=== PATIENT | male | born 1945 | race Caucasian/White ===

== ENCOUNTER → 2017-02-27 | Outpatient (CLI) | payer OTHER ==
[~2017-02-27] MED LIST: AMLO10TA2 PO; ASPI-435 PO; BUPRTAB51 PO; GLIM1TAB2 PO; HYG/25 PO; LABE1TAB28 PO; LANS15CA6 PO; LOSA1TAB38 PO; OFLO0.3S4 OPL; PIOG15TA26 PO; PRED1SUS3 OPL; PSYLCAP5 PO; SIMV10TA5 PO; VENL150T33 PO
[2017-02-27 13:32] LABS: ESTIMATED AVERAGE GLUCOSE 180 mg/dl; HA1C FLAG Normal (Normal)
[2017-02-27 13:58] LABS: CALCIUM 9.1 mg/dl (8.5-10.1)
[2017-02-27 14:11] LABS: ALT/SGPT 56 U/L (12-78); BLOOD UREA NITROGEN 21 mg/dl (7-18); BUN/CREATININE RATIO 23.1 (10-20); CARBON DIOXIDE 28 mmol/L (21-32); CHLORIDE 103 mmol/L (98-107); CHOLESTEROL 164 mg/dl (0-200); CREATININE 0.89 mg/dl (0.60-1.40); GLUCOSE 184 mg/dl (70-99); POTASSIUM 3.6 mmol/L (3.5-5.1); SODIUM 139 mmol/L (136-145); TRIGLYCERIDES 119 mg/dl (0-150); VERY LOW DENSITY LIPOPROT CALC 24 mg/dl
[2017-02-27 14:14] LABS: ALB/GLOB RATIO 1.2 (0.9-2); ALKALINE PHOSPHATASE 103 U/L (45-117); AST/SGOT 52 U/L (15-37); CHOLESTEROL/HDL RATIO 3.7; HDL CHOLESTEROL 44 mg/dl; LDL CHOLESTEROL CALCULATED 96 mg/dl
== END | disposition home or self-care (01) ==
LOC: C.LABMFLN 09:06
PROVIDERS: ATTEND Urology
DX: E11.9 Type 2 diabetes mellitus without complications (principal); E78.00 Pure hypercholesterolemia, unspecified; R97.20 Elevated prostate specific antigen [PSA]

== ENCOUNTER → 2017-07-07 | Outpatient (CLI) | payer OTHER ==
[2017-07-07 14:20] LABS: ALT/SGPT 43 U/L (12-78); BLOOD UREA NITROGEN 23 mg/dl (7-18); BUN/CREATININE RATIO 25.8 (10-20); CALCIUM 9.6 mg/dl (8.5-10.1); CARBON DIOXIDE 25 mmol/L (21-32); CHLORIDE 105 mmol/L (98-107); CHOLESTEROL 153 mg/dl (0-200); CREATININE 0.89 mg/dl (0.60-1.40); GLUCOSE 88 mg/dl (70-99); SODIUM 138 mmol/L (136-145); TRIGLYCERIDES 138 mg/dl (0-150); VERY LOW DENSITY LIPOPROT CALC 28 mg/dl
[2017-07-07 14:23] LABS: ALB/GLOB RATIO 1.1 (0.9-2); ALKALINE PHOSPHATASE 74 U/L (45-117); AST/SGOT 44 U/L (15-37); CHOLESTEROL/HDL RATIO 4.1; HDL CHOLESTEROL 37 mg/dl; LDL CHOLESTEROL CALCULATED 88 mg/dl
[2017-07-08 07:53] LABS: ESTIMATED AVERAGE GLUCOSE 134 mg/dl; HA1C FLAG Normal (Normal)
== END | disposition home or self-care (01) ==
LOC: C.LABMFLN 07:47
PROVIDERS: ATTEND Family Medicine
DX: E11.9 Type 2 diabetes mellitus without complications (principal); E78.00 Pure hypercholesterolemia, unspecified

== ENCOUNTER → 2017-11-30 | Outpatient (CLI) | payer OTHER ==
[2017-11-30 13:14] LABS: ALT/SGPT 42 U/L (12-78); BLOOD UREA NITROGEN 23 mg/dl (7-18); CALCIUM 8.8 mg/dl (8.5-10.1); CARBON DIOXIDE 25 mmol/L (21-32); CHOLESTEROL 158 mg/dl (0-200); GLUCOSE 143 mg/dl (70-99); POTASSIUM 4.1 mmol/L (3.5-5.1); SODIUM 137 mmol/L (136-145)
[2017-11-30 13:17] LABS: ALKALINE PHOSPHATASE 67 U/L (45-117); AST/SGOT 31 U/L (15-37); LDL CHOLESTEROL CALCULATED 87 mg/dl; TOTAL PROTEIN 7.1 gm/dl (6.4-8.2)
[2017-11-30 13:31] LABS: HEMOGLOBIN A1C 5.6 % (4.5-5.6)
== END | disposition home or self-care (01) ==
LOC: C.LABMFLN 07:37
PROVIDERS: ATTEND Family Medicine
DX: E11.9 Type 2 diabetes mellitus without complications (principal); I10 Essential (primary) hypertension; E78.00 Pure hypercholesterolemia, unspecified; M79.1 Myalgia

== ENCOUNTER → 2017-12-19 | Outpatient (CLI) | payer OTHER | END | disposition home or self-care (01) | LOC: C.LABMFLN 07:51 | PROVIDERS: ATTEND Family Medicine | DX: R31.0 Gross hematuria (principal) ==

== ENCOUNTER → 2018-06-20 | Outpatient (CLI) | payer OTHER ==
[2018-06-20 12:52] LABS: HEMOGLOBIN A1C 6.3 % (4.5-5.6)
[2018-06-20 13:19] LABS: ALKALINE PHOSPHATASE 86 U/L (45-117); ALT/SGPT 39 U/L (12-78); AST/SGOT 31 U/L (15-37); BLOOD UREA NITROGEN 17 mg/dl (7-18); CALCIUM 8.7 mg/dl (8.5-10.1); CARBON DIOXIDE 28 mmol/L (21-32); CHOLESTEROL 169 mg/dl (0-200); CREATININE 0.82 mg/dl (0.60-1.40); GLUCOSE 85 mg/dl (70-99); LDL CHOLESTEROL CALCULATED 87 mg/dl; POTASSIUM 3.6 mmol/L (3.5-5.1); SODIUM 138 mmol/L (136-145); TOTAL PROTEIN 7.9 gm/dl (6.4-8.2)
== END | disposition home or self-care (01) ==
LOC: C.LABMFLN 09:39
PROVIDERS: ATTEND Family Medicine
DX: E11.9 Type 2 diabetes mellitus without complications (principal); I10 Essential (primary) hypertension; E78.00 Pure hypercholesterolemia, unspecified

== ENCOUNTER 2021-01-28 06:55 | Inpatient (IN) ==
--- NOTE | 2021-01-07 12:00 | PAT Medication Instructions ---
Medication Instructions Date of Service January 07, 2021 Home Medications Medication Instructions Recorded aspirin 81 mg tablet,delayed 81 mg PO DAILY #90 tab 06/12/19 release blood sugar diagnostic #200 ea 06/12/19 hydrocodone 5 mg-acetaminophen 325 1 tab PO QID PRN #120 tab 06/12/19 mg tablet travoprost 0.004 % eye drops 1 drops OP QPM #5 ml 06/12/19 CPAP Machine #1 ea 08/22/19 albuterol sulfate 90 mcg/actuation 2 puffs INHALATION Q4H PRN #1 ea 09/30/19 breath activated powder inhaler labetalol 200 mg tablet 200 mg PO BID #180 tab 05/12/20 glimepiride 1 mg tablet 1 mg PO BID #60 tab 07/30/20 mupirocin 2 % topical ointment 1 applic TOPICAL BID #15 g 08/13/20 valacyclovir 1 gram tablet 2,000 mg PO Q12H 1 Days #20 tab 08/13/20 MDD cold sores lansoprazole 30 mg capsule,delayed 30 mg PO DAILY #30 cap 10/02/20 release losartan 100 mg tablet 100 mg PO DAILY #30 tab 10/19/20 pioglitazone 15 mg-metformin 850 1 tab PO BID #180 tab 11/19/20 mg tablet venlafaxine 150 mg 300 mg PO DAILY #60 cap 11/19/20 capsule,extended release 24 hr bupropion HCl 150 mg 24 hr tablet, 450 mg PO QAM #90 tab 11/30/20 extended release amlodipine 10 mg tablet 10 mg PO DAILY #30 tab 12/01/20 chlorthalidone 25 mg tablet 12.5 mg PO DAILY #45 tab 12/01/20 aspirin 81 mg tablet,delayed release 81 mg PO DAILY hydrocodone 5 mg-acetaminophen 325 mg tablet 1 tab PO QID PRN travoprost 0.004 % eye drops 1 drops OP QPM albuterol sulfate 90 mcg/actuation breath activated powder inhaler 2 puffs INHALATION Q4H PRN labetalol 200 mg tablet 200 mg PO BID glimepiride 1 mg tablet 1 mg PO BID mupirocin 2 % topical ointment 1 applic TOPICAL BID valacyclovir 1 gram tablet 2,000 mg PO Q12H lansoprazole 30 mg capsule,delayed release 30 mg PO DAILY losartan 100 mg tablet 100 mg PO DAILY pioglitazone 15 mg-metformin 850 mg tablet 1 tab PO BID venlafaxine 150 mg capsule,extended release 24 hr 300 mg PO DAILY bupropion HCl 150 mg 24 hr tablet, extended release 450 mg PO QAM amlodipine 10 mg tablet 10 mg PO DAILY chlorthalidone 25 mg tablet 12.5 mg PO DAILY Continue as directed mupirocin 2 % topical ointment 1 applic TOPICAL BID (do not use near surgical site within 24 hrs of surgery) DO NOT take the morning of surgery glimepiride 1 mg tablet 1 mg PO BID losartan 100 mg tablet 100 mg PO DAILY pioglitazone 15 mg-metformin 850 mg tablet 1 tab PO BID chlorthalidone 25 mg tablet 12.5 mg PO DAILY Take morning of surgery With a small sip of water, OTHERWISE NOTHING TO EAT OR DRINK AFTER MIDNIGHT: aspirin 81 mg tablet,delayed release 81 mg PO DAILY hydrocodone 5 mg-acetaminophen 325 mg tablet 1 tab PO QID PRN (if needed, may be taken up to four hours before surgery) albuterol sulfate 90 mcg/actuation breath activated powder inhaler 2 puffs INHALATION Q4H PRN (if needed, and bring with you to the hospital) labetalol 200 mg tablet 200 mg PO BID valacyclovir 1 gram tablet 2,000 mg PO Q12H (if needed) lansoprazole 30 mg capsule,delayed release 30 mg PO DAILY venlafaxine 150 mg capsule,extended release 24 hr 300 mg PO DAILY bupropion HCl 150 mg 24 hr tablet, extended release 450 mg PO QAM amlodipine 10 mg tablet 10 mg PO DAILY (medications listed as 'DAILY' were presumed to be taken in the morning. If this is incorrect, take them at their normal time and do not take them the morning of your surgery) Take evening before surgery hydrocodone 5 mg-acetaminophen 325 mg tablet 1 tab PO QID PRN (if needed) travoprost 0.004 % eye drops 1 drops OP QPM albuterol sulfate 90 mcg/actuation breath activated powder inhaler 2 puffs INHALATION Q4H PRN (if needed) labetalol 200 mg tablet 200 mg PO BID glimepiride 1 mg tablet 1 mg PO BID valacyclovir 1 gram tablet 2,000 mg PO Q12H (if needed) pioglitazone 15 mg-metformin 850 mg tablet 1 tab PO BID Other Notes *Bring your eye drops with you to the hospital* If you have any questions please call us at [phone] or [phone] or [phone] or [phone]
--- NOTE | 2021-01-12 13:35 | Anesthesiology Consultation ---
Date of Service January 12, 2021 Assessment & Plan (1) Encounter for pre-operative examination: COVID Status: As of 01/12 assessment, patient denies travel to endemic area, known exposure/sick contacts, or symptoms of COVID19. Patient instructed that they and their household members must follow strict social distancing guidelines, wear a mask in public and avoid travel/events/gatherings for 14 days prior to surgery. Preoperative COVID19 testing to be completed prior to surgery per surgeon's arrangements. Patient made aware to self-isolate as much as possible between COVID testing and surgery. Pt unable to void at [facility] (self-caths). Will do UA at home and bring to 01/15 PCP clearance with [facility]. Chart Review Chart Review: Acceptable Risk for Surgery (pending PCP clearance -- 01/15 [facility]) and Patient NOT seen in Pre Admission Testing Teaching & Discussion Instructed NPO after midnight before surgery, except medications with 15 cc of water. Medication instructions provided according to the [facility] guidelines. History Surgery Operation Date: 01/27/21 10:45 Proposed Procedures p L3-S1 Decompression Fusion Spinal Cord Monitoring - Gilbert Bedoya, Height/Weight Height: 6 ft Weight: 97.2 kg Allergies Allergy/AdvReac Type Severity Reaction Status Date / Time simvastatin Allergy Intermediate ? abnormal Verified 12/21/20 09:33 labs, pt unsure exactly cephalexin Allergy Mild upset Verified 12/21/20 09:33 stomach hydrochlorothiazide Allergy Mild UPSET Verified 12/21/20 09:33 STOMACH sulfamethoxazole Allergy Mild UPSET Verified 12/21/20 09:33 STOMACH trimethoprim Allergy Mild UPSET Verified 12/21/20 09:33 STOMACH Bactrim Allergy Unknown UPSET Verified 08/26/15 09:51 STOMACH dicloxacillin AdvReac Mild NAUSEA/VOMI Verified 12/21/20 09:33 TING Penicillins AdvReac Mild NAUSEA/VOMI Verified 12/21/20 09:33 TING Medications Home Medications Medication Instructions Recorded Confirmed Last Taken aspirin 81 mg tablet,delayed 81 mg PO DAILY #90 tab 06/12/19 12/21/20 Unknown release blood sugar diagnostic #200 ea 06/12/19 08/13/20 Unknown hydrocodone 5 mg-acetaminophen 325 1 tab PO QID PRN #120 tab 06/12/19 12/21/20 Unknown mg tablet travoprost 0.004 % eye drops 1 drops OP QPM #5 ml 06/12/19 12/21/20 Unknown CPAP Machine #1 ea 08/22/19 08/13/20 Unknown albuterol sulfate 90 mcg/actuation 2 puffs INHALATION Q4H PRN #1 ea 09/30/19 12/21/20 Unknown breath activated powder inhaler labetalol 200 mg tablet 200 mg PO BID #180 tab 05/12/20 12/21/20 Unknown glimepiride 1 mg tablet 1 mg PO BID #60 tab 07/30/20 12/21/20 Unknown mupirocin 2 % topical ointment 1 applic TOPICAL BID #15 g 08/13/20 12/21/20 Unknown valacyclovir 1 gram tablet 2,000 mg PO Q12H 1 Days #20 tab 08/13/20 12/21/20 Unknown MDD cold sores lansoprazole 30 mg capsule,delayed 30 mg PO DAILY #30 cap 10/02/20 12/21/20 Unknown release losartan 100 mg tablet 100 mg PO DAILY #30 tab 10/19/20 12/21/20 Unknown pioglitazone 15 mg-metformin 850 1 tab PO BID #180 tab 11/19/20 12/21/20 Unknown mg tablet venlafaxine 150 mg 300 mg PO DAILY #60 cap 11/19/20 12/21/20 Unknown capsule,extended release 24 hr bupropion HCl 150 mg 24 hr tablet, 450 mg PO QAM #90 tab 11/30/20 12/21/20 Unknown extended release amlodipine 10 mg tablet 10 mg PO DAILY #30 tab 12/01/20 12/21/20 Unknown chlorthalidone 25 mg tablet 12.5 mg PO DAILY #45 tab 12/01/20 12/21/20 Unknown Past Medical History Medical History (Updated 01/12/21 @ 13:38 by Samson Amado) Back pain, chronic Diabetes mellitus, type 2 Elevated prostate specific antigen (PSA) Fatty liver GERD (gastroesophageal reflux disease) Hyperlipidemia Hypertension Lumbar spinal stenosis Obstructive sleep apnea USES CPAP DEVICE DILIGENTLY Osteoarthritis Retention of urine PT STATES SELF CATH BID Urinary retention Exercise / Class Metabolic Activity II 4-5 Yardwork/Stairs/Walk up hill (+SOB with 1 FOS due to leg/back pain, denies any chest pain) Past Family History Family History (Updated 12/21/20 @ 09:46 by Larisa Cintron RN) Brother Family history of diabetes mellitus Other Diabetes Heart disease Hypertension Lung cancer Nephrolithiasis No family history of adverse response to anesthesia Denies family history of Prostate cancer Past Surgical History Surgical History (Updated 12/21/20 @ 09:45 by Larisa Cintron RN) H/O knee surgery LEFT History of carpal tunnel release RT History of cataract surgery RT/LEFT History of colonoscopy History of herniorrhaphy RT INGUINAL History of tooth extraction Hx of tonsillectomy Past Anesthesia History No Hx of Anesthesia Complications and No Family Hx of Anesthesia Complications History of PONV No Hx of PONV and No Hx of Motion Sickness Social History Smoking Status: Never smoker Do You Dip or Chew Tobacco: No Hx Alcohol Use: No Hx Substance Use: No substance use type: does not use Review of Systems Pt denies any recent chest pain, shortness of breath, palpitations, cough, fever, URI, or uncontrolled acid reflux. Physical Exam Vital Signs BP: 142/74 P: 71bpm SPO2: 96% RA T: 98.2 F R: 16 ENMT Mouth: + dentures ("semi-permanent upper partial"); no chipped teeth and no loose teeth Thyromental Distance: > or= 3.5 Finger Breadths Mallampati Class: II Neck normal visual inspection and + limited neck extension (mildly) Respiratory normal respiratory effort, lungs clear to auscultation Cardiovascular RRR, no murmur, no edema Vessels: no carotid bruit Testing Laboratory Results 01/12/21 13:47 01/12/21 13:47 PT 10.8 Seconds (9.0-12.0) 01/12/21 13:47 INR 1.1 (0.9-1.1) 01/12/21 13:47 APTT 25.3 Seconds (21.0-31.0) 01/12/21 13:47 Hemoglobin A1c 6.4 % (4.5-5.6) H 01/12/21 13:47 Blood Type O Positive 01/12/21 13:47 Antibody Screen NEGATIVE 01/12/21 13:47 Electrocardiogram Date: 01/12/21 Findings: + NSR @ (69bpm) Chest X-Ray Date: 01/12/21 IMPRESSION: Low lung volumes with mild elevation of the right hemidiaphragm. Otherwise, no acute process within the chest.
--- NOTE | 2021-01-12 14:16 | XRay Report ---
XR chest Pre-admission PA/Lat HISTORY: Preop. COMPARISON: None. FINDINGS: There are low lung volumes with mild elevation of the right hemidiaphragm. No pneumothorax. No pleural effusions. No focal lung consolidations to suggest pneumonia. No evidence for pulmonary e jina. IMPRESSION: Low lung volumes with mild elevation of the right hemidiaphragm. Otherwise, no acute process within t he chest. ACT 112: Negative or not required by law. Electronically signed by: Yobany Isaac M.D. 01/12/2021 2:15 PM
[2021-01-12 15:13] LABS: Basophils # (auto) 0.03 K/uL (0-0.2); Basophils % (auto) 0.5 %; Eosinophils # (auto) 0.07 K/uL (0-0.5); Eosinophils % (auto) 1.1 %; Hematocrit (blood only) 40.4 % (42-52); Hemoglobin 13.1 g/dL (14.0-18.0); Immature Granulocytes # (auto) 0.01 K/uL (0.00-0.02); Immature Granulocytes % (auto) 0.2 %; Lymphocytes # (auto) 1.47 K/uL (1.2-3.4); Lymphocytes % (auto) 22.7 %; Mean Corpuscular Hemoglobin 28.7 pg (25-34); Mean Corpuscular Hgb Conc 32.4 g/dL (32-36); Mean Corpuscular Volume 88.6 fL (80-100); Mean Platelet Volume 11.4 fL (7.4-10.4); Monocytes # (auto) 0.49 K/uL (0.11-0.59); Monocytes % (auto) 7.6 %; Neutrophils # (auto) 4.42 K/uL (1.4-6.5); Neutrophils % (auto) 67.9 %; Platelet Count 170 K/uL (130-400); RDW Standard Deviation 52.3 fL (36.4-46.3); Red Blood Count 4.56 M/uL (4.7-6.1); White Blood Count 6.49 K/uL (4.8-10.8)
[2021-01-12 15:24] LABS: BUN Creatinine Ratio 26.5 (10-20); Calcium 8.6 mg/dl (8.5-10.1); Creatinine Clr Calc Pharmacy 63.7 ml/min; Est GFR (African American) 66.6; Est GFR (Non-African American) 57.5; Potassium 4.4 mmol/L (3.5-5.1)
[2021-01-12 15:26] LABS: INR 1.1 (0.9-1.1); Partial Thromboplastin Time 25.3 Seconds (21.0-31.0); Prothrombin Time 10.8 Seconds (9.0-12.0)
[2021-01-13 05:46] LABS: Estimated Average Glucose 137 mg/dl; Hemoglobin A1C 6.4 % (4.5-5.6)
--- NOTE | 2021-01-13 06:32 | Electrocardiogram Report ---
Test Reason : Blood Pressure : / mmHG Vent. Rate : 069 BPM Atrial Rate : 069 BPM P-R Int : 180 ms QRS Dur : 082 ms QT Int : 410 ms P-R-T Axes : 068 010 081 degrees QTc Int : 439 ms Normal sinus rhythm Normal ECG When compared with ECG of 15-AUG-2005 09:49, T wave inversion less evident in Lateral leads Confirmed by Drew Carson ([id number]) on 01/13/2021 6:32:01 AM Referred By: Gilbert Bedoya Confirmed By:Drew Carosn
[~2021-01-28 06:55] MED LIST changes: +ACETAMINOPHEN 500 MG TAB PO SCH; -AMLO10TA2 PO; -ASPI-435 PO; -BUPRTAB51 PO; +CeleBREX 200 MG CAP PO SCH; +GABAPENTIN 300 MG CAP PO SCH; -GLIM1TAB2 PO; -HYG/25 PO; -LABE1TAB28 PO; -LANS15CA6 PO; -LOSA1TAB38 PO; +LR 15ML/HR IV SCH; -OFLO0.3S4 OPL; -PIOG15TA26 PO; -PRED1SUS3 OPL; -PSYLCAP5 PO; -SIMV10TA5 PO; -VENL150T33 PO; +ceFAZolin 2000MG 2,000 MG/15 ML SYR IV SCH
[2021-01-28] MEDS ORDERED: CeleBREX 200 MG CAP ONE (07:13)
[2021-01-28] MEDS ORDERED: GABAPENTIN 300 MG CAP ONE (07:13)
[2021-01-28] MEDS ORDERED: ACETAMINOPHEN 500 MG TAB ONE (07:13)
[2021-01-28] MEDS ORDERED: ceFAZolin 2,000 MG/15 ML IV PUSH IV ONE (07:14)
--- NOTE | 2021-01-28 07:37 | History & Physical Bridge Note ---
Date of Service January 28, 2021 History & Physical Bridge Note I have examined the patient, reviewed the History & Physical and in the interval since the performance of the History & Physical I have noted the following changes of clinical significance: no changes noted
--- NOTE | 2021-01-28 07:38 | History & Physical Report ---
Date of Service January 28, 2021 Assessment & Plan (1) Lumbar spinal stenosis: Admission and Anticipated Discharge Date Admission Date: L3-S1 decompression fusion History of Present Illness Chief Complaint: Back and leg pain Primary Care Provider: Pradip Trinidad MD This is a 75-year-old male who presents with chronic persistent back and leg pain. After failing course of nonoperative care is here for surgical invention. Allergies Allergy/AdvReac Type Severity Reaction Status Date / Time simvastatin Allergy Intermediate ? abnormal Verified 01/28/21 07:15 labs, pt unsure exactly cephalexin Allergy Mild upset Verified 01/28/21 07:15 stomach hydrochlorothiazide Allergy Mild UPSET Verified 01/28/21 07:15 STOMACH sulfamethoxazole Allergy Mild UPSET Verified 01/28/21 07:15 STOMACH trimethoprim Allergy Mild UPSET Verified 01/28/21 07:15 STOMACH Bactrim Allergy Unknown UPSET Verified 08/26/15 09:51 STOMACH dicloxacillin AdvReac Mild NAUSEA/VOMI Verified 01/28/21 07:15 TING Penicillins AdvReac Mild NAUSEA/VOMI Verified 01/28/21 07:15 TING Home Medications Medication Instructions Recorded Confirmed Type aspirin 81 mg tablet,delayed 81 mg PO DAILY #90 tab 06/12/19 01/28/21 Rx release blood sugar diagnostic #200 ea 06/12/19 01/15/21 Rx hydrocodone 5 mg-acetaminophen 325 1 tab PO QID PRN #120 tab 06/12/19 01/28/21 Rx mg tablet travoprost 0.004 % eye drops 1 drops OP QPM #5 ml 06/12/19 01/28/21 Rx CPAP Machine #1 ea 08/22/19 01/15/21 Rx albuterol sulfate 90 mcg/actuation 2 puffs INHALATION Q4H PRN #1 ea 09/30/19 01/28/21 Rx breath activated powder inhaler labetalol 200 mg tablet 200 mg PO BID #180 tab 05/12/20 01/28/21 Rx glimepiride 1 mg tablet 1 mg PO BID #60 tab 07/30/20 01/28/21 Rx mupirocin 2 % topical ointment 1 applic TOPICAL BID #15 g 08/13/20 01/28/21 Rx valacyclovir 1 gram tablet 2,000 mg PO Q12H 1 Days #20 tab 08/13/20 01/28/21 Rx MDD cold sores lansoprazole 30 mg capsule,delayed 30 mg PO DAILY #30 cap 10/02/20 01/28/21 Rx release pioglitazone 15 mg-metformin 850 1 tab PO BID #180 tab 11/19/20 01/28/21 Rx mg tablet amlodipine 10 mg tablet 10 mg PO DAILY #30 tab 12/01/20 01/28/21 Rx chlorthalidone 25 mg tablet 12.5 mg PO DAILY #45 tab 12/01/20 01/28/21 Rx bupropion HCl 150 mg 24 hr tablet, 450 mg PO QAM #90 tab 01/25/21 01/28/21 Rx extended release losartan 100 mg tablet 100 mg PO DAILY #30 tab 01/25/21 01/28/21 Rx venlafaxine 150 mg 300 mg PO DAILY #60 cap 01/25/21 01/28/21 Rx capsule,extended release 24 hr Past Med/Surg History Medical History Back pain, chronic Diabetes mellitus, type 2 Elevated prostate specific antigen (PSA) Fatty liver GERD (gastroesophageal reflux disease) Hyperlipidemia Hypertension Lumbar spinal stenosis Lumbar spinal stenosis Obstructive sleep apnea USES CPAP DEVICE DILIGENTLY Osteoarthritis Retention of urine PT STATES SELF CATH BID Urinary retention Surgical History H/O knee surgery LEFT History of carpal tunnel release RT History of cataract surgery RT/LEFT History of colonoscopy History of herniorrhaphy RT INGUINAL History of tooth extraction Hx of tonsillectomy Family History Brother Family history of diabetes mellitus Other Diabetes Heart disease Hypertension Lung cancer Nephrolithiasis No family history of adverse response to anesthesia Denies family history of Prostate cancer Social History Smoking Status: Never smoker Second Hand Exposure: No; Do You Dip or Chew Tobacco: No; Hx Alcohol Use: No Hx Substance Use: No Preferred Language: Yi Visual Impairment: No Limitations Hearing Ability: Normal Rotor Balancer Required: No Beliefs That Will Affect Care: None marital status: Current Living Situation: Spouse current occupational status: retired Feels Safe at Home: Yes Safety Concerns: Feels Safe At This Time Childhood Exposure to Second-Hand Smoke: No caffeine: Yes Dental Care, Regularly: No Physical Activity Frequency: 1-2 Times per Week 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
[2021-01-28] MEDS ORDERED: NEOSTIGMINE METHYLSULFATE 1 MG/ML 10ML VIAL ONE (07:40)
[2021-01-28] MEDS ORDERED: GLYCOPYRROLATE 0.2 MG/ML VIAL ONE ×2 (07:40→08:51)
[2021-01-28] MEDS ORDERED: LIDOCAINE HCL 2% 2 ML VIAL/AMP(20MG/ML) INFIL ONE (07:40)
[2021-01-28] MEDS ORDERED: ONDANSETRON INJ 2 MG/ML 2 ML VIAL ONE (07:40)
[2021-01-28] MEDS ORDERED: PROPOFOL IV EMULSION 10 MG/ML 20 ML VIAL IV ONE (07:40)
[2021-01-28] MEDS ORDERED: DEXAMETHASONE SOD INJ 4 MG/ML VIAL ONE (07:40)
[2021-01-28] MEDS ORDERED: MIDAZOLAM HCL 1 MG/ML 2ML VIAL ONE (07:41)
[2021-01-28] MEDS ORDERED: fentaNYL citrate 100 MCG/2 ML VIAL ONE ×2 (07:41)
[2021-01-28] MEDS ORDERED: ROCURONIUM BROMIDE 10 MG/ML 5 ML VIAL IV ONE (07:45)
[2021-01-28] MEDS ORDERED: BACITRACIN INJ 50,000 UNIT VIAL ONE (08:09)
[2021-01-28] MEDS ORDERED: BUPIVACAINE/EPINEPHRINE 0.5% MPF 1:200,000 30 ML VIAL ONE (08:09)
[2021-01-28] MEDS ORDERED: ONDANSETRON INJ 2 MG/ML 2 ML VIAL IV PRN ×2 (08:13→12:12)
[2021-01-28] MEDS ORDERED: HYDROmorphone INJ 1 MG/ML SYRINGE IV PRN (08:13)
[2021-01-28] MEDS ORDERED: ATROPINE SULFATE 0.1 MG/ML 10ML SYR IV PRN (08:13)
[2021-01-28] MEDS ORDERED: ePHEDrine sulfate 50 MG/ML AMP ONE (09:08)
[2021-01-28] MEDS ORDERED: PHENYLEPHRINE 100MCG/ML 5ML SYR ONE ×2 (09:08→10:43)
[2021-01-28] MEDS ORDERED: ePHEDrine sulfate 50 MG/ML SYR ONE (09:18)
[2021-01-28] MEDS ORDERED: ATROPINE SO4 1 MG/ML 1ML VIAL ONE (09:57)
[2021-01-28] MEDS ORDERED: PHENYLEPHRINE HCL 10 MG/ML VIAL ONE (09:57)
[2021-01-28] MEDS ORDERED: VASOPRESSIN 20 UNIT/ML VIAL ONE (09:57)
[2021-01-28] MEDS ORDERED: FLOSEAL HEMOSTATIC MATRIX 10ML TOP ONE (10:31)
--- NOTE | 2021-01-28 10:42 | Operative Report ---
Post Operative Report Pre & Post Diagnosis Operation Date: 01/28/21 08:15 Pre-Op Diagnosis: Spinal Stenosis, Lumbar Region with Neurogenic Claudication Post-Op Diagnosis: Spinal Stenosis, Lumbar Region with Neurogenic Claudication I identified the patient and participated in the time-out.: Yes Procedure Operation Date: 01/28/21 08:15 Actual Procedures #1 lumbar decompression bilateral medial facetectomies and foraminotomies L3-4 L4-5 and L5-S1. #2 posterior spinal fusion L3-4 L4-5 L5-S1. #3 patient posterior segmental instrumentation L3-S1. #4 interbody fusion L4-5 and L5-S1. #5 placement peek cage 14 x 26 mm at L4-5 and 14 x 26 mm at L5-S1. #6 placement locally harvested morselized autograft in the posterior lateral gutters. #7 placement infuse collagen sponge, master graft in the posterior lateral gutters and I factor in the interbody space. Surgeon Gilbert Bedoya, Patient Svcs Mgr Maggy Torres Estimated Blood Loss 200 Findings Consistent with Post-Op Diagnosis Specimens None Indications This is a 75-year-old male presents with above-mentioned diagnosis of the pain since course of nonoperative care is here for the above-mentioned procedure. Description of Procedure Patient met with identified informed consent obtained. Patient was then taken to the operative suite underwent a patient placed in prone position injectable top Amrik frame. All bony prominences well-padded eyes inspected to ensure no external pressure placed upon up at this point lumbar spine was prepped and draped no sterile fashion. Sharp dissection with the assistance of Bovie cautery was performed down to and exposing the lamina and transverse processes of L3-L4-L5 and the sacral ala bilaterally. From caudal to cephalad fashion complete laminectomy of L5 L4 and L3 was performed including bilateral medial facetectomies and foraminotomies addressing severe spinal stenosis. Pedicle screws then placed in all 3 L4-L5 and S1 levels bilaterally with assistance of fluoroscopy and the proper sized isac placed. Believe a transforaminal approach on the right a complete discectomy of L5-S1 was performed endplates curetted to subcortical bleeding bone and a 14 x 26 mm peek cage filled with I factor tapped in position. Then proceeded L4-5. Again by way of a transforaminal portion right complete discectomy performed endplates curetted to subcortically bone and again a 14 x 26 mm peek cage filled with I factor tapped in position. The rods were then locked in final position bilaterally. The transverse processes of L3-L4-L5 and sacral ala burred to subcortical bleeding bone. Infuse collagen sponge master graft local autograft was placed in the posterior gutters. 15 ro und RUDY drain inserted. The incision was then closed with 1 Vicryl the fascia 2- 0 Vicryl subcutaneously and 4 Monocryl for final skin closure. Steri-Strip sterile dressings placed. Patient will continue PACU stable condition. Please note spinal cord monitoring was utilized at the procedure no changes noted. Lastly Maggy Torres was present at the entire surgery involved the patient positioning complex portions of the surgery and final skin closure. I attest to the content of the Intraoperative Record and any orders documented therein. Any exceptions are noted below.
--- NOTE | 2021-01-28 10:43 | Fluoroscopy Report ---
FL lumbar spine 2-3V CLINICAL HISTORY: L3-S1 DECOMPRESSION AND FUSION COMPARISON STUDY: None. FLUOROSCOPY TIME: 29 seconds. FINDINGS: 2 fluoroscopic spot images of the lumbar spine demonstrate L3-S1 posterior decompression an d fusion with pedicle screws and rods. The hardware appears intact. IMPRESSION: Fluoroscopy provided for L3-S1 posterior decompression and fusion ACT 112: Negative or not required by law. Electronically signed by: Yobany Isaac M.D. 01/28/2021 10:42 AM
[2021-01-28] MEDS ORDERED: DO NOT ADMINISTER FLU VACCINE PRN (12:12)
[2021-01-28] MEDS ORDERED: diphenhydrAMINE Capsule 25 MG CAP PO PRN (12:12)
[2021-01-28] MEDS ORDERED: bisacodyL 10 MG SUPP PR PRN (12:12)
[2021-01-28] MEDS ORDERED: NALOXONE HCL 0.4 MG/1 ML VIAL/CARP IV PRN (12:12)
[2021-01-28] MEDS ORDERED: hydrOXYzine HCl 25 MG TAB PO PRN (12:12)
[2021-01-28] MEDS ORDERED: ACETAMINOPHEN 1,000 MG/100 ML VIAL IV PRN (12:12)
[2021-01-28] MEDS ORDERED: PROMETHAZINE HCL 12.5 MG in SODIUM CHLORIDE 0.9% 50 ML IV PRN (12:12)
[2021-01-28] MEDS ORDERED: HYDROmorphone INJ 0.5 MG/0.5 ML SYR IV PRN (12:12)
[2021-01-28] MEDS ORDERED: DO NOT ADMINISTER PNEUMOCOCCAL VACCINE PRN (12:12)
[2021-01-28] MEDS ORDERED: ALUMINUM/MAGNESIUM SUSP 30 ML UDC PO PRN (12:12)
[2021-01-28] MEDS ORDERED: METOCLOPRAMIDE HCL INJ 5 MG/ML 2 ML VIAL IV PRN (12:12)
[2021-01-28] MEDS ORDERED: SOD PHOSPHATE/SOD BIPHOSPHATE ENEMA 132 ML BTL PR PRN (12:12)
[2021-01-28] MEDS ORDERED: FAMOTIDINE 20 MG TAB PO PRN (12:12)
[2021-01-28] MEDS ORDERED: ONDANSETRON 4 MG OD TAB PO PRN (12:12)
[2021-01-28] MEDS ORDERED: MAGNESIUM HYDROXIDE SUSP 30 ML UDC PO PRN (12:12)
[2021-01-28] MEDS ORDERED: LORazepam 0.5 MG TAB PO PRN (12:12)
[2021-01-28] MEDS ORDERED: LORazepam 0.5 MG/1 ML VIAL IV PRN (12:12)
[2021-01-28] MEDS ORDERED: traMADol HCL 50 MG TABLET PO PRN (12:12)
[2021-01-28] MEDS: SODIUM CHLORIDE 0.9% 1000ML 1,000 ML IV SCH ×2 (12:28→19:45)
--- NOTE | 2021-01-28 12:32 | Anesthesiology Progress Note ---
Date of Service January 28, 2021 Anesthesia Post Procedure Vital Signs Vital Signs: Temp Pulse Pulse Resp BP Pulse Ox 01/28/21 11:35 36.6 C 54 L 17 98/53 L 95 01/28/21 11:25 49 L 20 90/45 L 95 01/28/21 11:15 49 L 16 93/52 L 94 01/28/21 11:05 52 L 18 86/42 L 95 01/28/21 10:59 36.2 C L 45 L 16 96/47 L 94 01/28/21 07:09 36.7 C 58 L 18 122/67 96 Transfer of Care Handoff Completed per policy Notes Mental Status: alert / awake / arousable Patient Amnestic to Procedure: Yes Nausea / Vomiting: adequately controlled Pain: adequately controlled Airway Patency, RR, SpO2: stable & adequate BP & HR: stable & adequate Hydration State: stable & adequate Anesthetic Complications: no major complications apparent
[2021-01-28] MEDS ORDERED: PHARMACY GLYCEMIC MGMT CONSULT PRN (12:33)
[2021-01-28] MEDS ORDERED: LANTUS PER UNIT CHARGE SQ ONE (12:45)
[2021-01-28] MEDS ORDERED: GLUCOSE 10 TABS/TUBE PO PRN (12:45)
[2021-01-28] MEDS ORDERED: CARBOHYDRATES FOR HYPOGLYCEMIA PO PRN (12:45)
[2021-01-28] MEDS ORDERED: GLUCAGON FOR INJ 1 MG VIAL IM PRN (12:45)
[2021-01-28] MEDS ORDERED: DEXTROSE 50% 50 ML SYRINGE IV PRN (12:45)
[2021-01-28] MEDS ORDERED: GLUCOSE 40% GEL 15 GM TUBE PO PRN (12:45)
[2021-01-28] MEDS: INSULIN ASPART 100 UNITS/ML 3 ML PEN SC SCH ×3 (13:08→22:01)
--- NOTE | 2021-01-28 13:23 | Hospitalist Consultation ---
Date of Consultation January 28, 2021 Assessment & Plan (1) Lumbar spinal stenosis: Status post laminectomy/fasciotomy and stabilization from L3-S1 by Dr. Bedoya Pain is well controlled at this time Patient is still feeling some effects from anesthesia Continue supplemental oxygen until completely recovered Tolerating liquid diet -advance diet as tolerated Further management per spine Ortho (2) Obstructive sleep apnea: CPAP usage at home at 10 cm of water with C-Flex setting of 2 It is anticipated patient may be here as long as Monday Would recommend patient brings in his own CPAP machine and mask Will order CPAP with hospital equipment in the event the patient cannot bring his own machine (3) Nocturnal hypoxemia: Most recent nocturnal pulse oximetry study done 06/16/2020 The patient had 81 desaturation events Time less than or equal to 88% SaO2 was 16.4 minutes Would recommend supplemental oxygen at 2 L/min via nasal cannula HS and prn (4) Generalized osteoarthritis of multiple sites: Pain controlled outpatient with Vicodin [place] prescription monitoring program reviewed Average 30-day MME per day is 10 Current MME per day is 20 Patient has no complaints of pain at the time of my examination (5) GERD (gastroesophageal reflux disease): Continue famotidine No dysphagia or odynophagia Follow clinically (6) Hypertension: Blood pressure well controlled at this time at 115/61 Continue usual home medications including amlodipine, labetalol, losartan Patient does have a heart rate that typically is around 60 bpm EKG reviewed Monitor vital signs per protocol (7) 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 twice daily and pioglitazone 15 mg/Metformin 850 mg p.o. twice daily Would also use sliding scale insulin with NovoLog Advance diet as tolerated (8) Retention of urine: Chronic Patient self catheter at home Continue same inpatient (9) DVT prophylaxis: IGNACIO hose in place SCDs as tolerated Hold on chemical prophylaxis secondary to recent spinal surgery Thank you for including us in the care of this patient. Please refer to Dr. Henao's addendum for further recommendations and corrections. Patient's comorbidities are well controlled. We will sign off and follow peripherally. Please feel free to reconsult as needed. Supervising Physician Co-Signing Physician Notes During my face to face encounter, I examined patient and obtained a history.. I discussed plan with LAVERN Rodriguez and answered all of the patients questions. Patient in hospital for lumbar stenosis s/p laminectomy/fasciotomy and stabilization from L3-S1. I reviewed above note and agree with it. Will order CPAP for sleep apnea History of Present Illness Attending Physician: Gilbert Bedoya DO History of Present Illness Attending: Dr. Henao This is a 75-year-old male with a past lumbar spinal stenosis, urinary retention (self-catheterization), osteoarthritis, hypercholesterolemia, well- controlled diabetes mellitus on oral agents, bilateral carpal tunnel syndrome, allergic rhinitis, nocturnal hypoxemia, elevated PSA, GERD, hypertension. The patient has longstanding history of DJD with lumbar stenosis. He has failed outpatient therapy. He underwent laminectomy/fasciectomy with fixation and cage placement from L3-S1 today. EBL was 200 mL. He has good feeling in his upper and lower extremities. He has no significant back pain. No nausea or vomiting. No chest pain or tightness. No shortness of breath. The patient is a lifelong non-smoker. 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 No recent Covid exposure. Allergies Allergy/AdvReac Type Severity Reaction Status Date / Time simvastatin Allergy Intermediate ? abnormal Verified 01/28/21 07:15 labs, pt unsure exactly cephalexin Allergy Mild upset Verified 01/28/21 07:15 stomach hydrochlorothiazide Allergy Mild UPSET Verified 01/28/21 07:15 STOMACH sulfamethoxazole Allergy Mild UPSET Verified 01/28/21 07:15 STOMACH trimethoprim Allergy Mild UPSET Verified 01/28/21 07:15 STOMACH Bactrim Allergy Unknown UPSET Verified 08/26/15 09:51 STOMACH dicloxacillin AdvReac Mild NAUSEA/VOMI Verified 01/28/21 07:15 TING Penicillins AdvReac Mild NAUSEA/VOMI Verified 01/28/21 07:15 TING Home Medications Medication Instructions Recorded Confirmed Type aspirin 81 mg tablet,delayed 81 mg PO DAILY #90 tab 06/12/19 01/28/21 Rx release blood sugar diagnostic #200 ea 06/12/19 01/15/21 Rx hydrocodone 5 mg-acetaminophen 325 1 tab PO QID PRN #120 tab 06/12/19 01/28/21 Rx mg tablet travoprost 0.004 % eye drops 1 drops OP QPM #5 ml 06/12/19 01/28/21 Rx CPAP Machine #1 ea 08/22/19 01/15/21 Rx albuterol sulfate 90 mcg/actuation 2 puffs INHALATION Q4H PRN #1 ea 09/30/19 01/28/21 Rx breath activated powder inhaler labetalol 200 mg tablet 200 mg PO BID #180 tab 05/12/20 01/28/21 Rx glimepiride 1 mg tablet 1 mg PO BID #60 tab 07/30/20 01/28/21 Rx mupirocin 2 % topical ointment 1 applic TOPICAL BID #15 g 08/13/20 01/28/21 Rx valacyclovir 1 gram tablet 2,000 mg PO Q12H 1 Days #20 tab 08/13/20 01/28/21 Rx MDD cold sores lansoprazole 30 mg capsule,delayed 30 mg PO DAILY #30 cap 10/02/20 01/28/21 Rx release pioglitazone 15 mg-metformin 850 1 tab PO BID #180 tab 11/19/20 01/28/21 Rx mg tablet amlodipine 10 mg tablet 10 mg PO DAILY #30 tab 12/01/20 01/28/21 Rx chlorthalidone 25 mg tablet 12.5 mg PO DAILY #45 tab 12/01/20 01/28/21 Rx bupropion HCl 150 mg 24 hr tablet, 450 mg PO QAM #90 tab 01/25/21 01/28/21 Rx extended release losartan 100 mg tablet 100 mg PO DAILY #30 tab 01/25/21 01/28/21 Rx venlafaxine 150 mg 300 mg PO DAILY #60 cap 01/25/21 01/28/21 Rx capsule,extended release 24 hr oxycodone 5 mg PO Q6H PRN #30 tab 01/29/21 Rx tramadol 50 mg PO Q6H PRN #30 tab 01/29/21 Rx Patient History Medical History Back pain, chronic Diabetes mellitus, type 2 Elevated prostate specific antigen (PSA) Fatty liver GERD (gastroesophageal reflux disease) Hyperlipidemia Hypertension Lumbar spinal stenosis Lumbar spinal stenosis Obstructive sleep apnea USES CPAP DEVICE DILIGENTLY Osteoarthritis Retention of urine PT STATES SELF CATH BID Urinary retention Surgical History H/O knee surgery LEFT History of carpal tunnel release RT History of cataract surgery RT/LEFT History of colonoscopy History of herniorrhaphy RT INGUINAL History of tooth extraction Hx of tonsillectomy S/P spinal surgery 01/28/21 Dr. Gilbert Bedoya- #1 lumbar decompression bilateral medial facetectomies and foraminotomies L3-4 L4-5 and L5-S1. #2 posterior spinal fusion L3-4 L4-5 L5-S1. #3 patient posterior segmental instrumentation L3- S1. #4 interbody fusion L4-5 and L5-S1. #5 placement peek cage 14 x 26 mm at L4-5 and 14 x 26 mm at L5-S1. #6 placement locally harvested morselized autograft in the posterior lateral gutters. #7 placement infuse collagen sponge, master graft in the posterior lateral gutters and I factor in the interbody space. Family History Brother Family history of diabetes mellitus Other Diabetes Heart disease Hypertension Lung cancer Nephrolithiasis No family history of adverse response to anesthesia Denies family history of Prostate cancer Social History Smoking Status: Never smoker Second Hand Exposure: No; Hx Alcohol Use: No Hx Substance Use: No Preferred Language: Turkish Communication Ability: Effective Visual Impairment: No Limitations Hearing Ability: Normal Line Lead Required: No Beliefs That Will Affect Care: None marital status: Current Living Situation: Spouse current occupational status: retired Feels Safe at Home: Yes Childhood Exposure to Second-Hand Smoke: No caffeine: Yes Dental Care, Regularly: No Physical Activity Frequency: 1-2 Times per Week 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 Seatbelt Use: always Sunscreen Use: Yes Assistive Devices: Walker Review of Systems Review of Systems: All systems reviewed & are unremarkable except as noted in HPI & below Physical Exam Physical Exam: GENERAL : No acute distress EYES: No icterus, gaze conjugate NOSE: No evidence of epistaxis. Nasal cannula in place and secure MOUTH: No lesions or candidiasis. Mucosa is moist NECK: Supple. No appreciation of carotid bruits LUNGS: CTA B/L, no wheezes, rales or rhonchi. Good inspirational effort with no induced cough HEART: Regular, rate controlled in the 60s ABDOMEN: Soft, NT, ND, BS Present. No rebound tenderness or guarding EXTREMITIES: No LE edema, pedal pulses intact and equal bilaterally NEURO: A&OX3. Patient able to move lower extremities and wiggle toes. He has good sensation to touch. Pulses are intact and equal bilaterally. Capillary refill is intact bilaterally to all 10 lower extremity digits. Results & Data Results & Data ([facility]) Vital Signs (Past 12 Hours) Vital Signs Temp Pulse Pulse Resp BP Pulse Ox 01/28/21 13:06 65 18 115/61 95 01/28/21 12:32 36.7 C 51 L 18 108/60 96 01/28/21 12:12 36.6 C 56 L 18 119/60 92 01/28/21 11:35 36.6 C 54 L 17 98/53 L 95 01/28/21 11:25 49 L 20 90/45 L 95 01/28/21 11:15 49 L 16 93/52 L 94 01/28/21 11:05 52 L 18 86/42 L 95 01/28/21 10:59 36.2 C L 45 L 16 96/47 L 94 01/28/21 07:09 36.7 C 58 L 18 122/67 96 Laboratory Results 01/12/21 13:47 01/12/21 13:47 INR 1.1 (0.9-1.1) 01/12/21 13:47 Diagnostic Findings FL lumbar spine 2-3V CLINICAL HISTORY: L3-S1 DECOMPRESSION AND FUSION COMPARISON STUDY: None. FLUOROSCOPY TIME: 29 seconds. FINDINGS: 2 fluoroscopic spot images of the lumbar spine demonstrate L3-S1 posterior decompression and fusion with pedicle screws and rods. The hardware appears intact. IMPRESSION: Fluoroscopy provided for L3-S1 posterior decompression and fusion Electronically signed by: Yobany Isaac M.D. 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
--- NOTE | 2021-01-28 13:32 | Pharmacy Report ---
Pharmacy Glycemic Short Note 2 - Date of Service January 28, 2021 - Glycemic Short BSG Results (Last 24 hours): 01/28/21 01/28/21 01/28/21 07:13 10:58 12:20 POC Glucose 151 H 200 H 160 H OUTPATIENT ANTIDIABETIC REGIMEN: * Glimepiride 1 mg PO BIDM * Pioglitazone-metformin 15-850 mg PO BIDM * HbA1c: 6.4% (01/12/21) ASSESSMENT: * LW is a 75 year old male POD #0 s/p L3-S1 decompression/fusion * No steroids administered perioperatively * Fasting BSG of 151 mg/dL, 200 mg/dL postoperatively * Patient has excellent HbA1c, but is controlled with three oral antidiabetic medications * Will give 0.2 unit/kg dose of Lantus x 1 and use fairly aggressive Novolog to start PLAN FOR INPATIENT GLYCEMIC CONTROL: * Hold outpatient oral diabetes medications * Basal insulin * Lantus 20 units (0.2 unit/kg) SQ x 1 * Bolus insulin * NovoLog per scale ACHS or Q6hrs while NPO * Goal Range: Low 110 mg/dL - High 140 mg/dL * Correction Factor: 20 mg/dL/unit * Nutritional / Prandial insulin per carb ratio of 1 unit per 7 grams CHO consumed PLAN FOR DISCHARGE: * HbA1c of 6.4% suggests excellent outpatient glycemic control * Continue current regimen
[2021-01-28] MEDS ORDERED: ACETAMINOPHEN 500 MG TAB PO PRN (14:00)
[2021-01-28] MEDS: CLINDAMYCIN 600 MG in DEXTROSE 5% 50 ML IV SCH ×2 (16:17→23:58)
[2021-01-28] MEDS: oxyCODONE HCL IR 5 MG TAB (IMMEDIATE RELEASE) PO PRN ×2 (16:17→23:28)
[2021-01-28] MEDS ORDERED: GLIMEPIRIDE 2 MG TAB PO SCH (21:00)
[2021-01-28] MEDS ORDERED: PIOGLITAZONE METFORMIN PO SCH (21:00)
[2021-01-28] MEDS: TRAVOPROST Z 0.004% OPH SOLN 2.5 ML BTL OP SCH (22:04)
[2021-01-28] MEDS: DOCUSATE SODIUM/SENNA 50/8.6MG TAB PO SCH (22:04)
[2021-01-28] MEDS: LABETALOL HCL 200 MG TAB PO SCH (22:04)
[2021-01-29] MEDS: HYDROmorphone INJ 1 MG/ML SYRINGE IV PRN ×2 (02:46→16:56)
[2021-01-29] MEDS: SODIUM CHLORIDE 0.9% 1000ML 1,000 ML IV SCH (02:46)
[2021-01-29] MEDS: POLYETHYLENE (MIRALAX) 17 GM PACK PO SCH ×4 (06:08→23:41)
[2021-01-29] MEDS: oxyCODONE HCL IR 5 MG TAB (IMMEDIATE RELEASE) PO PRN ×4 (06:15→20:56)
[2021-01-29 06:36] LABS: Hemoglobin 10.3 g/dL (14.0-18.0); Mean Corpuscular Hgb Conc 33.2 g/dL (32-36); Mean Corpuscular Volume 87.3 fL (80-100); RDW Coefficient of Variation 15.3 % (11.5-14.5); RDW Standard Deviation 48.9 fL (36.4-46.3); Red Blood Count 3.55 M/uL (4.7-6.1); White Blood Count 7.07 K/uL (4.8-10.8)
[2021-01-29 07:01] LABS: BUN Creatinine Ratio 20.2 (10-20); Calcium 7.7 mg/dl (8.5-10.1); Creatinine Clr Calc Pharmacy 73.5 ml/min; Est GFR (African American) 79.7; Est GFR (Non-African American) 68.8; Potassium 3.7 mmol/L (3.5-5.1)
[2021-01-29 07:13] LABS: Basophils # (auto) 0.02 K/uL (0-0.2); Basophils % (auto) 0.3 %; Eosinophils # (auto) 0.05 K/uL (0-0.5); Eosinophils % (auto) 0.7 %; Immature Granulocytes # (auto) 0.02 K/uL (0.00-0.02); Immature Granulocytes % (auto) 0.3 %; Lymphocytes # (auto) 1.27 K/uL (1.2-3.4); Mean Platelet Volume 11.3 fL (7.4-10.4); Monocytes # (auto) 0.87 K/uL (0.11-0.59); Monocytes % (auto) 12.3 %; Neutrophils # (auto) 4.84 K/uL (1.4-6.5); Neutrophils % (auto) 68.4 %; Platelet Count 92 K/uL (130-400); Platelet Estimate Decreased (Normal)
[2021-01-29] MEDS ORDERED: INSULIN GLARGINE SOLOSTAR 100 UNITS/ML 3 ML PEN SC SCH ×2 (09:00→21:00)
[2021-01-29] MEDS: LABETALOL HCL 200 MG TAB PO SCH ×2 (10:08→20:59)
[2021-01-29] MEDS: CHLORTHALIDONE 25 MG TAB PO SCH (10:09)
[2021-01-29] MEDS: VENLAFAXINE HCL XR 150 MG CAPXR PO SCH (10:09)
[2021-01-29] MEDS: ASPIRIN 81 MG ECTAB PO SCH (10:10)
[2021-01-29] MEDS: buPROPion XL 150 MG TABCR PO SCH (10:11)
[2021-01-29] MEDS: amLODIPine BESYLATE 5 MG TAB PO SCH (10:11)
[2021-01-29] MEDS: PANTOprazole 40 MG TAB PO SCH (10:12)
[2021-01-29] MEDS: LOSARTAN POTASSIUM 50 MG TAB PO SCH (10:12)
[2021-01-29] MEDS: INSULIN ASPART 100 UNITS/ML 3 ML PEN SC SCH ×4 (10:15→21:19)
--- NOTE | 2021-01-29 10:15 | Anesthesiology Progress Note ---
Date of Service January 29, 2021 Anesthesia Post Procedure Vital Signs Vital Signs: Temp Pulse Pulse Pulse Resp BP Pulse Ox 01/29/21 08:14 37.3 C 74 17 146/70 H 95 01/29/21 03:39 37.2 C 60 20 129/67 93 01/28/21 22:00 37.5 C 20 93 01/28/21 21:59 67 161/73 H 01/28/21 19:51 37.1 C 71 20 134/65 92 01/28/21 15:35 63 18 145/71 H 93 01/28/21 14:14 58 L 18 125/63 100 01/28/21 13:06 65 18 115/61 95 01/28/21 12:32 36.7 C 51 L 18 108/60 96 01/28/21 12:12 36.6 C 56 L 18 119/60 92 01/28/21 11:35 36.6 C 54 L 17 98/53 L 95 01/28/21 11:25 49 L 20 90/45 L 95 01/28/21 11:15 49 L 16 93/52 L 94 01/28/21 11:05 52 L 18 86/42 L 95 01/28/21 10:59 36.2 C L 45 L 16 96/47 L 94 Pain Intensity Back: Pain Intensity: 8 Notes Mental Status: alert / awake / arousable and participated in evaluation Patient Amnestic to Procedure: Yes Nausea / Vomiting: adequately controlled Pain: adequately controlled Airway Patency, RR, SpO2: stable & adequate BP & HR: stable & adequate Hydration State: stable & adequate Anesthetic Complications: no major complications apparent and Pt Satisfied with anesthetic care
--- NOTE | 2021-01-29 10:34 | Orthopedic Progress Note ---
Date of Service January 29, 2021 Assessment & Plan (1) Lumbar spinal stenosis: Admission and Anticipated Discharge Date Admission Date: January 28, 2021 This time we will continue physical therapy monitor his RUDY operatively discharge home in the next few days. Subjective Back pain controlled leg symptoms markedly improved. Physical Exam Physical Exam: On exam he has good strength testing appears comfortable. Results & Data ([facility]) Vital Signs (Past 12 Hours) Vital Signs Temp Pulse Resp BP Pulse Ox 01/29/21 08:14 37.3 C 74 17 146/70 H 95 01/29/21 03:39 37.2 C 60 20 129/67 93
--- NOTE | 2021-01-29 12:21 | Pharmacy Report ---
Pharmacy Glycemic Short Note 2 - Date of Service January 29, 2021 - Glycemic Short BSG Results (Last 24 hours): 01/28/21 01/28/21 01/28/21 12:20 17:08 20:42 Glucose POC Glucose 160 H 163 H 131 H 01/29/21 01/29/21 06:01 08:13 Glucose 110 H POC Glucose 131 H OUTPATIENT ANTIDIABETIC REGIMEN: * Glimepiride 1 mg PO BIDM * Pioglitazone-metformin 15-850 mg PO BIDM * HbA1c: 6.4% (01/12/21) ASSESSMENT: 01/29/21 * BSGs reasonably well controlled yesterday following surgery, 160, 163, and 131 mg/dL * Patient received 43 units of insulin yesterday (20 units of basal and 23 units of prandial/correctional) * Fasting BSG of 131 mg/dL this morning * Lunch BSG of 75 mg/dL - will loosen Novolog parameters today * Dexamethasone 6 mg IV daily to start tomorrow - will need to reassess basal at that time + likely tighten Novolog parameters 01/28/21: * LW is a 75 year old male POD #0 s/p L3-S1 decompression/fusion * No steroids administered perioperatively * Fasting BSG of 151 mg/dL, 200 mg/dL postoperatively * Patient has excellent HbA1c, but is controlled with three oral antidiabetic medications * Will give 0.2 unit/kg dose of Lantus x 1 and use fairly aggressive Novolog to start PLAN FOR INPATIENT GLYCEMIC CONTROL: * Hold outpatient oral diabetes medications * Basal insulin - change to BID * Lantus 10 units SC this morning * Lantus 0-10 units SC HS based on BSG (see EHR for details) * Bolus insulin - loosen * NovoLog per scale ACHS or Q6hrs while NPO * Goal Range: Low 110 mg/dL - High 140 mg/dL * Correction Factor: 30 mg/dL/unit * Nutritional / Prandial insulin per carb ratio of 1 unit per 10 grams CHO consumed PLAN FOR DISCHARGE: * HbA1c of 6.4% suggests excellent outpatient glycemic control * Continue current regimen
--- NOTE | 2021-01-29 13:05 | Orthopedic Progress Note ---
Date of Service January 29, 2021 Assessment & Plan (1) Lumbar spinal stenosis: Admission and Anticipated Discharge Date Admission Date: January 28, 2021 We will initiate physical therapy today monitor his RUDY operatively discharge home in the next few days. Subjective Back pain is controlled leg pain markedly improved Physical Exam Physical Exam: Patient is good strength testing is comfortable. Results & Data ([facility]) Vital Signs (Past 12 Hours) Vital Signs Temp Pulse Resp BP Pulse Ox 01/29/21 12:20 37.2 C 56 L 18 134/63 90 01/29/21 08:14 37.3 C 74 17 146/70 H 95 01/29/21 03:39 37.2 C 60 20 129/67 93
--- NOTE | 2021-01-29 15:47 | Hospitalist Progress Note ---
Date of Service January 29, 2021 Assessment & Plan (1) Lumbar spinal stenosis: S/p laminectomy/fasciotomy and stabilization from L3-S1 with with Dr. Bedoya on 01/28. - Doing well post-op - Expected acute blood loss anemia -> Will give IV iron x 3 doses. Discussed with patient. - Post-operative care per surgery - DVT ppx per surgery (2) Obstructive sleep apnea: Uses CPAP at home. - Utilize home CPAP device which is in his room. 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 - Hold home meds - Glycemic pharmacy following -> Long-acting & sliding scale insulin per their team (4) Hypertension: BP today is 115/60. - Continue home amlodipine, chlorthalidone, labetalol, & losartan (5) Retention of urine: Patient self-caths twice a day at home. - Continue while inpatient. (6) DVT prophylaxis: Aspirin 81 mg PO daily SCDs - Per primary team Admission and Anticipated Discharge Date Admission Date: January 28, 2021 Subjective Doing well today. Pain is overall controlled with pain meds. Reports no fevers/chills, chest pain, shortness of breath, abdominal pain, nausea, or vomiting. Physical Exam Constitutional: WD/WN, vitals as above Eyes: EOM intact bilaterally; no conjunctival abnormality ENMT: external ear and nose normal, oropharynx normal Neck: trachea midline, no thyromegaly normal visual inspection Respiratory: normal respiratory effort, lungs clear to auscultation no respiratory distress Cardiovascular: RRR, no murmur, no edema Gastrointestinal (Abdomen): Inspection/Auscultation: abdomen normal to inspection; abdomen not distended Musculoskeletal: no cyanosis or clubbing, extremities motor strength 5/5 Spine: + lumbar spine abnormal to inspection (Surgical drain present.) Skin: no rashes, warm and dry Neurologic: moves all extremities and awake Psychiatric: Orientation: alert, oriented to person and cooperative Results & Data Results & Data ([facility]) Vital Signs (Past 12 Hours) Vital Signs Temp Pulse Resp BP Pulse Ox 01/29/21 15:00 36.9 C 56 L 16 117/60 94 01/29/21 12:20 37.2 C 56 L 18 134/63 90 01/29/21 08:14 37.3 C 74 17 146/70 H 95 01/29/21 03:39 37.2 C 60 20 129/67 93 PG Care Time/CCT Total # of Minutes Spent Total Time Spent with Patient: Total time spent is greater than 50% in coordination of care (as documented) at patient's floor/unit and/or counseling patient: Coding Level of Care Code 66681 Subseq Hosp Care Lvl 2 Diagnoses Lumbar spinal stenosis M48.061 Obstructive sleep apnea G47.33 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
[2021-01-29] MEDS: IRON SUCROSE 300 MG in SODIUM CHLORIDE 0.9% 250 ML IV SCH (17:08)
[2021-01-29] MEDS: DOCUSATE SODIUM/SENNA 50/8.6MG TAB PO SCH (20:57)
[2021-01-29] MEDS: TRAVOPROST Z 0.004% OPH SOLN 2.5 ML BTL OP SCH (20:57)
[2021-01-30] MEDS: POLYETHYLENE (MIRALAX) 17 GM PACK PO SCH ×3 (05:51→17:36)
[2021-01-30] MEDS: oxyCODONE HCL IR 5 MG TAB (IMMEDIATE RELEASE) PO PRN ×2 (05:52→14:04)
[2021-01-30] MEDS: dexAMETHasone 8 MG in SYRINGE 0 ML IV SCH (08:13)
[2021-01-30] MEDS: PANTOprazole 40 MG TAB PO SCH (08:13)
[2021-01-30] MEDS: ASPIRIN 81 MG ECTAB PO SCH (08:13)
[2021-01-30] MEDS: buPROPion XL 150 MG TABCR PO SCH (08:14)
[2021-01-30] MEDS: VENLAFAXINE HCL XR 150 MG CAPXR PO SCH (08:14)
[2021-01-30] MEDS: amLODIPine BESYLATE 5 MG TAB PO SCH (08:14)
[2021-01-30] MEDS: LABETALOL HCL 200 MG TAB PO SCH ×3 (08:15→21:33)
[2021-01-30] MEDS: LOSARTAN POTASSIUM 50 MG TAB PO SCH (08:15)
[2021-01-30] MEDS: CHLORTHALIDONE 25 MG TAB PO SCH (08:16)
--- NOTE | 2021-01-30 08:24 | Orthopedic Progress Note ---
Date of Service January 30, 2021 Assessment & Plan (1) Lumbar spinal stenosis: Patient is postoperative day 2 posterior lumbar decompression and fusion L3-S1. He is doing great. We will DC Weston catheter today. Maintain RUDY drain. Continue physical therapy. Continue with aggressive bowel regimen. DVT prophylaxis is is in the form of teds and SCDs. Anticipate discharge home tomorrow. Admission and Anticipated Discharge Date Admission Date: January 28, 2021 Supervising Physician Co-Signing Physician Notes Dr. Gilbert Bedoya Subjective Patient is postoperative day 2 lumbar decompression and fusion L3-S1. He is doing great. Pain is controlled. Passing flatus but no bowel movement. RUDY drain output last shift was 60 cc. Yesterday in physical therapy ambling roughly 400 feet. Still has Weston intact. Does self catheterize at home. Review of Systems Review of Systems: All systems reviewed & are unremarkable except as noted in HPI & below Physical Exam Physical Exam: Alert and oriented x3. No acute distress. Lumbar dressing is clean dry and intact Calves soft nontender bilaterally. Motor testing is 5 5 bilateral EHL, dorsiflexion, plantarflexion, quadriceps, hamstrings Constitutional: WD/WN, vitals as above Eyes: normal visual rivera by confrontation ENMT: external ear and nose normal, oropharynx normal Neck: normal visual inspection Respiratory: normal respiratory effort Cardiovascular: Extremities: normal capillary refill Chest (Breasts): Chest: normal inspection of chest Gastrointestinal (Abdomen): Inspection/Auscultation: abdomen normal to inspection Musculoskeletal: Extremities: extremities normal to inspection and strength 5/5 throughout Skin: no rashes, warm and dry Neurologic: normal touch/pain/proprioception and moves all extremities Psychiatric: A+Ox3, euthymic affect Results & Data ([facility]) Vital Signs (Past 12 Hours) Vital Signs Temp Pulse Resp BP Pulse Ox 01/30/21 06:51 37.3 C 62 16 93/52 L 92 01/29/21 23:06 37.5 C 79 18 120/66 93 01/29/21 21:00 67 108/64
[2021-01-30 08:30] LABS: BUN Creatinine Ratio 19.1 (10-20); Calcium 8.1 mg/dl (8.5-10.1); Creatinine Clr Calc Pharmacy 70.2 ml/min; Est GFR (African American) 75.4; Est GFR (Non-African American) 65.1; Magnesium 1.7 mg/dl (1.8-2.4); Potassium 3.6 mmol/L (3.5-5.1)
[2021-01-30 08:33] LABS: Hematocrit (blood only) 32.7 % (42-52); Hemoglobin 10.9 g/dL (14.0-18.0); Mean Corpuscular Hemoglobin 29.1 pg (25-34); Mean Corpuscular Hgb Conc 33.3 g/dL (32-36); Mean Corpuscular Volume 87.4 fL (80-100); Mean Platelet Volume 12.3 fL (7.4-10.4); Platelet Count 104 K/uL (130-400); RDW Coefficient of Variation 15.4 % (11.5-14.5); RDW Standard Deviation 49.5 fL (36.4-46.3); Red Blood Count 3.74 M/uL (4.7-6.1); White Blood Count 9.63 K/uL (4.8-10.8)
[2021-01-30] MEDS: IRON SUCROSE 300 MG in SODIUM CHLORIDE 0.9% 250 ML IV SCH (08:44)
[2021-01-30] MEDS: INSULIN ASPART 100 UNITS/ML 3 ML PEN SC SCH ×4 (08:46→21:31)
[2021-01-30] MEDS: INSULIN GLARGINE SOLOSTAR 100 UNITS/ML 3 ML PEN SC SCH (08:48)
--- NOTE | 2021-01-30 11:08 | Pharmacy Report ---
Pharmacy Glycemic Short Note 2 - Date of Service January 30, 2021 - Glycemic Short BSG Results (Last 24 hours): 01/29/21 01/29/21 01/29/21 12:20 17:10 20:45 Glucose POC Glucose 75 131 H 96 01/30/21 06:55 Glucose 163 H POC Glucose OUTPATIENT ANTIDIABETIC REGIMEN: * Glimepiride 1 mg PO BIDM * Pioglitazone-metformin 15-850 mg PO BIDM * HbA1c: 6.4% (01/12/21) ASSESSMENT: 01/30: * Patient received total of 24 units of insulin yesterday: 10 units of basal + 14 bolus. * Fasting BSG = 163 mg/dl today. Also, Dexamethasone 8 mg IV daily ordered to start today morning. * To prevent steroid induced hyperglycemia, increased Lantus dose this AM to 28 units (0.3 units/kg) x1. * Lantus dose at HS ordered based on BSG scale. * Also, tightened Novolog parameters to wt based stress of 3 for steroids. 01/29/21 * BSGs reasonably well controlled yesterday following surgery, 160, 163, and 131 mg/dL * Patient received 43 units of insulin yesterday (20 units of basal and 23 units of prandial/correctional) * Fasting BSG of 131 mg/dL this morning * Lunch BSG of 75 mg/dL - will loosen Novolog parameters today * Dexamethasone 6 mg IV daily to start tomorrow - will need to reassess basal at that time + likely tighten Novolog parameters 01/28/21: * LW is a 75 year old male POD #0 s/p L3-S1 decompression/fusion * No steroids administered perioperatively * Fasting BSG of 151 mg/dL, 200 mg/dL postoperatively * Patient has excellent HbA1c, but is controlled with three oral antidiabetic medications * Will give 0.2 unit/kg dose of Lantus x 1 and use fairly aggressive Novolog to start PLAN FOR INPATIENT GLYCEMIC CONTROL: * Hold outpatient oral diabetes medications * Basal insulin - increased * Lantus 28 units SC this morning * Lantus 0-10 units SC HS based on BSG scale. * Bolus insulin - tightened CF/CR * NovoLog per scale ACHS or Q6hrs while NPO * Goal Range: Low 110 mg/dL - High 140 mg/dL * Correction Factor: 15 mg/dL/unit * Nutritional / Prandial insulin per carb ratio of 1 unit per 6 grams CHO consumed PLAN FOR DISCHARGE: * HbA1c of 6.4% suggests excellent outpatient glycemic control * Continue current regimen
[2021-01-30] MEDS: MAGNESIUM SULFATE / D5W 1 GM/100 ML BAG IV SCH ×2 (14:02→15:55)
--- NOTE | 2021-01-30 15:00 | Hospitalist Progress Note ---
Date of Service January 30, 2021 Assessment & Plan (1) Lumbar spinal stenosis: S/p laminectomy/fasciotomy and stabilization from L3-S1 with with Dr. Bedoya on 01/28. - Doing well post-op - Expected acute blood loss anemia -> Will give IV iron x 3 doses. Discussed with patient. - Post-operative care per surgery - DVT ppx per surgery (2) Obstructive sleep apnea: Uses CPAP at home. - Utilize home CPAP device which is in his room. 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 - Hold home meds - Glycemic pharmacy following -> Long-acting & sliding scale insulin per their team (4) Hypertension: BP today is 115/60. - Continue home amlodipine, chlorthalidone, labetalol, & losartan (5) Retention of urine: Patient self-caths twice a day at home. - Continue while inpatient. (6) DVT prophylaxis: Aspirin 81 mg PO daily SCDs - Per primary team Given medical stability, Hospital Medicine team will sign off. Please re-consult with any questions or concerns. Thank you for letting us assist in the care of this patient! Admission and Anticipated Discharge Date Admission Date: January 28, 2021 Subjective Doing well today. Pain is overall controlled with pain meds. Has been up and walking around. Reports no fevers/chills, chest pain, shortness of breath, abdominal pain, nausea, or vomiting. Physical Exam Constitutional: WD/WN, vitals as above Eyes: EOM intact bilaterally; no conjunctival abnormality ENMT: external ear and nose normal, oropharynx normal Neck: trachea midline, no thyromegaly normal visual inspection Respiratory: normal respiratory effort, lungs clear to auscultation no respiratory distress Cardiovascular: RRR, no murmur, no edema Gastrointestinal (Abdomen): Inspection/Auscultation: abdomen normal to inspection; abdomen not distended Musculoskeletal: no cyanosis or clubbing, extremities motor strength 5/5 Spine: + lumbar spine abnormal to inspection (Surgical drain present.) Skin: no rashes, warm and dry Neurologic: moves all extremities and awake Psychiatric: Orientation: alert, oriented to person and cooperative Results & Data Results & Data ([facility]) Vital Signs (Past 12 Hours) Vital Signs Temp Pulse Resp BP BP Pulse Ox 01/30/21 14:56 36.7 C 65 18 114/63 96 04/03/21 06:51 37.3 C 62 16 93/52 L 92 PG Care Time/CCT Total # of Minutes Spent Total Time Spent with Patient: Total time spent is greater than 50% in coordination of care (as documented) at patient's floor/unit and/or counseling patient: Coding Level of Care Code 44882 Subseq Hosp Care Lvl 2 Diagnoses Lumbar spinal stenosis M48.061 Obstructive sleep apnea G47.33 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
[2021-01-30] MEDS ORDERED: INSULIN GLARGINE SOLOSTAR 100 UNITS/ML 3 ML PEN SC SCH (21:00)
[2021-01-30] MEDS: TRAVOPROST Z 0.004% OPH SOLN 2.5 ML BTL OP SCH (21:32)
[2021-01-30] MEDS: DOCUSATE SODIUM/SENNA 50/8.6MG TAB PO SCH (21:33)
[2021-01-31] MEDS: POLYETHYLENE (MIRALAX) 17 GM PACK PO SCH ×2 (00:59→06:47)
[2021-01-31] MEDS: oxyCODONE HCL IR 5 MG TAB (IMMEDIATE RELEASE) PO PRN (07:32)
[2021-01-31] MEDS: buPROPion XL 150 MG TABCR PO SCH (08:34)
[2021-01-31] MEDS: dexAMETHasone 8 MG in SYRINGE 0 ML IV SCH (08:34)
[2021-01-31] MEDS: LOSARTAN POTASSIUM 50 MG TAB PO SCH (08:34)
[2021-01-31] MEDS: LABETALOL HCL 200 MG TAB PO SCH (08:36)
[2021-01-31] MEDS: CHLORTHALIDONE 25 MG TAB PO SCH (08:36)
[2021-01-31] MEDS: amLODIPine BESYLATE 5 MG TAB PO SCH (08:36)
[2021-01-31] MEDS: VENLAFAXINE HCL XR 150 MG CAPXR PO SCH (08:37)
[2021-01-31] MEDS: ASPIRIN 81 MG ECTAB PO SCH (08:37)
[2021-01-31] MEDS: PANTOprazole 40 MG TAB PO SCH (08:37)
[2021-01-31] MEDS: INSULIN ASPART 100 UNITS/ML 3 ML PEN SC SCH (08:47)
[2021-01-31] MEDS: INSULIN GLARGINE SOLOSTAR 100 UNITS/ML 3 ML PEN SC SCH (08:48)
[2021-01-31] MEDS: IRON SUCROSE 300 MG in SODIUM CHLORIDE 0.9% 250 ML IV SCH (08:57)
--- NOTE | 2021-01-31 09:58 | Discharge Summary ---
Date of Service January 31, 2021 Admission HPI Per Admitting Provider This is a 75-year-old male who presents with chronic persistent back and leg pain. After failing course of nonoperative care is here for surgical invention. Admission Exam (Per Admitting) Constitutional WD/WN, vitals as above Eyes normal visual rivera by confrontation ENMT external ear and nose normal, oropharynx normal Neck normal visual inspection Respiratory normal respiratory effort Cardiovascular Extremities: normal capillary refill Chest (Breasts) Chest: normal inspection of chest Gastrointestinal (Abdomen) Inspection/Auscultation: abdomen normal to inspection Musculoskeletal Extremities: extremities normal to inspection and strength 5/5 throughout Skin no rashes, warm and dry Neurologic normal touch/pain/proprioception and moves all extremities Psychiatric A+Ox3, euthymic affect Discharge Data Consultations 01/28/21 12:12 Consult Hospitalist Routine Procedures Performed Operation Date: 01/28/21 08:15 Actual Procedures p L3-S1 Decompression Fusion with Insertion of Interbodies at L4-L5 and L5-S1, Application of Bone Morphogenetic Protein, Spinal Cord Monitoring(Not Applicable) - Gilbert Bedoya DO Hospital Course (1) Lumbar spinal stenosis: Pt had an uneventful hospital course. He was discharged home on POD #3. Pain was controlled. He made progress daily in PT. Lab values stable. Discharge Instructions ACTIVITY RECOMMENDATIONS: SELF CARE INSTRUCTIONS AFTER THORACIC/LUMBAR FUSIONS 1. You may walk to your tolerance. It is good exercise for your legs and back. Expect some back and intermittent leg aches and pains. 2. You may perform "counter-top" level activities (make a sandwich, adama with a project, etc.). 3. No bending or lifting of more than 10 pounds or back twisting of any nature (roll like a log when turning in bed). 4. You may ride in a car for 20-30 minutes at a time. No driving until after your first visit with your doctor. 5. Frequent changes of position and restricting sitting to 30 minutes at a time will help limit the amount of back spasms and stiffness you may experience. 6. You may discontinue the use of ambulatory aids (cane, crutches, etc.) once your strength and confidence allow. 7. You may printed circuit board panels trimmer the shower and let water strike your incision when you arrive home at least once daily. Do not take a tub bath, sit in a hot tub or go into a swimming pool until after your first recheck in the office. SPECIAL CARE INSTRUCTIONS: VERY IMPORTANT TO READ AND REVIEW A. Your surgical incision has been closed with a cosmetic suture under the skin that will dissolve in about 6 weeks. In 14 days, you can use a pair of clean scissors and cut the suture that is left outside of the skin at the ends of your incision. 1. The small skin tapes can be removed 7 days after surgery if they have not fallen off by that point. 2. You may keep the wound open to air as much as possible to promote healing after post-op day number 5 unless told otherwise by your doctor. 3. If you think the wound looks like it is becoming infected (redness or worsening drainage) and/or you are experiencing fever, chill or worsening back pain and muscle spasms, contact the office so that we may evaluate you as soon as possible. B. Complications are uncommon, but please contact us if you have any signs or symptoms of: 1. wound infection (fever higher than 102.5 degrees F, redness, separation of wound, drainage, or increasing pain from the incision) 2. blood clots in legs (pain, swelling, redness and warmth in legs) 3. urinary tract infection (fever higher than 102.5 degrees F, burning upon urination or increased frequency of urination) 4. nerve problems (inability to walk on your toes or heels, numbness, loss of bowel or bladder control) 5. any other symptoms that concern you C. Please call the office at if you have any concerns or questions about your operation or recovery. D. No smoking! Smoking drastically decreases the chance of a solid fusion. E. Do not take any anti-inflammatory medications (Indocin, Advil, Motrin, Aspirin, Naprosyn, etc.) as these may inhibit the chance of a solid fusion. Tylenol is okay to take for pain. MANAGING PAIN AFTER SPINAL SURGERY 1. Narcotic medication is intended for short-term use and will be provided for surgical pain. Surgical pain usually lasts for a period of 4-6 weeks. Narcotic medication includes Percocet, Vicodin, Darvocet, Tylenol #3 or Lortab. 2. Longer-term pain is more appropriately treated with non-narcotic medication such as Tylenol ES. 3. Muscle spasm is not appropriately treated with narcotics. Muscle relaxers such as Soma, Flexeril or Skelaxin can be used along with Tylenol ES. 4. Remember that we all live with some "aches and pains". This is not unusual or uncommon after an injury or as we get older. a. Back pain is expected and may include muscle spasms for 4 to 6 weeks after surgery. The pain should gradually improve. If the pain worsens for no apparent reason, please contact the office. b. Intermittent leg pain may also be experienced and should not be concerned about unless it worsens for no apparent reason. If so, please contact the office. 5. We will provide appropriate medication within the normal guidelines of their prescribed use. We will also be very cautious and aware of potential abuse and extended duration of patients' medication needs. a. Pain medications are for your comfort and to assist with sleep and rest so that the tissue can heal. They are not provided in order to return to normal activity and should not be used through the day. To do so or worsening pain at night can result from ongoing tissue damage and develop ment of tolerance to the prescribed medicine. 6. Please allow 2-3 days to process refills. Prescriptions will not be mailed but must be picked up at the office. FOLLOW UP VISIT: Keep your scheduled follow-up appointment. Any questions, please call the office at . Supervising Physician Co-Signing Physician Notes Dr. Gilbert Bedoya
== END 2021-01-31 11:17 | disposition home or self-care (01) | DRG 454 ==
LOC: ASU 06:55 → 3E 11:14

== ENCOUNTER 2021-02-22 10:20 | Inpatient (IN) ==
--- NOTE | 2021-02-22 11:29 | Emergency Department Note ---
History of Present Illness General Chief complaint: Infection Stated complaint: BACK SURG SITE NOW INFECTED Time Seen by Provider: 02/22/21 11:13 History of Present Illness Maximum Pain Intensity: 8 This is a 75-year-old male that presents to the emergency department via private vehicle with complaints of "back surgery site noninfected". The patient notes that January 282020 he underwent low back surgery by Dr. Bedoya. He was doing well in the postoperative setting but seemed to worsen yesterday in regard to pain. He presented to [place] where he was evaluated and had an MRI of the L- spine. Per patient he notes an infection was seen. He had a follow-up today with Renny Hickey PA-C and was referred here for eval by Dr. Bedoya. Patient does note low back pain at this time but states that it is overall controlled. Pain currently 8/10. He denies any lower extremity weakness, bowel or bladder incontinence, numbness or tingling in genital region. He denies any fevers, chills, nausea, vomiting, chest pain or shortness of breath. He notes that the back pain does extend into the legs as the legs now feel tight. No history of clot. He denies anticoagulant use. He does self cath secondary to distended bladder and has a history of diabetes and hypertension. He denies any anticoagulant use. Last food/drink was 6 AM today and was crackers/coffee. Home Medications Medication Instructions Recorded Confirmed Type aspirin 81 mg tablet,delayed 81 mg PO DAILY #90 tab 06/12/19 02/22/21 Rx release blood sugar diagnostic #200 ea 06/12/19 02/22/21 Rx hydrocodone 5 mg-acetaminophen 325 1 tab PO QID PRN #120 tab 06/12/19 02/22/21 Rx mg tablet travoprost 0.004 % eye drops 1 drops OP QPM #5 ml 06/12/19 02/22/21 Rx CPAP Machine #1 ea 08/22/19 02/22/21 Rx albuterol sulfate 90 mcg/actuation 2 puffs INHALATION Q4H PRN #1 ea 09/30/19 02/22/21 Rx breath activated powder inhaler glimepiride 1 mg tablet 1 mg PO BID #60 tab 07/30/20 02/22/21 Rx mupirocin 2 % topical ointment 1 applic TOPICAL BID #15 g 08/13/20 02/22/21 Rx valacyclovir 1 gram tablet 2,000 mg PO Q12H 1 Days #20 tab 08/13/20 02/22/21 Rx MDD cold sores lansoprazole 30 mg capsule,delayed 30 mg PO DAILY #30 cap 10/02/20 02/22/21 Rx release pioglitazone 15 mg-metformin 850 1 tab PO BID #180 tab 11/19/20 02/22/21 Rx mg tablet amlodipine 10 mg tablet 10 mg PO DAILY #30 tab 12/01/20 02/22/21 Rx chlorthalidone 25 mg tablet 12.5 mg PO DAILY #45 tab 12/01/20 02/22/21 Rx bupropion HCl 150 mg 24 hr tablet, 450 mg PO QAM #90 tab 01/25/21 02/22/21 Rx extended release losartan 100 mg tablet 100 mg PO DAILY #30 tab 01/25/21 02/22/21 Rx venlafaxine 150 mg 300 mg PO DAILY #60 cap 01/25/21 02/22/21 Rx capsule,extended release 24 hr oxycodone 5 mg PO Q6H PRN #30 tab 01/29/21 02/22/21 Rx tramadol 50 mg PO Q6H PRN #30 tab 01/29/21 02/22/21 Rx labetalol 200 mg tablet 200 mg PO BID #180 tab 02/15/21 02/22/21 Rx levofloxacin 500 mg tablet 500 mg PO DAILY 7 Days #7 tab 02/19/21 02/22/21 Rx Allergies Allergy/AdvReac Type Severity Reaction Status Date / Time simvastatin Allergy Intermediate ? abnormal Verified 02/22/21 10:57 labs, pt unsure exactly cephalexin Allergy Mild upset Verified 02/22/21 10:57 stomach hydrochlorothiazide Allergy Mild UPSET Verified 02/22/21 10:57 STOMACH sulfamethoxazole Allergy Mild UPSET Verified 02/22/21 10:57 STOMACH trimethoprim Allergy Mild UPSET Verified 02/22/21 10:57 STOMACH Bactrim Allergy Unknown UPSET Verified 08/26/15 09:51 STOMACH dicloxacillin AdvReac Mild NAUSEA/VOMI Verified 02/22/21 10:57 TING Penicillins AdvReac Mild NAUSEA/VOMI Verified 02/22/21 10:57 TING Past Med/Surg History Medical History Anemia Back pain, chronic Diabetes mellitus, type 2 Elevated prostate specific antigen (PSA) Fatty liver GERD (gastroesophageal reflux disease) Hyperlipidemia Hypertension Lumbar spinal stenosis Lumbar spinal stenosis Obstructive sleep apnea USES CPAP DEVICE DILIGENTLY Osteoarthritis Recurrent UTI Retention of urine PT STATES SELF CATH BID Urinary retention Surgical History H/O knee surgery LEFT History of carpal tunnel release RT History of cataract surgery RT/LEFT History of colonoscopy History of herniorrhaphy RT INGUINAL History of tooth extraction Hx of tonsillectomy S/P spinal surgery 01/28/21 Dr. Gilbert Bedoya- #1 lumbar decompression bilateral medial facetectomies and foraminotomies L3-4 L4-5 and L5-S1. #2 posterior spinal fusion L3-4 L4-5 L5-S1. #3 patient posterior segmental instrumentation L3- S1. #4 interbody fusion L4-5 and L5-S1. #5 placement peek cage 14 x 26 mm at L4-5 and 14 x 26 mm at L5-S1. #6 placement locally harvested morselized autograft in the posterior lateral gutters. #7 placement infuse collagen sponge, master graft in the posterior lateral gutters and I factor in the interbody space. Family History Brother Family history of diabetes mellitus Other Diabetes Heart disease Hypertension Lung cancer Nephrolithiasis No family history of adverse response to anesthesia Denies family history of Prostate cancer Social History Smoking Status: Never smoker Second Hand Exposure: No; Hx Alcohol Use: No Hx Substance Use: No Preferred Language: Maltese Communication Ability: Effective Visual Impairment: No Limitations Hearing Ability: Normal Record Center Coordinator Required: No Beliefs That Will Affect Care: None marital status: Current Living Situation: Spouse current occupational status: retired Feels Safe at Home: Yes Childhood Exposure to Second-Hand Smoke: No caffeine: Yes Dental Care, Regularly: No Physical Activity Frequency: 1-2 Times per Week 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 Seatbelt Use: always Sunscreen Use: Yes Assistive Devices: Walker Review of Systems A total of 10 systems reviewed and were otherwise negative Physical Exam Vital Signs Vital Signs - 24 hr 02/22/21 10:28 Temperature 36.3 C L Temperature Source Temporal Artery Scan Pulse Rate 69 Pulse Rhythm Regular Pulse Strength Normal Respiratory Rate 20 Respiratory Effort / Characteristics Non-Labored Spontaneous Respiratory Depth Normal Respiratory Pattern Regular Blood Pressure 124/65 Blood Pressure Mean 84 Blood Pressure Position Sitting Pulse Oximetry 95 Oxygen Delivery Method Room Air Sepsis Recent Fever Within 48 Hours No Sepsis New/Unexplained Change in Mental Status No Sepsis Action Taken by Nursing No Action Required VITAL SIGNS - Vital signs and nursing notes were reviewed. Stable and afebrile. GENERAL -75-year-old male appearing his stated age who is in no acute distress. Communicates well with provider and answers questions appropriately. SKIN - Without rashes. No meningeal or petechial rash. HEAD - NC/AT. EYES - PERRL with EOMI bilaterally. Sclera anicteric. EARS - No deformities of external structures noted on gross examination bilaterally. NOSE - Midline and without cyanosis. No epistaxis or purulent drainage noted. MOUTH/OROPHARYNX - Without perioral cyanosis. Buccal mucosa pink and moist and without leukoplakia. Tongue midline with equal elevation of palate bilaterally. No tonsillar hypertrophy, erythema, or exudates noted. Good dentition noted. NECK - Neck with FROM. No nuchal rigidity. LUNGS - Chest wall symmetric without accessory muscle use, intercostals retractions, or central cyanosis. Normal vesicular breath sounds CTA B/L. No wheezes, rales, or rhonchi appreciated. CARDIAC - RRR with S1/S2. No murmur, rubs, or gallops appreciated. ABDOMEN - Abdominal contour normal without pulsations or visible masses. BS normoactive all four quadrants. No tenderness, palpable masses, hepatosplenomegaly, or ascites noted. EXTREMITIES - No clubbing or peripheral cyanosis. No pretibial edema present. +5/5 strength noted in UE/LE bilaterally. NEUROLOGIC - Cranial nerves II through XII grossly intact. Sensory intact to light touch throughout. PSYCH - A&Ox3 and cooperates fully with examiner. Pt is very pleasant and interacts well with examiner. Course Administered Medications Lactated Ringer's (Lr) 1,000 mls @ 75 mls/hr IV .[id number] RICCI Stop: 03/24/21 12:14 Last Admin: 02/22/21 13:35 Dose: 75 mls/hr Documented by: [id number] Oxycodone HCl (Oxycodone Hcl Ir 5 Mg Tab (Immediate Release)) 5 - 10 mg PO Q4H PRN PRN Reason: mod to severe pain Stop: 03/08/21 12:05 Last Admin: 02/22/21 13:41 Dose: 5 mg Documented by: [id number] Medical Decision Making Laboratory Data Result diagrams: 02/22/21 11:48 02/22/21 11:48 Lab Results 02/22/21 02/22/21 02/22/21 Range/Units 11:48 11:48 11:48 WBC 5.52 (4.8-10.8) K/uL RBC 3.89 L (4.7-6.1) M/uL Hgb 11.7 L (14.0-18.0) g/dL Hct 34.6 L (42-52) % MCV 88.9 (80-100) fL MCH 30.1 (25-34) pg MCHC 33.8 (32-36) g/dL RDW Std Deviation 54.4 H (36.4-46.3) fL RDW Coeff of Hector 16.6 H (11.5-14.5) % Plt Count 183 (130-400) K/uL MPV 10.0 (7.4-10.4) fL Immature Gran % (Auto) 0.2 % Neut % (Auto) 72.3 % Lymph % (Auto) 19.7 % Eaton % (Auto) 6.3 % Eos % (Auto) 1.3 % Baso % (Auto) 0.2 % Neut # (Auto) 3.99 (1.4-6.5) K/uL Lymph # (Auto) 1.09 L (1.2-3.4) K/uL Eaton # (Auto) 0.35 (0.11-0.59) K/uL Eos # (Auto) 0.07 (0-0.5) K/uL Baso # (Auto) 0.01 (0-0.2) K/uL Immature Gran # (Auto) 0.01 (0.00-0.02) K/uL ESR 43 H (0-20) mm/hr PT (9.0-12.0) Seconds INR (0.9-1.1) APTT (21.0-31.0) Seconds PTT Ratio Sodium (136-145) mmol/L Potassium (3.5-5.1) mmol/L Chloride (98-107) mmol/L Carbon Dioxide (21-32) mmol/L Anion Gap (3-11) BUN (7-18) mg/dl Creatinine (0.6-1.4) mg/dl Est Cr Clr Drug Dosing ml/min Est GFR ( Amer) Est GFR (Non-Af Amer) BUN/Creatinine Ratio (10-20) Glucose (70-99) mg/dl Lactate 1.1 (0.4-2.0) mmol/L Calcium (8.5-10.1) mg/dl Magnesium (1.8-2.4) mg/dl Total Bilirubin (0.2-1) mg/dl AST (15-37) U/L ALT (12-78) U/L Alkaline Phosphatase (45-117) U/L C-Reactive Protein (0-0.29) mg/dl Total Protein (6.4-8.2) gm/dl Albumin (3.4-5.0) gm/dl Globulin (2.5-4.0) gm/dl Albumin/Globulin Ratio (0.9-2) Procalcitonin (0-0.5) ng/ml 02/22/21 02/22/21 02/22/21 Range/Units 11:48 11:48 11:48 WBC (4.8-10.8) K/uL RBC (4.7-6.1) M/uL Hgb (14.0-18.0) g/dL Hct (42-52) % MCV (80-100) fL MCH (25-34) pg MCHC (32-36) g/dL RDW Std Deviation (36.4-46.3) fL RDW Coeff of Hector (11.5-14.5) % Plt Count (130-400) K/uL MPV (7.4-10.4) fL Immature Gran % (Auto) % Neut % (Auto) % Lymph % (Auto) % Eaton % (Auto) % Eos % (Auto) % Baso % (Auto) % Neut # (Auto) (1.4-6.5) K/uL Lymph # (Auto) (1.2-3.4) K/uL Eaton # (Auto) (0.11-0.59) K/uL Eos # (Auto) (0-0.5) K/uL Baso # (Auto) (0-0.2) K/uL Immature Gran # (Auto) (0.00-0.02) K/uL ESR (0-20) mm/hr PT 11.4 (9.0-12.0) Seconds INR 1.1 (0.9-1.1) APTT 25.3 (21.0-31.0) Seconds PTT Ratio 1.0 Sodium 140 (136-145) mmol/L Potassium 4.3 (3.5-5.1) mmol/L Chloride 108 H (98-107) mmol/L Carbon Dioxide 23 (21-32) mmol/L Anion Gap 9.0 (3-11) BUN 33 H (7-18) mg/dl Creatinine 1.42 H (0.6-1.4) mg/dl Est Cr Clr Drug Dosing 50.1 ml/min Est GFR ( Amer) 56.0 Est GFR (Non-Af Amer) 48.3 BUN/Creatinine Ratio 23.0 H (10-20) Glucose 102 H (70-99) mg/dl Lactate (0.4-2.0) mmol/L Calcium 8.9 (8.5-10.1) mg/dl Magnesium 1.9 (1.8-2.4) mg/dl Total Bilirubin 0.5 (0.2-1) mg/dl AST 23 (15-37) U/L ALT 22 (12-78) U/L Alkaline Phosphatase 166 H (45-117) U/L C-Reactive Protein 1.04 H (0-0.29) mg/dl Total Protein 7.4 (6.4-8.2) gm/dl Albumin 3.5 (3.4-5.0) gm/dl Globulin 3.9 (2.5-4.0) gm/dl Albumin/Globulin Ratio 0.9 (0.9-2) Procalcitonin 0.05 (0-0.5) ng/ml MDM Narrative Patient was seen and evaluated as above in room A3. Review was performed of nursing notes and vital signs. I did review pertinent previous visits and jennifer ent history. After obtaining a thorough history and physical examination the above work up was performed. Patient presents to us today referred by spine office. Patient recent underwent surgery by Dr. Bedoya of the L-spine. Patient was doing well in the postoperative setting from January 28, day of surgery until yesterday. He noted worsening low back pain and tightness in the lower extremity prompting arrival to [place]. He was evaluated. MRI of the L-spine was performed with and without contrast. They do see "new L2-S1 posterior epidural fluid collections compared with October 2020 result in new L2-L3, L3 vertebral level, L4 vertebral level, L5 vertebral level and stable L3-L4, L4-L5, and L5-S1 severe spinal canal stenosis with cauda equina compression. Diagnostic considerations for fluid collection include epidural hematoma, epidural abscess/phlegmon, or combination of these entities. Spinal surgery consultation is recommended. Patient was offered pain medication here respec tfully declined. No evidence of cauda equina syndrome on my exam. Shortly after patient's arrival here to the ED he was evaluated by Maggy Dunbar PA-C of the spine surgery team. Patient is to be admitted for further evaluation and management with likely operative intervention tomorrow. Please r efer to further documentation regarding his stay. There is no leukocytosis. Mild anemia noted. There is mild elevation of the ESR and CRP. Mild LISANDRA noted. Covid testing pending. Pro-Karri within normal limits. In the evaluation and treatment of this patient the following differential diagnosis entertained: Fracture, dislocation, subluxation, cauda equina syndrome, AAA, diverticulitis, appendicitis, torsion, osteomyelitis, piriformis syndrome, strain, sprain, among others. Impression & Plan Post-operative pain, Abnormal magnetic resonance imaging of lumbar spine Discharge Plan Visit Data Chief Complaint: Infection Stated Complaint: BACK SURG SITE NOW INFECTED ED Provider: Ruben Saab ED Midlevel Provider: Alber Alvarado Discharge Problem: Post-operative pain, Abnormal magnetic resonance imaging of lumbar spine Patient Disposition: Admitted As Inpatient Discharge Instructions Interventions: ED Discharge Assessment Last Done: 02/22/21 15:12
--- NOTE | 2021-02-22 11:35 | Emergency Department Note ---
ED Visit Note I have seen and examined this patient with Alber Alvarado and generally agree with the treatment plan as discussed. .
[2021-02-22] MEDS ORDERED: ONDANSETRON INJ 2 MG/ML 2 ML VIAL IV PRN (12:06)
[2021-02-22] MEDS ORDERED: LORazepam 0.5 MG/1 ML VIAL IV PRN (12:06)
[2021-02-22] MEDS ORDERED: METOCLOPRAMIDE HCL INJ 5 MG/ML 2 ML VIAL IV PRN (12:06)
[2021-02-22] MEDS ORDERED: ONDANSETRON 4 MG OD TAB PO PRN (12:06)
[2021-02-22] MEDS ORDERED: PROMETHAZINE HCL 12.5 MG in SODIUM CHLORIDE 0.9% 50 ML IV PRN (12:06)
[2021-02-22] MEDS ORDERED: NALOXONE HCL 0.4 MG/1 ML VIAL/CARP IV PRN (12:06)
[2021-02-22] MEDS ORDERED: ACETAMINOPHEN 500 MG TAB PO PRN (12:06)
[2021-02-22] MEDS ORDERED: traMADol HCL 50 MG TABLET PO PRN ×2 (12:06→15:24)
[2021-02-22 12:11] LABS: Basophils # (auto) 0.01 K/uL (0-0.2); Basophils % (auto) 0.2 %; Eosinophils # (auto) 0.07 K/uL (0-0.5); Eosinophils % (auto) 1.3 %; Hematocrit (blood only) 34.6 % (42-52); Hemoglobin 11.7 g/dL (14.0-18.0); Immature Granulocytes # (auto) 0.01 K/uL (0.00-0.02); Immature Granulocytes % (auto) 0.2 %; Lymphocytes # (auto) 1.09 K/uL (1.2-3.4); Lymphocytes % (auto) 19.7 %; Mean Corpuscular Hemoglobin 30.1 pg (25-34); Mean Corpuscular Hgb Conc 33.8 g/dL (32-36); Mean Corpuscular Volume 88.9 fL (80-100); Monocytes # (auto) 0.35 K/uL (0.11-0.59); Monocytes % (auto) 6.3 %; Neutrophils # (auto) 3.99 K/uL (1.4-6.5); Neutrophils % (auto) 72.3 %; Platelet Count 183 K/uL (130-400); RDW Coefficient of Variation 16.6 % (11.5-14.5); RDW Standard Deviation 54.4 fL (36.4-46.3); Red Blood Count 3.89 M/uL (4.7-6.1); White Blood Count 5.52 K/uL (4.8-10.8)
--- NOTE | 2021-02-22 12:25 | History & Physical Report ---
Date of Service February 22, 2021 Assessment & Plan (1) Lumbar spinal stenosis: Patient appears to have a postoperative lumbar seroma. He is symptomatic from this. We will therefore admit him from the ED. Continued pain control. DVT prophylaxis is in the form of teds and SCDs. I will make him n.p.o. after midnight in anticipation of I&D of the lumbar spine tomorrow. Will continue with infection/septic work-up and protocol. all questions were answered in detail between the patient and his . History of Present Illness This a pleasant 75-year-old gentleman who presents to the emergency room with complaints of increased lower back and bilateral lower extremity pain and cramping. On January 282020 he underwent an L3-S1 decompression and fusion by Dr. Bedoya. He has had 2 urinary tract infections postoperatively. He does have self catheterize. He is currently on Levaquin from his PCP Dr. Trinidad. Over the past 2 weeks he has had a progressive decline though. He has had an increase in his back pain radiating to the suprapubic area and cramping and pain down both legs. It is worse with standing and walking. He is ambulating independently at home. Denies fevers or chills. Denies perineal numbness. He was in the [place] emergency room yesterday. MRI of the lumbar spine was performed and noted postoperative seroma. He was referred here for further evaluation and treatment by surgeon. Primary Care Provider: Pradip Trinidad MD Allergies Allergy/AdvReac Type Severity Reaction Status Date / Time simvastatin Allergy Intermediate ? abnormal Verified 02/22/21 10:57 labs, pt unsure exactly cephalexin Allergy Mild upset Verified 02/22/21 10:57 stomach hydrochlorothiazide Allergy Mild UPSET Verified 02/22/21 10:57 STOMACH sulfamethoxazole Allergy Mild UPSET Verified 02/22/21 10:57 STOMACH trimethoprim Allergy Mild UPSET Verified 02/22/21 10:57 STOMACH Bactrim Allergy Unknown UPSET Verified 08/26/15 09:51 STOMACH dicloxacillin AdvReac Mild NAUSEA/VOMI Verified 02/22/21 10:57 TING Penicillins AdvReac Mild NAUSEA/VOMI Verified 02/22/21 10:57 TING Home Medications Medication Instructions Recorded Confirmed Type aspirin 81 mg tablet,delayed 81 mg PO DAILY #90 tab 06/12/19 02/22/21 Rx release blood sugar diagnostic #200 ea 06/12/19 02/22/21 Rx hydrocodone 5 mg-acetaminophen 325 1 tab PO QID PRN #120 tab 06/12/19 02/22/21 Rx mg tablet travoprost 0.004 % eye drops 1 drops OP QPM #5 ml 06/12/19 02/22/21 Rx CPAP Machine #1 ea 08/22/19 02/22/21 Rx albuterol sulfate 90 mcg/actuation 2 puffs INHALATION Q4H PRN #1 ea 09/30/19 02/22/21 Rx breath activated powder inhaler glimepiride 1 mg tablet 1 mg PO BID #60 tab 07/30/20 02/22/21 Rx mupirocin 2 % topical ointment 1 applic TOPICAL BID #15 g 08/13/20 02/22/21 Rx valacyclovir 1 gram tablet 2,000 mg PO Q12H 1 Days #20 tab 08/13/20 02/22/21 Rx MDD cold sores lansoprazole 30 mg capsule,delayed 30 mg PO DAILY #30 cap 10/02/20 02/22/21 Rx release pioglitazone 15 mg-metformin 850 1 tab PO BID #180 tab 11/19/20 02/22/21 Rx mg tablet amlodipine 10 mg tablet 10 mg PO DAILY #30 tab 12/01/20 02/22/21 Rx chlorthalidone 25 mg tablet 12.5 mg PO DAILY #45 tab 12/01/20 02/22/21 Rx bupropion HCl 150 mg 24 hr tablet, 450 mg PO QAM #90 tab 01/25/21 02/22/21 Rx extended release losartan 100 mg tablet 100 mg PO DAILY #30 tab 01/25/21 02/22/21 Rx venlafaxine 150 mg 300 mg PO DAILY #60 cap 01/25/21 02/22/21 Rx capsule,extended release 24 hr oxycodone 5 mg PO Q6H PRN #30 tab 01/29/21 02/22/21 Rx tramadol 50 mg PO Q6H PRN #30 tab 01/29/21 02/22/21 Rx labetalol 200 mg tablet 200 mg PO BID #180 tab 02/15/21 02/22/21 Rx levofloxacin 500 mg tablet 500 mg PO DAILY 7 Days #7 tab 02/19/21 02/22/21 Rx Past Med/Surg History Medical History Anemia Back pain, chronic Diabetes mellitus, type 2 Elevated prostate specific antigen (PSA) Fatty liver GERD (gastroesophageal reflux disease) Hyperlipidemia Hypertension Lumbar spinal stenosis Lumbar spinal stenosis Obstructive sleep apnea USES CPAP DEVICE DILIGENTLY Osteoarthritis Recurrent UTI Retention of urine PT STATES SELF CATH BID Urinary retention Surgical History H/O knee surgery LEFT History of carpal tunnel release RT History of cataract surgery RT/LEFT History of colonoscopy History of herniorrhaphy RT INGUINAL History of tooth extraction Hx of tonsillectomy S/P spinal surgery 01/28/21 Dr. Gilbert Bedoya- #1 lumbar decompression bilateral medial facetectomies and foraminotomies L3-4 L4-5 and L5-S1. #2 posterior spinal fusion L3-4 L4-5 L5-S1. #3 patient posterior segmental instrumentation L3- S1. #4 interbody fusion L4-5 and L5-S1. #5 placement peek cage 14 x 26 mm at L4-5 and 14 x 26 mm at L5-S1. #6 placement locally harvested morselized autograft in the posterior lateral gutters. #7 placement infuse collagen sponge, master graft in the posterior lateral gutters and I factor in the interbody space. Family History Brother Family history of diabetes mellitus Other Diabetes Heart disease Hypertension Lung cancer Nephrolithiasis No family history of adverse response to anesthesia Denies family history of Prostate cancer Social History Smoking Status: Never smoker Second Hand Exposure: No; Do You Dip or Chew Tobacco: No; Hx Alcohol Use: No Hx Substance Use: No Preferred Language: Persian Communication Ability: Effective Visual Impairment: No Limitations Hearing Ability: Normal Judge'S Clerk Required: No Beliefs That Will Affect Care: Caodaism Caodaism Beliefs: Zoroastrianism marital status: Current Living Situation: Spouse current occupational status: retired Other Information That Helps Us Care for You: No Feels Safe at Home: Yes Safety Concerns: Feels Safe At This Time Childhood Exposure to Second-Hand Smoke: No caffeine: Yes Dental Care, Regularly: No Physical Activity Frequency: 1-2 Times per Week 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 Review of Systems Review of Systems: All systems reviewed & are unremarkable except as noted in HPI & below Physical Exam Physical Exam: Seen in the emergency room a 3. Seen in conjunction with his . Alert and oriented x3. No acute distress. He is able to roll over on his own so I may inspect his lumbar region but this is quite painful for him. Lumbar incision is well-healed. The area surrounding the incision is quite edematous. No erythema. No drainage. No evidence of purulence. Calves are soft nontender bilaterally. Motor testing is 5 5 bilateral EHL, dorsiflexion, plantarflexion, quadriceps, hamstrings, hip flexors, hip abductor's and hip adductor's. Constitutional: WD/WN, vitals as above Eyes: normal visual rivera by confrontation ENMT: external ear and nose normal, oropharynx normal Neck: normal visual inspection Respiratory: normal respiratory effort Cardiovascular: Extremities: normal capillary refill Chest (Breasts): Chest: normal inspection of chest Gastrointestinal (Abdomen): Inspection/Auscultation: abdomen normal to inspection Musculoskeletal: Extremities: extremities normal to inspection and strength 5/5 throughout Skin: no rashes, warm and dry Neurologic: normal touch/pain/proprioception and moves all extremities Psychiatric: A+Ox3, euthymic affect Results & Data Results & Data ([facility]) Vital Signs (Past 12 Hours) Vital Signs Temp Pulse Resp BP Pulse Ox 02/22/21 10:28 36.3 C L 69 20 124/65 95 Code Status & VTE Plan VTE Prophylaxis Plan VTE Prophylaxis will be ordered: Yes Supervising Physician Co-Signing Physician Notes Dr. Gilbert Bedoya
[2021-02-22 12:26] LABS: INR 1.1 (0.9-1.1); Partial Thromboplastin Time 25.3 Seconds (21.0-31.0); Prothrombin Time 11.4 Seconds (9.0-12.0)
[2021-02-22 12:31] LABS: Albumin Level 3.5 gm/dl (3.4-5.0); C Reactive Protein 1.04 mg/dl (0-0.29); Calcium 8.9 mg/dl (8.5-10.1); Creatinine Clr Calc Pharmacy 50.1 ml/min; Est GFR (Non-African American) 48.3; Magnesium 1.9 mg/dl (1.8-2.4); Potassium 4.3 mmol/L (3.5-5.1)
[2021-02-22 12:34] LABS: Albumin Globulin Ratio 0.9 (0.9-2); Bilirubin,Total 0.5 mg/dl (0.2-1); Globulin 3.9 gm/dl (2.5-4.0); Total Protein 7.4 gm/dl (6.4-8.2)
--- NOTE | 2021-02-22 13:28 | Anesthesiology Consultation ---
Date of Service February 22, 2021 Assessment & Plan (1) Encounter for pre-operative examination: Chart Review Chart Review: Acceptable Risk for Surgery and Patient NOT seen in Pre Admission Testing Consults Requested none History Surgery Operation Date: 02/23/21 09:05 Proposed Procedures p Incision and Drainage Lumbar - Gilbert Bedoya DO Height/Weight Height: 6 ft Weight: 79.8 kg Allergies Allergy/AdvReac Type Severity Reaction Status Date / Time simvastatin Allergy Intermediate ? abnormal Verified 02/22/21 10:57 labs, pt unsure exactly cephalexin Allergy Mild upset Verified 02/22/21 10:57 stomach hydrochlorothiazide Allergy Mild UPSET Verified 02/22/21 10:57 STOMACH sulfamethoxazole Allergy Mild UPSET Verified 02/22/21 10:57 STOMACH trimethoprim Allergy Mild UPSET Verified 02/22/21 10:57 STOMACH Bactrim Allergy Unknown UPSET Verified 08/26/15 09:51 STOMACH dicloxacillin AdvReac Mild NAUSEA/VOMI Verified 02/22/21 10:57 TING Penicillins AdvReac Mild NAUSEA/VOMI Verified 02/22/21 10:57 TING Medications Home Medications Medication Instructions Recorded Confirmed Last Taken aspirin 81 mg tablet,delayed 81 mg PO DAILY #90 tab 06/12/19 02/22/21 01/21/21 08:00 release blood sugar diagnostic #200 ea 06/12/19 02/22/21 Unknown hydrocodone 5 mg-acetaminophen 325 1 tab PO QID PRN #120 tab 06/12/19 02/22/21 Unknown mg tablet travoprost 0.004 % eye drops 1 drops OP QPM #5 ml 06/12/19 02/22/21 01/27/21 22:00 CPAP Machine #1 ea 08/22/19 02/22/21 Unknown albuterol sulfate 90 mcg/actuation 2 puffs INHALATION Q4H PRN #1 ea 09/30/19 02/22/21 Unknown breath activated powder inhaler glimepiride 1 mg tablet 1 mg PO BID #60 tab 07/30/20 02/22/21 01/27/21 08:00 mupirocin 2 % topical ointment 1 applic TOPICAL BID #15 g 08/13/20 02/22/21 Unknown valacyclovir 1 gram tablet 2,000 mg PO Q12H 1 Days #20 tab 08/13/20 02/22/21 Unknown MDD cold sores lansoprazole 30 mg capsule,delayed 30 mg PO DAILY #30 cap 10/02/20 02/22/21 0 01/28/21 05:00 release pioglitazone 15 mg-metformin 850 1 tab PO BID #180 tab 11/19/20 02/22/21 01/28/21 05:00 mg tablet amlodipine 10 mg tablet 10 mg PO DAILY #30 tab 12/01/20 02/22/21 01/28/21 05:00 chlorthalidone 25 mg tablet 12.5 mg PO DAILY #45 tab 12/01/20 02/22/21 01/28/21 05:00 bupropion HCl 150 mg 24 hr tablet, 450 mg PO QAM #90 tab 01/25/21 02/22/21 01/28/21 05:00 extended release losartan 100 mg tablet 100 mg PO DAILY #30 tab 01/25/21 02/22/21 01/28/21 05:00 venlafaxine 150 mg 300 mg PO DAILY #60 cap 01/25/21 02/22/21 01/28/21 05:00 capsule,extended release 24 hr oxycodone 5 mg PO Q6H PRN #30 tab 01/29/21 02/22/21 Unknown tramadol 50 mg PO Q6H PRN #30 tab 01/29/21 02/22/21 Unknown labetalol 200 mg tablet 200 mg PO BID #180 tab 02/15/21 02/22/21 Unknown levofloxacin 500 mg tablet 500 mg PO DAILY 7 Days #7 tab 02/19/21 02/22/21 Unknown Past Medical History Medical History Anemia Back pain, chronic Diabetes mellitus, type 2 Elevated prostate specific antigen (PSA) Fatty liver GERD (gastroesophageal reflux disease) Hyperlipidemia Hypertension Lumbar spinal stenosis Lumbar spinal stenosis Obstructive sleep apnea USES CPAP DEVICE DILIGENTLY Osteoarthritis Recurrent UTI Retention of urine PT STATES SELF CATH BID Urinary retention Past Family History Family History Brother Family history of diabetes mellitus Other Diabetes Heart disease Hypertension Lung cancer Nephrolithiasis No family history of adverse response to anesthesia Denies family history of Prostate cancer Past Surgical History Surgical History H/O knee surgery LEFT History of carpal tunnel release RT History of cataract surgery RT/LEFT History of colonoscopy History of herniorrhaphy RT INGUINAL History of tooth extraction Hx of tonsillectomy S/P spinal surgery 01/28/21 Dr. Gilbert Bedoya- #1 lumbar decompression bilateral medial face tectomies and foraminotomies L3-4 L4-5 and L5-S1. #2 posterior spinal fusion L3-4 L4-5 L5-S1. #3 patient posterior segmental instrumentation L3-S1. #4 interbody fusion L4-5 and L5-S1. #5 placement peek cage 14 x 26 mm at L4-5 and 14 x 26 mm at L5-S1. #6 placement locally harvested morselized autograft in the posterior lateral gutters. #7 placement infuse collagen sponge, master graft in the posterior lateral gutters and I factor in the interbody space. Social History Smoking Status: Never smoker Hx Alcohol Use: No Hx Substance Use: No substance use type: does not use Physical Exam Vital Signs Last Vital Signs Temp 36.3 C L 02/22/21 10:28 Pulse 69 02/22/21 10:28 Resp 20 02/22/21 10:28 BP 124/65 02/22/21 10:28 Pulse Ox 97 02/22/21 12:39 Testing Laboratory Results 02/22/21 11:48 02/22/21 11:48 PT 11.4 Seconds (9.0-12.0) 02/22/21 11:48 INR 1.1 (0.9-1.1) 02/22/21 11:48 APTT 25.3 Seconds (21.0-31.0) 02/22/21 11:48 Electrocardiogram Date: 01/12/21 Findings: + NSR @ (69) Chest X-Ray Date: 01/12/21 XR chest Pre-admission PA/Lat HISTORY: Preop. COMPARISON: None. FINDINGS: There are low lung volumes with mild elevation of the right hemidiaphragm. No pneumothorax. No pleural effusions. No focal lung consolidations to suggest pneumonia. No evidence for pulmonary edema. IMPRESSION: Low lung volumes with mild elevation of the right hemidiaphragm. Otherwise, no acute process within the chest. ACT 112: Negative or not required by law. Electronically signed by: Yobany Isaac M.D. 01/12/2021 2:15 PM Dictated: 01/12/21 1414Transcribed: 01/12/21 1414
[2021-02-22] MEDS: LACTATED RINGER'S 1,000 ML IV SCH (13:35)
[2021-02-22 13:38] LABS: Influenza A virus by PCR Negative (Neg); Influenza B virus by PCR Negative (Neg); RSV by PCR Negative (Neg); SARS CoV2 RNA(COVID-19) InHosp NEGATIVE (Negative)
[2021-02-22] MEDS: oxyCODONE HCL IR 5 MG TAB (IMMEDIATE RELEASE) PO PRN ×3 (13:41→22:10)
[2021-02-22] MEDS ORDERED: oxyCODONE IR HOME PACK PO PRN (15:24)
[2021-02-22] MEDS ORDERED: HYDROCODONE/ACETAMOPHEN 5/325MG TAB PO PRN (15:24)
--- NOTE | 2021-02-22 16:05 | Hospitalist Consultation ---
Date of Consultation February 22, 2021 Assessment & Plan (1) Abnormal magnetic resonance imaging of lumbar spine: Mr. Edward is a 75 year old male with a history of Type 2 DM, Hypertension, ESTELLA, GERD, Chronic Urinary Retention(straight caths himself), and Lumbar Spinal Stenosis s/p L3 through S1 Decompression and Fusion with Dr. Bedoya 01/28/21. His surgery was well tolerated without cardiac, medical, or anesthesia related complications. However, over the past 2 weeks he has had a progressive decline. He has noted an increase in his back pain that radiates to the suprapubic area and cramping and pain down both legs. It is worse with standing and walking. He is ambulating independently at home. He denies fevers or chills. Denies perineal numbness. Patient denies any fecal incontinence. He denies any focal weakness of either lower extremity. Because of his increased back and leg symptoms, the patient went to [facility] ER yesterday. MRI of the Lumbar Spine 02/21/21 showed a postoperative seroma. He was referred [facility] for further evaluation and treatment by his spine surgeon, Dr. Bedoya. Plan is to go to OR tomorrow for an I&D of this seroma. Based on the fact that the patient tolerated this recent lumbar spinal surgery without complications -- Patient is an acceptable surgical risk to proceed with surgery as scheduled, there is no need for further cardiac or medical evaluation. Recommend that he take his usual doses of Labetalol and Aml odipine the morning of surgery with sips of water. Hold Losartan the morning of surgery. 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 and Glimepiride 1 mg b.i.d.. -- Hold the Metformin containing medication for the time being. -- BSG checks, convert to Sliding Scale Insulin while hospitalized. -- Most recent HgbA1c was 6.4% on 01/12/21. Current Creatinine is elevated above baseline at 1.42 mg/dl (baseline range 1.06 to 1.23 mg/dl). -- Gentle IVF's. -- Monitor daily BMP. -- Hold Chlorthalidone. -- Hold Losartan for upcoming surgical procedure. (3) Hypertension: -- BP appears to be well controlled. -- Continue Labetalol 200 mg b.i.d.. -- Continue Amlodipine 10 mg daily. (4) Urinary retention: Patient has a history of chronic urinary retention for which he straight c atheterizes twice a day. He states that he has had 2 UTI's since his surgery 01/28/21 which manifested as urinary pressure, discolored and malodorous urine. He took a course of Cipro from Dr. Santos. More recently, his primary care physician Dr. Trinidad ordered Levaquin. He is currently this course of Levaquin. (5) Encounter for pre-operative examination: Based on the fact that the patient tolerated this recent lumbar spinal surgery without complications -- Patient is an acceptable surgical risk to proceed with surgery as scheduled, there is no need for further cardiac or medical evaluation. Recommend that he take his usual doses of Labetalol and Amlodipine the morning of surgery with sips of water. Hold Losartan the morning of surgery. (6) Obstructive sleep apnea: -- He uses CPAP set at 12.0 cmH2O. -- Continue CPAP. (7) Recurrent UTI: -- Chronic urinary retention, straight catheterizes twice a day. -- Recent urine analysis 02/19/21 showed no WBC's, no RBC's, and no leukocyte esterase. -- Finish out current course of Levaquin. Supervising Physician Co-Signing Physician Notes I personally saw and examined the patient. I verified all holt points and agree with Tom Mejia PA-C with the following exceptions and/or additions: 75 yo male. Consulted for pre-op management regarding post operative seroma. Patient cleared for recent surgery with chest x-ray January 12 and EKG reviewed. No chest pain or shortness of breath on exertion to suggest these need repeating. Agree with holding losartan and chlorthalidone on day of surgery. Questionable UTI diagnosis however will complete course of Levaquin as previously prescribed by his PCP. Revised cardiac risk score 1. 6% 30-day risk of , OR, cardiac arrest. He is medically optimized for surgery at this time. History of Present Illness Reason for Consultation: -- Medical Management. -- S/P Lumbar Decompression and Fusion 01/28/21. -- Preoperative Evaluation. Requesting Physician: Gilbert Bedoya DO Attending Physician: Harris Wayne MD History of Present Illness Mr. Edward is a 75 year old male with a history of Type 2 DM, Hypertension, ESTELLA, GERD, Chronic Urinary Retention(straight caths himself), and Lumbar Spinal Stenosis s/p L3 through S1 Decompression and Fusion with Dr. Bedoya 01/28/21. His surgery was well tolerated without cardiac, medical, or anesthesia related c omplications. However, over the past 2 weeks he has had a progressive decline. He has noted an increase in his back pain that radiates to the suprapubic area and cramping and pain down both legs. It is worse with standing and walking. He is ambulating independently at home. He denies fevers or chills. Denies perineal numbness. Patient denies any fecal incontinence. He denies any focal weakness of either lower extremity. Patient states that he has had 2 UTI's since his surgery which manifested as urinary pressure, discolored and malodorous urine. He took a course of Cipro from Dr. Santos. More recently, his primary care physician Dr. Trinidad ordered Levaquin. He is currently still on Levaquin. Because of his increased back and leg symptoms, the patient went to [facility] ER yesterday. MRI of the Lumbar Spine 02/21/21 showed a postoperative seroma. He was referred [facility] for further evaluation and treatment by his spine surgeon, Dr. Bedoya. Plan is to go to OR tomorrow for an I&D of this seroma. Allergies Allergy/AdvReac Type Severity Reaction Status Date / Time simvastatin Allergy Intermediate ? abnormal Verified 02/22/21 10:57 labs, pt unsure exactly cephalexin Allergy Mild upset Verified 02/23/21 09:06 stomach hydrochlorothiazide Allergy Mild UPSET Verified 02/22/21 10:57 STOMACH sulfamethoxazole Allergy Mild UPSET Verified 02/22/21 10:57 STOMACH trimethoprim Allergy Mild UPSET Verified 02/22/21 10:57 STOMACH Bactrim Allergy Unknown UPSET Verified 08/26/15 09:51 STOMACH dicloxacillin AdvReac Mild NAUSEA/VOMI Verified 02/22/21 10:57 TING Penicillins AdvReac Mild NAUSEA/VOMI Verified 02/23/21 09:06 TING Home Medications Medication Instructions Recorded Confirmed Type aspirin 81 mg tablet,delayed 81 mg PO DAILY #90 tab 06/12/19 02/22/21 Rx release blood sugar diagnostic #200 ea 06/12/19 02/22/21 Rx hydrocodone 5 mg-acetaminophen 325 1 tab PO QID PRN #120 tab 06/12/19 02/22/21 Rx mg tablet travoprost 0.004 % eye drops 1 drops OP QPM #5 ml 06/12/19 02/22/21 Rx CPAP Machine #1 ea 08/22/19 02/22/21 Rx albuterol sulfate 90 mcg/actuation 2 puffs INHALATION Q4H PRN #1 ea 09/30/19 02/22/21 Rx breath activated powder inhaler glimepiride 1 mg tablet 1 mg PO BID #60 tab 07/30/20 02/22/21 Rx mupirocin 2 % topical ointment 1 applic TOPICAL BID #15 g 08/13/20 02/22/21 Rx valacyclovir 1 gram tablet 2,000 mg PO Q12H 1 Days #20 tab 08/13/20 02/22/21 Rx MDD cold sores lansoprazole 30 mg capsule,delayed 30 mg PO DAILY #30 cap 10/02/20 02/22/21 Rx release pioglitazone 15 mg-metformin 850 1 tab PO BID #180 tab 11/19/20 02/22/21 Rx mg tablet amlodipine 10 mg tablet 10 mg PO DAILY #30 tab 12/01/20 02/22/21 Rx chlorthalidone 25 mg tablet 12.5 mg PO DAILY #45 tab 12/01/20 02/22/21 Rx bupropion HCl 150 mg 24 hr tablet, 450 mg PO QAM #90 tab 01/25/21 02/22/21 Rx extended release losartan 100 mg tablet 100 mg PO DAILY #30 tab 01/25/21 02/22/21 Rx venlafaxine 150 mg 300 mg PO DAILY #60 cap 01/25/21 02/22/21 Rx capsule,extended release 24 hr oxycodone 5 mg PO Q6H PRN #30 tab 01/29/21 02/22/21 Rx tramadol 50 mg PO Q6H PRN #30 tab 01/29/21 02/22/21 Rx labetalol 200 mg tablet 200 mg PO BID #180 tab 02/15/21 02/22/21 Rx levofloxacin 500 mg tablet 500 mg PO DAILY 7 Days #7 tab 02/19/21 02/22/21 Rx Patient History Medical History Anemia Back pain, chronic Diabetes mellitus, type 2 Elevated prostate specific antigen (PSA) Fatty liver GERD (gastroesophageal reflux disease) Hyperlipidemia Hypertension Lumbar spinal stenosis Lumbar spinal stenosis Obstructive sleep apnea USES CPAP DEVICE DILIGENTLY Osteoarthritis Recurrent UTI Retention of urine PT STATES SELF CATH BID Urinary retention Surgical History H/O knee surgery LEFT History of carpal tunnel release RT History of cataract surgery RT/LEFT History of colonoscopy History of herniorrhaphy RT INGUINAL History of tooth extraction Hx of tonsillectomy S/P spinal surgery 01/28/21 Dr. Gilbert Bedoya- #1 lumbar decompression bilateral medial facetectomies and foraminotomies L3-4 L4-5 and L5-S1. #2 posterior spinal fusion L3-4 L4-5 L5-S1. #3 patient posterior segmental instrumentation L3- S1. #4 interbody fusion L4-5 and L5-S1. #5 placement peek cage 14 x 26 mm at L4-5 and 14 x 26 mm at L5-S1. #6 placement locally harvested morselized autograft in the posterior lateral gutters. #7 placement infuse collagen sponge, master graft in the posterior lateral gutters and I factor in the interbody space. Family History Brother Family history of diabetes mellitus Other Diabetes Heart disease Hypertension Lung cancer Nephrolithiasis No family history of adverse response to anesthesia Denies family history of Prostate cancer Social History Smoking Status: Never smoker Second Hand Exposure: No; Do You Dip or Chew Tobacco: No; Hx Alcohol Use: No Hx Substance Use: No Preferred Language: Latvian Communication Ability: Effective Visual Impairment: No Limitations Hearing Ability: Normal Stem Mounter Required: No Beliefs That Will Affect Care: Mu-Ism Mu-Ism Beliefs: Methodist marital status: Current Living Situation: Spouse current occupational status: retired Other Information That Helps Us Care for You: No Feels Safe at Home: Yes Safety Concerns: Feels Safe At This Time Childhood Exposure to Second-Hand Smoke: No caffeine: Yes Dental Care, Regularly: No Physical Activity Frequency: 1-2 Times per Week 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 Physical Exam Physical Exam: GENERAL: Patient in no acute distress. HEENT: Head is atraumatic, normocephalic. EOM's intact. Facies symmetric. No perioral cyanosis. NECK: No JVD. JVP is not elevated. Carotid upstrokes are + 2 bilaterally. No bruits are noted. CHEST/LUNGS: Clear to auscultation throughout all lung rivera. No wheezes, rales, or crackles. CVS: S1 and S2 are regular without obvious murmurs, gallops, or rubs. PMI is nondisplaced. No lifts, heaves, or thrills. No abdominal aortic or renal bruits. ABDOMINAL EXAM: Bowel sounds are present. No masses, organomegaly, or tenderness. EXTREMITIES: No clubbing or cyanosis. No edema. Intact posterior tibial and radial pulses bilaterally. NEUROLOGIC EXAM: Patient is awake, alert, and oriented. Pleasant and cooperative. Answers questions appropriately. Speech is clear. Normal movement in all 4 extremities. Normal strength in major muscle groups of bilateral lower extremities. Gait pattern was not assessed. Results & Data Results & Data ([facility]) Vital Signs (Past 12 Hours) Vital Signs Temp Pulse Resp BP Pulse Ox 02/22/21 12:39 97 02/22/21 10:28 36.3 C L 69 20 124/65 95 Laboratory Results Laboratory Results - last 24 hr 02/22/21 02/22/21 02/22/21 11:48 11:48 11:48 WBC 5.52 RBC 3.89 L Hgb 11.7 L Hct 34.6 L MCV 88.9 MCH 30.1 MCHC 33.8 RDW Std Deviation 54.4 H RDW Coeff of Hector 16.6 H Plt Count 183 MPV 10.0 Immature Gran % (Auto) 0.2 Neut % (Auto) 72.3 Lymph % (Auto) 19.7 Saunders % (Auto) 6.3 Eos % (Auto) 1.3 Baso % (Auto) 0.2 Neut # (Auto) 3.99 Lymph # (Auto) 1.09 L Saunders # (Auto) 0.35 Eos # (Auto) 0.07 Baso # (Auto) 0.01 Immature Gran # (Auto) 0.01 ESR 43 H PT INR APTT PTT Ratio Sodium Potassium Chloride Carbon Dioxide Anion Gap BUN Creatinine Est Cr Clr Drug Dosing Est GFR ( Amer) Est GFR (Non-Af Amer) BUN/Creatinine Ratio Glucose Lactate 1.1 Calcium Magnesium Total Bilirubin AST ALT Alkaline Phosphatase C-Reactive Protein Total Protein Albumin Globulin Albumin/Globulin Ratio Procalcitonin COVID-19 Eval Order SARS-CoV-2 (PCR) Influenza Type A (PCR) Influenza Type B (PCR) RSV (RT-PCR) 02/22/21 02/22/21 02/22/21 11:48 11:48 11:48 WBC RBC Hgb Hct MCV MCH MCHC RDW Std Deviation RDW Coeff of Hector Plt Count MPV Immature Gran % (Auto) Neut % (Auto) Lymph % (Auto) Saunders % (Auto) Eos % (Auto) Baso % (Auto) Neut # (Auto) Lymph # (Auto) Saunders # (Auto) Eos # (Auto) Baso # (Auto) Immature Gran # (Auto) ESR PT 11.4 INR 1.1 APTT 25.3 PTT Ratio 1.0 Sodium 140 Potassium 4.3 Chloride 108 H Carbon Dioxide 23 Anion Gap 9.0 BUN 33 H Creatinine 1.42 H Est Cr Clr Drug Dosing 50.1 Est GFR ( Amer) 56.0 Est GFR (Non-Af Amer) 48.3 BUN/Creatinine Ratio 23.0 H Glucose 102 H Lactate Calcium 8.9 Magnesium 1.9 Total Bilirubin 0.5 AST 23 ALT 22 Alkaline Phosphatase 166 H C-Reactive Protein 1.04 H Total Protein 7.4 Albumin 3.5 Globulin 3.9 Albumin/Globulin Ratio 0.9 Procalcitonin 0.05 COVID-19 Eval Order SARS-CoV-2 (PCR) Influenza Type A (PCR) Influenza Type B (PCR) RSV (RT-PCR) 02/22/21 02/22/21 12:39 12:39 WBC RBC Hgb Hct MCV MCH MCHC RDW Std Deviation RDW Coeff of Hector Plt Count MPV Immature Gran % (Auto) Neut % (Auto) Lymph % (Auto) Saunders % (Auto) Eos % (Auto) Baso % (Auto) Neut # (Auto) Lymph # (Auto) Saunders # (Auto) Eos # (Auto) Baso # (Auto) Immature Gran # (Auto) ESR PT INR APTT PTT Ratio Sodium Potassium Chloride Carbon Dioxide Anion Gap BUN Creatinine Est Cr Clr Drug Dosing Est GFR ( Amer) Est GFR (Non-Af Amer) BUN/Creatinine Ratio Glucose Lactate Calcium Magnesium Total Bilirubin AST ALT Alkaline Phosphatase C-Reactive Protein Total Protein Albumin Globulin Albumin/Globulin Ratio Procalcitonin COVID-19 Eval Order CovFluRsv at [facility] SARS-CoV-2 (PCR) NEGATIVE Influenza Type A (PCR) Negative Influenza Type B (PCR) Negative RSV (RT-PCR) Negative Medications Administered Medications aspirin 81 mg tablet,delayed release 81 mg PO DAILY #90 tab 06/12/19 [Rx Confi rmed 02/22/21] blood sugar diagnostic #200 ea 06/12/19 [Rx Confirmed 02/22/21] hydrocodone 5 mg-acetaminophen 325 mg tablet 1 tab PO QID PRN #120 tab 06/12/19 [Rx Confirmed 02/22/21] travoprost 0.004 % eye drops 1 drops OP QPM #5 ml 06/12/19 [Rx Confirmed 02/22/21] CPAP Machine #1 ea 08/22/19 [Rx Confirmed 02/22/21] albuterol sulfate 90 mcg/actuation breath activated powder inhaler 2 puffs INHALATION Q4H PRN #1 ea 09/30/19 [Rx Confirmed 02/22/21] glimepiride 1 mg tablet 1 mg PO BID #60 tab 07/30/20 [Rx Confirmed 02/22/21] mupirocin 2 % topical ointment 1 applic TOPICAL BID #15 g 08/13/20 [Rx Confirmed 02/22/21] valacyclovir 1 gram tablet 2,000 mg PO Q12H 1 Days #20 tab MDD cold sores 08/13/20 [Rx Confirmed 02/22/21] lansoprazole 30 mg capsule,delayed release 30 mg PO DAILY #30 cap 10/02/20 [Rx Confirmed 02/22/21] pioglitazone 15 mg-metformin 850 mg tablet 1 tab PO BID #180 tab 11/19/20 [Rx Confirmed 02/22/21] amlodipine 10 mg tablet 10 mg PO DAILY #30 tab 12/01/20 [Rx Confirmed 02/22/21] chlorthalidone 25 mg tablet 12.5 mg PO DAILY #45 tab 12/01/20 [Rx Confirmed 02/22/21] bupropion HCl 150 mg 24 hr tablet, extended release 450 mg PO QAM #90 tab 01/25/21 [Rx Confirmed 02/22/21] losartan 100 mg tablet 100 mg PO DAILY #30 tab 01/25/21 [Rx Confirmed 02/22/21] venlafaxine 150 mg capsule,extended release 24 hr 300 mg PO DAILY #60 cap 01/25/21 [Rx Confirmed 02/22/21] oxycodone 5 mg PO Q6H PRN #30 tab 01/29/21 [Rx Confirmed 02/22/21] tramadol 50 mg PO Q6H PRN #30 tab 01/29/21 [Rx Confirmed 02/22/21] labetalol 200 mg tablet 200 mg PO BID #180 tab 02/15/21 [Rx Confirmed 02/22/21] levofloxacin 500 mg tablet 500 mg PO DAILY 7 Days #7 tab 02/19/21 [Rx Confirmed 02/22/21] Home Medications Acetaminophen (Acetaminophen 500 Mg Tab) 1,000 mg PO Q8H PRN PRN Reason: MILD Pain Scale 1,2,3 & Pre PT Stop: 03/24/21 12:05 Hydrocodone Bitart/Acetaminophen (Hydrocodone/Acetamophen 5/325mg Tab) 1 tab PO QID PRN PRN Reason: pain Stop: 03/08/21 15:23 Amlodipine Besylate (Amlodipine Besylate 5 Mg Tab) 10 mg PO DAILY RICCI Stop: 03/25/21 08:59 Bupropion HCl (Bupropion Xl 150 Mg Tabcr) 450 mg PO QAM RICCI Stop: 03/25/21 08:59 Chlorthalidone (Chlorthalidone 25 Mg Tab) 12.5 mg PO DAILY RICCI Stop: 03/25/21 08:59 Glimepiride (Glimepiride 2 Mg Tab) 1 mg PO BID17 RICCI Stop: 03/24/21 16:59 Hydromorphone HCl (Hydromorphone Inj 0.5 Mg/0.5 Ml Syr) 0.5 - 1 mg IV Q3H PRN PRN Reason: MOD pain (scale 4-6) & Pre PT Stop: 03/08/21 12:05 Lactated Ringer's (Lr) 1,000 mls @ 75 mls/hr IV .[id number] [facility] Stop: 03/24/21 12:14 Last Admin: 02/22/21 13:35 Dose: 75 mls/hr Documented by: Promethazine HCl 12.5 mg/ (Sodium Chloride) 50.5 mls @ 202 mls/hr IV Q6H PRN PRN Reason: Nausea &/or Vomiting Stop: 03/24/21 12:05 Lorazepam (Ativan) 0.5 mg in 1 mls @ 1 mls/min IV Q8H PRN PRN Reason: Sedation/Anxiety Stop: 03/24/21 12:05 Labetalol HCl (Labetalol Hcl 200 Mg Tab) 200 mg PO BID [facility] Stop: 03/24/21 20:59 Levofloxacin (Levofloxacin 500 Mg Tab) 500 mg PO DAILY@1100 [facility] Stop: 02/27/21 11:01 Losartan Potassium (Losartan Potassium 50 Mg Tab) 100 mg PO DAILY [facility] Stop: 03/25/21 08:59 Metformin HCl (Metformin Hcl 850 Mg Tab) 850 mg PO BIDM [facility] Stop: 03/24/21 16:59 Metoclopramide HCl (Metoclopramide Hcl Inj 5 Mg/Ml 2 Ml Vial) 10 mg IV Q6H PRN PRN Reason: Nausea &/or Vomiting Stop: 03/24/21 12:05 Naloxone HCl (Naloxone Hcl 0.4 Mg/1 Ml Vial/Carp) 0.1 mg IV Q5M PRN PRN Reason: Oversedation/respiratory dep Stop: 03/24/21 12:05 Ondansetron HCl (Ondansetron Inj 2 Mg/Ml 2 Ml Vial) 4 mg IV Q6H PRN PRN Reason: Nausea &/or Vomiting Stop: 03/24/21 12:05 Ondansetron HCl (Ondansetron 4 Mg Od Tab) 4 mg PO Q6H PRN PRN Reason: Nausea Stop: 03/24/21 12:05 Oxycodone HCl (Oxycodone Hcl Ir 5 Mg Tab (Immediate Release)) 5 - 10 mg PO Q4H PRN PRN Reason: mod to severe pain Stop: 03/08/21 12:05 Last Admin: 04/26/21 13:41 Dose: 5 mg Documented by: Pantoprazole Sodium (Pantoprazole 40 Mg Tab) 40 mg PO DAILY [facility] Stop: 03/25/21 08:59 Pioglitazone HCl (Pioglitazone Hcl 15 Mg Tab) 15 mg PO BIDM RICCI Stop: 03/24/21 16:59 Tramadol HCl (Tramadol Hcl 50 Mg Tablet) 50 - 100 mg PO Q4H PRN PRN Reason: Moderate-Severe pain & Pre PT Stop: 03/24/21 12:05 Travoprost (Travoprost Z 0.004% Oph Soln 2.5 Ml Btl) 1 drops OP QPM RICCI Stop: 03/24/21 20:59 Venlafaxine HCl (Venlafaxine Hcl Xr 150 Mg Capxr) 300 mg PO DAILY RICCI Stop: 03/25/21 08:59 PG Care Time/CCT Total # of Minutes Spent Total Time Spent with Patient: Total time spent is greater than 50% in coordination of care (as documented) at patient's floor/unit and/or counseling patient: Coding Level of Care Code 67762 Inpt Consult Level 4 Diagnoses Abnormal magnetic resonance imaging of lumbar spine R93.7 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
[2021-02-22] MEDS ORDERED: metFORMIN HCL 850 MG TAB PO SCH (17:00)
[2021-02-22] MEDS ORDERED: PIOGLITAZONE HCL 15 MG TAB PO SCH (17:00)
[2021-02-22] MEDS ORDERED: PHARMACY GLYCEMIC MGMT CONSULT PRN (17:16)
[2021-02-22] MEDS ORDERED: GLUCOSE 40% GEL 15 GM TUBE PO PRN (17:45)
[2021-02-22] MEDS ORDERED: GLUCOSE 10 TABS/TUBE PO PRN (17:45)
[2021-02-22] MEDS ORDERED: GLUCAGON FOR INJ 1 MG VIAL IM PRN (17:45)
[2021-02-22] MEDS ORDERED: CARBOHYDRATES FOR HYPOGLYCEMIA PO PRN (17:45)
[2021-02-22] MEDS ORDERED: DEXTROSE 50% 50 ML SYRINGE IV PRN (17:45)
[2021-02-22] MEDS: GLIMEPIRIDE 2 MG TAB PO SCH (18:17)
[2021-02-22] MEDS: LABETALOL HCL 200 MG TAB PO SCH (21:50)
[2021-02-22] MEDS: TRAVOPROST Z 0.004% OPH SOLN 2.5 ML BTL OP SCH (22:12)
[2021-02-23] MEDS: INSULIN ASPART 100 UNITS/ML 3 ML PEN SC SCH ×5 (00:26→21:05)
[2021-02-23] MEDS: LACTATED RINGER'S 1,000 ML IV SCH (00:34)
[2021-02-23] MEDS: oxyCODONE HCL IR 5 MG TAB (IMMEDIATE RELEASE) PO PRN ×5 (03:01→23:32)
[2021-02-23 06:34] LABS: BUN Creatinine Ratio 19.1 (10-20); Calcium 8.7 mg/dl (8.5-10.1); Creatinine Clr Calc Pharmacy 66.3 ml/min; Est GFR (African American) 71.5; Est GFR (Non-African American) 61.7
[2021-02-23] MEDS: LABETALOL HCL 200 MG TAB PO SCH ×2 (07:48→21:16)
[2021-02-23] MEDS: amLODIPine BESYLATE 5 MG TAB PO SCH (07:48)
[2021-02-23] MEDS ORDERED: ePHEDrine sulfate 50 MG/ML AMP IV PRN (08:13)
[2021-02-23] MEDS ORDERED: PHENYLEPHRINE 100MCG/ML 5ML SYR IV PRN (08:13)
[2021-02-23] MEDS ORDERED: MEPERIDINE HCL 25 MG/ML CARP/VIAL IV PRN (08:13)
[2021-02-23] MEDS ORDERED: ATROPINE SULFATE 0.1 MG/ML 10ML SYR IV PRN (08:13)
[2021-02-23] MEDS ORDERED: HYDROmorphone INJ 1 MG/ML SYRINGE IV PRN (08:13)
[2021-02-23] MEDS ORDERED: ONDANSETRON INJ 2 MG/ML 2 ML VIAL IV PRN ×2 (08:13→12:41)
[2021-02-23] MEDS ORDERED: fentaNYL citrate 100 MCG/2 ML VIAL IV PRN (08:13)
[2021-02-23] MEDS ORDERED: LABETALOL HCL IV 5 MG/ML 20ML IV PRN (08:13)
[2021-02-23] MEDS ORDERED: fentaNYL citrate 100 MCG/2 ML VIAL ONE ×2 (08:22→11:25)
[2021-02-23] MEDS ORDERED: MIDAZOLAM HCL 1 MG/ML 2ML VIAL ONE (08:22)
--- NOTE | 2021-02-23 08:46 | History & Physical Bridge Note ---
Date of Service February 23, 2021 History & Physical Bridge Note I have examined the patient, reviewed the History & Physical and in the interval since the performance of the History & Physical I have noted the following changes of clinical significance: no changes noted Irrigation and debridement lumbar spine decompression fusion L2-L3
[2021-02-23] MEDS ORDERED: ceFAZolin 2,000 MG/15 ML IV PUSH IV ONE (08:52)
[2021-02-23] MEDS ORDERED: GENTAMICIN SULFATE 40 MG/ML 2 ML VIAL ONE (08:54)
[2021-02-23] MEDS ORDERED: BUPIVACAINE/EPINEPHRINE 0.5% MPF 1:200,000 30 ML VIAL ONE (08:54)
[2021-02-23] MEDS ORDERED: VANCOMYCIN HCL 1000MG/20ML VIAL ONE (08:54)
[2021-02-23] MEDS ORDERED: LOSARTAN POTASSIUM 50 MG TAB PO SCH (09:00)
[2021-02-23] MEDS ORDERED: CHLORTHALIDONE 25 MG TAB PO SCH (09:00)
[2021-02-23] MEDS ORDERED: PIOGLITAZONE HCL 15 MG TAB PO SCH (09:00)
[2021-02-23] MEDS ORDERED: ceFAZolin 2000MG 2,000 MG/15 ML SYR IV SCH (09:05)
[2021-02-23] MEDS ORDERED: FLOSEAL HEMOSTATIC MATRIX 10ML TOP ONE (09:48)
[2021-02-23] MEDS ORDERED: LIDOCAINE 2% 2 ML VIAL/AMP(20MG/ML) INFIL ONE (10:11)
[2021-02-23] MEDS ORDERED: ePHEDrine sulfate 50 MG/ML SYR ONE (10:11)
[2021-02-23] MEDS ORDERED: PHENYLEPHRINE 100MCG/ML 5ML SYR ONE (10:11)
[2021-02-23] MEDS ORDERED: PHENYLEPHRINE HCL 10 MG/ML VIAL ONE (10:11)
[2021-02-23] MEDS ORDERED: NEOSTIGMINE METHYLSULFATE 1 MG/ML 10ML VIAL ONE (10:11)
[2021-02-23] MEDS ORDERED: ONDANSETRON INJ 2 MG/ML 2 ML VIAL ONE (10:11)
[2021-02-23] MEDS ORDERED: ROCURONIUM BROMIDE 10 MG/ML 5 ML VIAL IV ONE (10:11)
[2021-02-23] MEDS ORDERED: LARYING-O-JET KIT (LTA) ONE (10:11)
[2021-02-23] MEDS ORDERED: GLYCOPYRROLATE 0.2 MG/ML VIAL ONE (10:11)
[2021-02-23] MEDS ORDERED: PROPOFOL IV EMULSION 10 MG/ML 20 ML VIAL IV ONE (10:11)
[2021-02-23] MEDS ORDERED: ALBUMIN HUMAN 5% 12.5 GM/250 ML VIAL IV ONE (10:20)
--- NOTE | 2021-02-23 11:01 | Operative Report ---
Post Operative Report Pre & Post Diagnosis Operation Date: 02/23/21 09:05 Pre-Op Diagnosis: POST OP LUMBAR SEROMA Severe spinal stenosis with facet cyst L2-L3. Post-Op Diagnosis: POST OP LUMBAR SEROMA Loose hardware bilateral L3 pedicle screws. Severe spinal stenosis with facet cyst L2-L3. I identified the patient and participated in the time-out.: Yes Procedure Operation Date: 02/23/21 09:05 Actual Procedures #1 evacuation of lumbar hematoma. #2 removal of L3 pedicle screws. #3 revision decompression with bilateral medial facetectomies and foraminotomies L2-3 and L3-4. #4 posterior spinal fusion L2-3 L3-4. #5 placement posterior segmental instrumentation L2 and L3 with connection to the pre-existing L4-L5 and S1 screws. #6 interbody fusion L2-3 and L3-4. #7 placement peek cage 14 x 26 mm at L2-3 and 13 x 26 mm at L3-4. #8 placement locally harvested morselized autograft in the posterior gutters. #9 placement of infuse collagen sponge, master graft in the posterior gutters and I factor in the interbody spaces of L2-3 and L3-4. Surgeon Gilbert Bedoya, DO [employer] Maggy Torres Estimated Blood Loss 250 Findings See Below Patient has evidence of his significant lumbar epidural hematoma with gross loosening of the L3 pedicle screws bilaterally. Specimens None Indications This is a 75-year-old male that presents with marked increase in back pain was determined to have a large hematoma and underwent the above-mentioned procedure. Description of Procedure Patient was met with identified informed consent obtained. Patient was then taken to the operative suite underwent a patient placed in a prone position on Shuan table top Amrik frame. All bony prominences well-padded eyes inspected to ensure no external pressure placed upon the. This point the lumbar spine was prepped and draped in a sterile fashion. Sharp dissection with the assistance of Bovie cautery was performed down to and exposing the lamina and transverse processes of L2 and the instrumentation at L3-L4-L5 and S1 levels bilaterally. Obviously massive hematoma was identified and evacuated in its entirety. I then explored the fusion mass and instrumentation noticing marked loosening of the L3 pedicle screws. I subsequently removed all the end caps and the rods. The L3 pedicle screws literally pulled directly out of the pedicles by hand. I then performed a revision complete decompression of L3-4 and L2-3 including bilateral medial facetectomies and foraminotomies addressing severe stenosis. Pedicle screws were then inserted and L2 and screws were reinserted in the L3 pedicle screws with the augmentation of bone cement to assist in fixation. Proper size rods were then contoured and placed bilaterally. By way of a transforaminal portion left complete discectomy of L3-4 was performed endplates curetted to subcortically bone and a 13 x 26 mm peek cage filled I factor tapped in position. Then proceeded to L2-L3 and again by way of a transforaminal approach on the left pleat discectomy performed endplates curetted to subcortically bone and a 14 x 26 mm peek cage filled I factor tapped in position. The rods were then locked in final position bilaterally. This included a cross-link. I burred the transverse processes to subcortical being bone of L2 and L3 bilaterally. Infuse collagen sponge, and master graft local autograft was placed in the posterior gutters. 15 round RUDY drain inserted. Approximately 10 cc of stimulant beads impregnated with vancomycin gentamicin were then placed throughout the incision. Incision was then closed with 1 Vicryl in the fascia 2-0 Vicryl subcutaneously and 4 Monocryl for final skin closure. Steri-Strip sterile dressings placed. Patient will continue PACU stable condition. Please note Maggy Torres was present at the entire surgery involved the patient positioning complex portions of the surgery and final skin closure. I attest to the content of the Intraoperative Record and any orders documented therein. Any exceptions are noted below.
--- NOTE | 2021-02-23 11:17 | Fluoroscopy Report ---
FL lumbar spine 2-3V CLINICAL HISTORY: I d COMPARISON STUDY: Lumbar spine fluoroscopic images January 28, 2021. FLUOROSCOPY TIME: 20 seconds. FLUOROSCOPIC IMAGES: 4 FINDINGS: These images demonstrate interval L2-L3 and L3-L4 discectomies with interbody spacer placem ent. Pre-existing discectomies are noted. There is posterior decompression with bilateral pedicle scr ew fusion from L2 through S1. IMPRESSION: Fluoroscopy provided during L2-L3 and L3-L4 discectomies with posterior decompression an d bilateral pedicle screw fusion, as above. ACT 112: Negative or not required by law. Electronically signed by: Americo Russell M.D. 02/23/2021 11:16 AM
--- NOTE | 2021-02-23 12:19 | Anesthesiology Progress Note ---
Date of Service February 23, 2021 Anesthesia Post Procedure Vital Signs Vital Signs: Temp Pulse Pulse Resp BP Pulse Ox Pulse Ox 02/23/21 12:05 53 L 16 106/57 L 98 02/23/21 11:55 52 L 16 97/54 L 96 02/23/21 11:45 53 L 16 95/54 L 96 02/23/21 11:35 51 L 12 95/55 L 100 02/23/21 11:25 52 L 12 88/47 L 100 02/23/21 11:17 36.2 C L 52 L 16 86/50 L 100 02/23/21 08:28 36.5 C 54 L 18 126/65 96 02/23/21 07:11 36.6 C 63 16 148/71 H 92 02/22/21 22:51 36.7 C 81 18 160/80 H 91 02/22/21 22:50 91 02/22/21 16:35 36.8 C 69 16 173/81 H 98 02/22/21 12:39 97 Pain Intensity Lower Back: Pain Intensity: 1 Transfer of Care Handoff Completed per policy Notes Mental Status: alert / awake / arousable Patient Amnestic to Procedure: Yes Nausea / Vomiting: adequately controlled Pain: adequately controlled Airway Patency, RR, SpO2: stable & adequate BP & HR: stable & adequate and see Notes below Hydration State: stable & adequate Anesthetic Complications: no major complications apparent and Pt Satisfied with anesthetic care Notes: The patient required albumin and pressors in the OR to maintain his blood pressure. He was slightly hypotensive in PACU and was given a bolus of crystal loid. SBP is now in the 100s. His other vital signs are stable. He is awake and comfortable.
[2021-02-23] MEDS ORDERED: bisacodyL 10 MG SUPP PR PRN (12:41)
[2021-02-23] MEDS ORDERED: SOD PHOSPHATE/SOD BIPHOSPHATE ENEMA 132 ML BTL PR PRN (12:41)
[2021-02-23] MEDS ORDERED: diphenhydrAMINE Capsule 25 MG CAP PO PRN (12:41)
[2021-02-23] MEDS ORDERED: PHARMACY GLYCEMIC MGMT CONSULT STA (12:41)
[2021-02-23] MEDS ORDERED: ONDANSETRON 4 MG OD TAB PO PRN (12:41)
[2021-02-23] MEDS ORDERED: LORazepam 0.5 MG/1 ML VIAL IV PRN (12:41)
[2021-02-23] MEDS ORDERED: hydrOXYzine HCl 25 MG TAB PO PRN (12:41)
[2021-02-23] MEDS ORDERED: ALUMINUM/MAGNESIUM SUSP 30 ML UDC PO PRN (12:41)
[2021-02-23] MEDS ORDERED: METOCLOPRAMIDE HCL INJ 5 MG/ML 2 ML VIAL IV PRN (12:41)
[2021-02-23] MEDS ORDERED: ACETAMINOPHEN 500 MG TAB PO PRN (12:41)
[2021-02-23] MEDS ORDERED: PROMETHAZINE HCL 12.5 MG in SODIUM CHLORIDE 0.9% 50 ML IV PRN (12:41)
[2021-02-23] MEDS ORDERED: DO NOT ADMINISTER PNEUMOCOCCAL VACCINE PRN (12:41)
[2021-02-23] MEDS ORDERED: NALOXONE HCL 0.4 MG/1 ML VIAL/CARP IV PRN (12:41)
[2021-02-23] MEDS ORDERED: FAMOTIDINE 20 MG TAB PO PRN (12:41)
[2021-02-23] MEDS ORDERED: DO NOT ADMINISTER FLU VACCINE PRN (12:41)
[2021-02-23] MEDS ORDERED: ACETAMINOPHEN 1,000 MG/100 ML VIAL IV PRN (12:41)
[2021-02-23] MEDS: LORazepam 0.5 MG TAB PO PRN (12:52)
[2021-02-23] MEDS: HYDROmorphone INJ 0.5 MG/0.5 ML SYR IV PRN ×3 (13:08→18:13)
[2021-02-23] MEDS: SODIUM CHLORIDE 0.9% 1000ML 1,000 ML IV SCH ×2 (13:17→19:43)
[2021-02-23] MEDS: PANTOprazole 40 MG TAB PO SCH (13:19)
[2021-02-23] MEDS: buPROPion XL 150 MG TABCR PO SCH (13:20)
[2021-02-23] MEDS: VENLAFAXINE HCL XR 150 MG CAPXR PO SCH (13:21)
[2021-02-23] MEDS: levoFLOXacin 500 MG TAB PO SCH (13:22)
[2021-02-23] MEDS: GLIMEPIRIDE 2 MG TAB PO SCH (13:37)
[2021-02-23] MEDS ORDERED: Nursing to Pharmacy Communication SCH (14:15)
--- NOTE | 2021-02-23 14:18 | Pharmacy Report ---
Pharmacy Glycemic Short Note 2 - Date of Service February 23, 2021 - Glycemic Short BSG Results (Last 24 hours): 02/22/21 02/23/21 02/23/21 17:24 00:05 05:41 Glucose 122 H POC Glucose 90 143 H 02/23/21 02/23/21 02/23/21 05:57 11:24 13:17 Glucose POC Glucose 127 H 147 H 135 H OUTPATIENT ANTIDIABETIC REGIMEN: * metformin/pioglitazone; glimepiride BID * A1c 6.4% 01/12/21 ASSESSMENT: * POD #0 I&D of lumbar spine; patient was NPO transitioned to type 2 DM diet after OR today * BSGs have been stable with sliding scale; will continue current novolog parameters (weight based stress of 2) * Will add basal scale for PM PLAN FOR INPATIENT GLYCEMIC CONTROL: * Hold outpatient oral diabetes medications * Basal insulin * Lantus 0-14 units this evening per scale * Bolus insulin * NovoLog per scale ACHS or Q6hrs while NPO * Goal Range: Low 110 mg/dL - High 140 mg/dL * Correction Factor: 30 mg/dL/unit * Nutritional / Prandial insulin per carb ratio of 1 unit per 10 grams CHO consumed PLAN FOR DISCHARGE: * A1c meets goal of <7%, can likely resume outpatient regimen if no new contraindications exist.
[2021-02-23] MEDS: traMADol HCL 50 MG TABLET PO PRN (17:33)
[2021-02-23] MEDS: CLINDAMYCIN 600 MG in DEXTROSE 5% 50 ML IV SCH (18:14)
[2021-02-23] MEDS ORDERED: INSULIN GLARGINE SOLOSTAR 100 UNITS/ML 3 ML PEN SC ONE (21:00)
[2021-02-23] MEDS: DOCUSATE SODIUM/SENNA 50/8.6MG TAB PO SCH (21:16)
[2021-02-23] MEDS: TRAVOPROST Z 0.004% OPH SOLN 2.5 ML BTL OP SCH (21:16)
[2021-02-24] MEDS: HYDROmorphone INJ 0.5 MG/0.5 ML SYR IV PRN ×4 (01:07→22:19)
[2021-02-24] MEDS: CLINDAMYCIN 600 MG in DEXTROSE 5% 50 ML IV SCH (01:08)
[2021-02-24] MEDS: SODIUM CHLORIDE 0.9% 1000ML 1,000 ML IV SCH (03:14)
[2021-02-24] MEDS: POLYETHYLENE (MIRALAX) 17 GM PACK PO SCH ×4 (06:00→23:14)
[2021-02-24 06:05] LABS: Basophils # (auto) 0.02 K/uL (0-0.2); Basophils % (auto) 0.3 %; Eosinophils # (auto) 0.04 K/uL (0-0.5); Eosinophils % (auto) 0.6 %; Hematocrit (blood only) 28.4 % (42-52); Hemoglobin 9.4 g/dL (14.0-18.0); Immature Granulocytes # (auto) 0.02 K/uL (0.00-0.02); Immature Granulocytes % (auto) 0.3 %; Lymphocytes # (auto) 1.02 K/uL (1.2-3.4); Lymphocytes % (auto) 14.8 %; Mean Corpuscular Hemoglobin 29.3 pg (25-34); Mean Corpuscular Hgb Conc 33.1 g/dL (32-36); Mean Corpuscular Volume 88.5 fL (80-100); Mean Platelet Volume 9.9 fL (7.4-10.4); Monocytes % (auto) 10.1 %; Neutrophils % (auto) 73.9 %; Platelet Count 143 K/uL (130-400); RDW Coefficient of Variation 16.1 % (11.5-14.5); RDW Standard Deviation 52.2 fL (36.4-46.3); Red Blood Count 3.21 M/uL (4.7-6.1)
[2021-02-24 06:44] LABS: BUN Creatinine Ratio 23.8 (10-20); Calcium 8.1 mg/dl (8.5-10.1); Creatinine Clr Calc Pharmacy 96.1 ml/min; Potassium 4.4 mmol/L (3.5-5.1)
[2021-02-24] MEDS ORDERED: Nursing to Pharmacy Communication SCH (07:45)
[2021-02-24] MEDS: INSULIN ASPART 100 UNITS/ML 3 ML PEN SC SCH ×4 (09:33→20:35)
[2021-02-24] MEDS: PANTOprazole 40 MG TAB PO SCH (09:39)
[2021-02-24] MEDS: amLODIPine BESYLATE 5 MG TAB PO SCH (09:39)
[2021-02-24] MEDS: VENLAFAXINE HCL XR 150 MG CAPXR PO SCH (09:39)
[2021-02-24] MEDS: buPROPion XL 150 MG TABCR PO SCH (09:40)
[2021-02-24] MEDS: LABETALOL HCL 200 MG TAB PO SCH ×2 (09:40→21:12)
[2021-02-24] MEDS: MAGNESIUM HYDROXIDE SUSP 30 ML UDC PO PRN (10:29)
[2021-02-24] MEDS: levoFLOXacin 500 MG TAB PO SCH (10:29)
--- NOTE | 2021-02-24 10:40 | Orthopedic Progress Note ---
Date of Service February 24, 2021 Assessment & Plan (1) Lumbar spinal stenosis: Admission and Anticipated Discharge Date Admission Date: February 22, 2021 We will initiate physical therapy today monitor his RUDY output hopefully discharge home this weekend. Subjective Back pain is improving. Leg pain improved. Physical Exam Physical Exam: Patient is good strength testing appears comfortable. Results & Data ([facility]) Vital Signs (Past 12 Hours) Vital Signs Temp Pulse Pulse Resp BP Pulse Ox 02/24/21 07:26 36.4 C L 80 18 130/71 94 02/24/21 03:06 36.9 C 83 18 113/62 95 02/23/21 23:19 36.6 C 92 H 16 107/61 97
--- NOTE | 2021-02-24 10:51 | Hospitalist Progress Note ---
Date of Service February 24, 2021 Assessment & Plan (1) Abnormal magnetic resonance imaging of lumbar spine: Mr. Edward is a 75 year old male with a history of Type 2 DM, Hypertension, ESTELLA, GERD, Chronic Urinary Retention(straight caths himself), Lumbar Spinal Stenosis s/p L3 through S1 Decompression and Fusion 01/28/21, complicated by a Post-Op Seroma who is now POD#1 from Surgical Re-exploration, I&D, and Revision of L- spine Fusion. Overall the patient is feeling well, although he requests to be repositioned as his surgical wound is sore from lying on his back. Otherwise his pain is controlled and his legs/radicular symptoms have improved. Appetite is at baseline, eating and drinking without issues. No bowel incontinence. Still has Weston catheter in place, but that can be D/C'ed and he can resume doing self straight caths. -- Ongoing pain management as per Orthopedic Surgery. -- Physical therapy ordered. -- Reposition patient for comfort, so he's not lying directly on his incision. (2) Controlled diabetes mellitus with chronic kidney disease: -- Stage III CKD. -- Patient is maintained on Pioglitazone-Metformin 15-850 mg b.i.d. and Glimepiride 1 mg b.i.d.. -- Hold the Metformin containing medication for the time being. -- BSG checks, convert to Sliding Scale Insulin while hospitalized. -- Most recent HgbA1c was 6.4% on 01/12/21. Creatinine was elevated on admission, but is now down to 0.80 mg/dl. -- Gentle IVF's. -- Monitor daily BMP. -- Hold Chlorthalidone. (3) Hypertension: -- BP appears to be well controlled. -- Continue Labetalol 200 mg b.i.d.. -- Continue Amlodipine 10 mg daily. -- Continue Losartan 100 mg daily. -- May resume Chlorthalidone if BP requires. (4) Urinary retention: Patient has a history of chronic urinary retention for which he straight catheterizes twice a day. He states that he has had 2 UTI's since his surgery 01/28/21 which manifested as urinary pressure, discolored and malodorous urine. He took a course of Cipro from Dr. Santos. More recently, his primary care physician Dr. Trinidad ordered Levaquin. He is remains on Levaquin. Received Urine Cx dated 02/19/21 which grew out Nivia albicans and Strep (not group D). Patient not having any signs or symptoms of UTI. This is not uncommon in patients who chronically straight cath -- only treat if symptomatic or if fever develops. (5) Obstructive sleep apnea: -- He uses CPAP set at 12.0 cmH2O. -- Continue CPAP. Admission and Anticipated Discharge Date Admission Date: February 22, 2021 Subjective Mr. Edward is a 75 year old male with a history of Type 2 DM, Hypertension, ESTELLA, GERD, Chronic Urinary Retention(straight caths himself), Lumbar Spinal Stenosis s/p L3 through S1 Decompression and Fusion 01/28/21, complicated by a Post-Op Seroma who is now POD#1 from Surgical Re-exploration, I&D, and Revision of L- spine Fusion. Overall the patient is feeling well, although he requests to be repositioned as his surgical wound is sore from lying on his back. Otherwise his pain is controlled and his legs/radicular symptoms have improved. Appetite is at baseline, eating and drinking without issues. No bowel incontinence. Still has Weston catheter in place, but that can be D/C'ed and he can resume doing self straight caths. He denies any chest pain, sob, dyspnea, cough, leg swelling, or calf pain. Physical Exam Physical Exam: GENERAL: Patient in no acute distress. HEENT: Head is atraumatic, normocephalic. EOM's intact. Facies symmetric. No perioral cyanosis. NECK: No JVD. JVP is not elevated. Carotid upstrokes are + 2 bilaterally. No bruits are noted. CHEST/LUNGS: Clear to auscultation throughout all lung rivera. No wheezes, rales, or crackles. CVS: S1 and S2 are regular without obvious murmurs, gallops, or rubs. PMI is nondisplaced. No lifts, heaves, or thrills. No abdominal aortic or renal bruits. ABDOMINAL EXAM: Bowel sounds are present. No masses, organomegaly, or tenderness. EXTREMITIES: No clubbing or cyanosis. No edema. Intact posterior tibial and radial pulses bilaterally. NEUROLOGIC EXAM: Patient is awake, alert, and oriented. Pleasant and cooperative. Answers questions appropriately. Speech is clear. Normal movement in all 4 extremities. Normal strength in major muscle groups of bilateral lower extremities. Gait pattern was not assessed. MUSCULOSKELETAL EXAM: L-spine surgical wound is dressed. RUDY drain in place. 455 mL output from RUDY drain. Results & Data Results & Data ([facility]) Vital Signs (Past 12 Hours) Vital Signs Temp Pulse Pulse Resp BP Pulse Ox 02/24/21 07:26 36.4 C L 80 18 130/71 94 02/24/21 03:06 36.9 C 83 18 113/62 95 02/23/21 23:19 36.6 C 92 H 16 107/61 97 Laboratory Results Laboratory Results - last 24 hr 02/23/21 02/23/21 02/23/21 11:24 13:17 17:01 WBC RBC Hgb Hct MCV MCH MCHC RDW Std Deviation RDW Coeff of Hector Plt Count MPV Immature Gran % (Auto) Neut % (Auto) Lymph % (Auto) Steele % (Auto) Eos % (Auto) Baso % (Auto) Neut # (Auto) Lymph # (Auto) Steele # (Auto) Eos # (Auto) Baso # (Auto) Immature Gran # (Auto) Sodium Potassium Chloride Carbon Dioxide Anion Gap BUN Creatinine Est Cr Clr Drug Dosing Est GFR ( Amer) Est GFR (Non-Af Amer) BUN/Creatinine Ratio Glucose POC Glucose 147 H 135 H 128 H Calcium 02/23/21 02/24/21 02/24/21 20:36 05:36 05:36 WBC 6.90 RBC 3.21 L Hgb 9.4 L Hct 28.4 L MCV 88.5 MCH 29.3 MCHC 33.1 RDW Std Deviation 52.2 H RDW Coeff of Hector 16.1 H Plt Count 143 MPV 9.9 Immature Gran % (Auto) 0.3 Neut % (Auto) 73.9 Lymph % (Auto) 14.8 Steele % (Auto) 10.1 Eos % (Auto) 0.6 Baso % (Auto) 0.3 Neut # (Auto) 5.10 Lymph # (Auto) 1.02 L Steele # (Auto) 0.70 H Eos # (Auto) 0.04 Baso # (Auto) 0.02 Immature Gran # (Auto) 0.02 Sodium 136 Potassium 4.4 Chloride 104 Carbon Dioxide 29 Anion Gap 3.0 BUN 19 H Creatinine 0.80 D Est Cr Clr Drug Dosing 96.1 Est GFR ( Amer) 102.0 Est GFR (Non-Af Amer) 88.0 BUN/Creatinine Ratio 23.8 H Glucose 115 H POC Glucose 104 H Calcium 8.1 L 02/24/21 08:09 WBC RBC Hgb Hct MCV MCH MCHC RDW Std Deviation RDW Coeff of Hector Plt Count MPV Immature Gran % (Auto) Neut % (Auto) Lymph % (Auto) Steele % (Auto) Eos % (Auto) Baso % (Auto) Neut # (Auto) Lymph # (Auto) Steele # (Auto) Eos # (Auto) Baso # (Auto) Immature Gran # (Auto) Sodium Potassium Chloride Carbon Dioxide Anion Gap BUN Creatinine Est Cr Clr Drug Dosing Est GFR ( Amer) Est GFR (Non-Af Amer) BUN/Creatinine Ratio Glucose POC Glucose 118 H Calcium Diagnostic Findings Fluoroscopy of L-Spine 02/23/21: FINDINGS: These images demonstrate interval L2-L3 and L3-L4 discectomies with interbody spacer placement. Pre-existing discectomies are noted. There is posterior decompression with bilateral pedicle screw fusion from L2 through S1. IMPRESSION: Fluoroscopy provided during L2-L3 and L3-L4 discectomies with posterior decompression and bilateral pedicle screw fusion, as above. Medications Administered Medications aspirin 81 mg tablet,delayed release 81 mg PO DAILY #90 tab 06/12/19 [Rx Confirmed 02/22/21] blood sugar diagnostic #200 ea 06/12/19 [Rx Confirmed 02/22/21] hydrocodone 5 mg-acetaminophen 325 mg tablet 1 tab PO QID PRN #120 tab 06/12/19 [Rx Confirmed 02/22/21] travoprost 0.004 % eye drops 1 drops OP QPM #5 ml 06/12/19 [Rx Confirmed 02/22/21] CPAP Machine #1 ea 08/22/19 [Rx Confirmed 02/22/21] albuterol sulfate 90 mcg/actuation breath activated powder inhaler 2 puffs INHALATION Q4H PRN #1 ea 09/30/19 [Rx Confirmed 02/22/21] glimepiride 1 mg tablet 1 mg PO BID #60 tab 07/30/20 [Rx Confirmed 02/22/21] mupirocin 2 % topical ointment 1 applic TOPICAL BID #15 g 08/13/20 [Rx Confirmed 02/22/21] valacyclovir 1 gram tablet 2,000 mg PO Q12H 1 Days #20 tab MDD cold sores 08/13/20 [Rx Confirmed 02/22/21] lansoprazole 30 mg capsule,delayed release 30 mg PO DAILY #30 cap 10/02/20 [Rx Confirmed 02/22/21] pioglitazone 15 mg-metformin 850 mg tablet 1 tab PO BID #180 tab 11/19/20 [Rx Confirmed 02/22/21] amlodipine 10 mg tablet 10 mg PO DAILY #30 tab 12/01/20 [Rx Confirmed 02/22/21] chlorthalidone 25 mg tablet 12.5 mg PO DAILY #45 tab 12/01/20 [Rx Confirmed 02/22/21] bupropion HCl 150 mg 24 hr tablet, extended release 450 mg PO QAM #90 tab 01/25/21 [Rx Confirmed 02/22/21] losartan 100 mg tablet 100 mg PO DAILY #30 tab 01/25/21 [Rx Confirmed 02/22/21] venlafaxine 150 mg capsule,extended release 24 hr 300 mg PO DAILY #60 cap 01/25/21 [Rx Confirmed 02/22/21] oxycodone 5 mg PO Q6H PRN #30 tab 01/29/21 [Rx Confirmed 02/22/21] tramadol 50 mg PO Q6H PRN #30 tab 01/29/21 [Rx Confirmed 02/22/21] labetalol 200 mg tablet 200 mg PO BID #180 tab 02/15/21 [Rx Confirmed 02/22/21] levofloxacin 500 mg tablet 500 mg PO DAILY 7 Days #7 tab 02/19/21 [Rx Confirmed 02/22/21] Home Medications Acetaminophen (Acetaminophen 500 Mg Tab) 1,000 mg PO Q8H RICCI Stop: 03/26/21 13:59 Al Hydrox/Mg Hydrox/Simethicone (Aluminum/Magnesium Susp 30 Ml Udc) 30 ml PO Q6H PRN PRN Reason: Dyspepsia Stop: 03/25/21 12:40 Amlodipine Besylate (Amlodipine Besylate 5 Mg Tab) 10 mg PO DAILY RICCI Stop: 03/25/21 08:59 Last Admin: 02/24/21 09:39 Dose: 10 mg Documented by: Bisacodyl (Bisacodyl 10 Mg Supp) 10 mg MT DAILY PRN PRN Reason: Constipation Stop: 03/25/21 12:40 Bupropion HCl (Bupropion Xl 150 Mg Tabcr) 450 mg PO QAM [facility] Stop: 03/25/21 08:59 Last Admin: 02/24/21 09:40 Dose: 450 mg Documented by: Dextrose (Dextrose 50% 50 Ml Syringe) 25 - 50 ml IV UD PRN; Protocol PRN Reason: Hypoglycemia Protocol Stop: 03/24/21 17:44 Diphenhydramine HCl (Diphenhydramine Capsule 25 Mg Cap) 25 mg PO Q6H PRN PRN Reason: Allergic Rhinitis/Insomnia Stop: 03/25/21 12:40 Famotidine (Famotidine 20 Mg Tab) 20 mg PO Q12H PRN PRN Reason: Dyspepsia Stop: 03/25/21 12:40 Glucagon (Glucagon For Inj 1 Mg Vial) 1 mg IM UD PRN; Protocol PRN Reason: Hypoglycemia Protocol Stop: 03/24/21 17:44 Glucose (Glucose 40% Gel 15 Gm Tube) 15 - 30 gm PO UD PRN; Protocol PRN Reason: Hypoglycemia Protocol Stop: 03/24/21 17:44 Glucose (Glucose 10 Tabs/Tube) 4 - 8 tabs PO UD PRN; Protocol PRN Reason: Hypoglycemia Protocol Stop: 03/24/21 17:44 Hydromorphone HCl (Hydromorphone Inj 0.5 Mg/0.5 Ml Syr) 0.5 - 1 mg IV Q3H PRN PRN Reason: MOD pain (scale 4-6) & Pre PT Stop: 03/08/21 12:05 Last Admin: 02/24/21 07:21 Dose: 1 mg Documented by: Hydroxyzine HCl (Hydroxyzine Hcl 25 Mg Tab) 25 mg PO Q8H PRN PRN Reason: Anxiety Stop: 03/25/21 12:40 Lorazepam (Ativan) 0.5 mg in 1 mls @ 0.5 mls/min IV Q8H PRN PRN Reason: Sedation/Anxiety Stop: 03/25/21 12:40 Last Admin: 02/23/21 19:44 Dose: 0.5 mls/min Documented by: Promethazine HCl 12.5 mg/ (Sodium Chloride) 50.5 mls @ 204 mls/hr IV Q6H PRN PRN Reason: Nausea &/or Vomiting Stop: 03/25/21 12:40 Influenza Virus Vaccine Quadrival (Do Not Administer Flu Vaccine) 1 ea N/A PRN PRN PRN Reason: Notification Stop: 03/25/21 12:40 Insulin Aspart (Insulin Aspart 100 Units/Ml 3 Ml Pen) 0 units SC ACHS [facility] Stop: 03/25/21 00:00 Last Admin: 02/24/21 09:33 Dose: 3 units Documented by: Labetalol HCl (Labetalol Hcl 200 Mg Tab) 200 mg PO BID [facility] Stop: 03/24/21 20:59 Last Admin: 02/24/21 09:40 Dose: 200 mg Documented by: Levofloxacin (Levofloxacin 500 Mg Tab) 500 mg PO DAILY@1100 [facility] Stop: 02/27/21 11:01 Last Admin: 02/24/21 10:29 Dose: 500 mg Documented by: Lorazepam (Lorazepam 0.5 Mg Tab) 0.5 mg PO Q8H PRN PRN Reason: Sedation/Anxiety Stop: 03/25/21 12:40 Last Admin: 02/23/21 12:52 Dose: 0.5 mg Documented by: Magnesium Hydroxide (Magnesium Hydroxide Susp 30 Ml Udc) 30 ml PO DAILY PRN PRN Reason: Constipation Stop: 03/25/21 12:40 Last Admin: 02/24/21 10:29 Dose: 30 ml Documented by: Metoclopramide HCl (Metoclopramide Hcl Inj 5 Mg/Ml 2 Ml Vial) 10 mg IV Q6H PRN PRN Reason: Nausea &/or Vomiting Stop: 03/25/21 12:40 Miscellaneous (Carbohydrates For Hypoglycemia ) 15 - 30 gm PO UD PRN PRN Reason: Hypoglycemia Treatment Stop: 03/24/21 17:44 Miscellaneous Information (Pharmacy Glycemic Mgmt Consult) 1 ea N/A UD PRN PRN Reason: Consult Stop: 03/24/21 17:15 Naloxone HCl (Naloxone Hcl 0.4 Mg/1 Ml Vial/Carp) 0.1 mg IV Q5M PRN; Protocol PRN Reason: Oversedation/Resp Depression Stop: 03/25/21 12:40 Ondansetron HCl (Ondansetron Inj 2 Mg/Ml 2 Ml Vial) 4 mg IV Q6H PRN PRN Reason: Nausea &/or Vomiting Stop: 03/25/21 12:40 Ondansetron HCl (Ondansetron 4 Mg Od Tab) 4 mg PO Q6H PRN PRN Reason: Nausea Stop: 03/25/21 12:40 Oxycodone HCl (Oxycodone Hcl Ir 5 Mg Tab (Immediate Release)) 5 - 10 mg PO Q4H PRN PRN Reason: mod to severe pain Stop: 03/08/21 12:05 Last Admin: 02/23/21 23:32 Dose: 10 mg Documented by: Pantoprazole Sodium (Pantoprazole 40 Mg Tab) 40 mg PO DAILY [facility] Stop: 03/25/21 08:59 Last Admin: 02/24/21 09:39 Dose: 40 mg Documented by: Pneumococcal Polyvalent Vaccine (Do Not Administer Pneumococcal Vaccine) 1 ea N/A PRN PRN PRN Reason: Notification Stop: 03/25/21 12:40 Polyethylene Glycol (Polyethylene (Miralax) 17 Gm Pack) 17 gm PO Q6 [facility] Stop: 03/26/21 05:59 Last Admin: 02/24/21 06:00 Dose: 17 gm Documented by: Senna/Docusate Sodium (Docusate Sodium/Senna 50/8.6mg Tab) 2 tab PO HS [facility] Stop: 03/25/21 20:59 Last Admin: 02/23/21 21:16 Dose: 2 tab Documented by: Sodium Biphosphate/Sodium Phosphate (Sod Phosphate/Sod Biphosphate Enema 132 Ml Btl) 132 ml MT ONE PRN PRN Reason: Constipation Stop: 03/25/21 12:40 Tramadol HCl (Tramadol Hcl 50 Mg Tablet) 50 - 100 mg PO Q4H PRN PRN Reason: Moderate-Severe Pain & Pre PT Stop: 03/25/21 12:40 Last Admin: 02/23/21 17:33 Dose: 100 mg Documented by: Travoprost (Travoprost Z 0.004% Oph Soln 2.5 Ml Btl) 1 drops OP QPM [facility] Stop: 03/24/21 20:59 Last Admin: 02/23/21 21:16 Dose: 1 drops Documented by: Venlafaxine HCl (Venlafaxine Hcl Xr 150 Mg Capxr) 300 mg PO DAILY [facility] Stop: 03/25/21 08:59 Last Admin: 02/24/21 09:39 Dose: 300 mg Documented by: PG Care Time/CCT Total # of Minutes Spent Total Time Spent with Patient: Total time spent is greater than 50% in coordination of care (as documented) at patient's floor/unit and/or counseling patient:30 Coding Level of Care Code 48068 Subseq Hosp Care Lvl 3 Diagnoses Abnormal magnetic resonance imaging of lumbar spine R93.7 Controlled diabetes mellitus with chronic kidney disease E11.22 Hypertension I10 Hypertension type: essential hypertension Urinary retention R33.9 Obstructive sleep apnea G47.33 Time Spent (min) 50 (1) Hypertension Hypertension type: essential hypertension Qualified Code(s): I10 - Essential (primary) hypertension
[2021-02-24] MEDS: oxyCODONE HCL IR 5 MG TAB (IMMEDIATE RELEASE) PO PRN ×3 (11:29→21:17)
[2021-02-24] MEDS ORDERED: SODIUM CHLORIDE 0.9% 1000ML 500 ML IV ONE ×2 (11:42→13:15)
[2021-02-24] MEDS ORDERED: BENZOCAINE 20% (ORAJEL) 11.9 GM TUBE MT PRN (11:56)
[2021-02-24] MEDS: ACETAMINOPHEN 500 MG TAB PO SCH ×2 (13:02→21:12)
[2021-02-24] MEDS: traMADol HCL 50 MG TABLET PO PRN (15:56)
[2021-02-24] MEDS: LORazepam 0.5 MG TAB PO PRN (17:11)
[2021-02-24] MEDS: DOCUSATE SODIUM/SENNA 50/8.6MG TAB PO SCH (21:12)
[2021-02-24] MEDS: TRAVOPROST Z 0.004% OPH SOLN 2.5 ML BTL OP SCH (21:13)
[2021-02-25] MEDS: ACETAMINOPHEN 500 MG TAB PO SCH ×3 (05:34→21:25)
[2021-02-25] MEDS: POLYETHYLENE (MIRALAX) 17 GM PACK PO SCH ×4 (05:34→23:04)
[2021-02-25] MEDS: oxyCODONE HCL IR 5 MG TAB (IMMEDIATE RELEASE) PO PRN ×3 (06:00→18:47)
[2021-02-25] MEDS: HYDROmorphone INJ 0.5 MG/0.5 ML SYR IV PRN (07:30)
--- NOTE | 2021-02-25 08:31 | Orthopedic Progress Note ---
Date of Service February 25, 2021 Assessment & Plan (1) Lumbar spinal stenosis: Admission and Anticipated Discharge Date Admission Date: February 22, 2021 At this time he is struggling quite a bit with transitions bed to chair but they are walking. Like to give him a bit of Decadron to help with inflammation. We will continue with physical therapy as tolerated. We will assess his progress over the next day or so hopefully return home Monday. Subjective Back pain controlled leg pain improved Physical Exam Physical Exam: On exam he is in the bed. Is good strength testing. Results & Data ([facility]) Vital Signs (Past 12 Hours) Vital Signs Temp Pulse Resp BP Pulse Ox 02/25/21 07:43 36.5 C 63 16 97/57 L 92 02/24/21 22:29 36.5 C 71 19 108/63 90 02/24/21 21:10 73 126/67 92
[2021-02-25] MEDS: buPROPion XL 150 MG TABCR PO SCH (08:44)
[2021-02-25] MEDS: LABETALOL HCL 200 MG TAB PO SCH ×2 (08:44→21:25)
[2021-02-25] MEDS: VENLAFAXINE HCL XR 150 MG CAPXR PO SCH (08:44)
[2021-02-25] MEDS: PANTOprazole 40 MG TAB PO SCH (08:44)
[2021-02-25] MEDS: INSULIN ASPART 100 UNITS/ML 3 ML PEN SC SCH ×4 (08:45→21:16)
[2021-02-25] MEDS: dexAMETHasone 8 MG in SYRINGE 0 ML IV SCH (09:06)
--- NOTE | 2021-02-25 09:42 | Hospitalist Progress Note ---
Date of Service February 25, 2021 Assessment & Plan (1) Abnormal magnetic resonance imaging of lumbar spine: Mr. Edward is a 75 year old male with a history of Type 2 DM, Hypertension, ESTELLA, GERD, Chronic Urinary Retention(straight caths himself), Lumbar Spinal Stenosis s/p L3 through S1 Decompression and Fusion 01/28/21, complicated by a Post-Op Seroma who is now POD#2 from Surgical Re-exploration, I&D, and Revision of L- spine Fusion. Overall his back pain is marginally controlled but his legs/radicular symptoms remain improved. Unfortunately, the patient was hypotensive and lightheaded beginning yesterday afternoon into the evening - which has limited the amount of opiates he has received. He remains hypotensive today, but denies any lightheadedness, dizziness, or weakness. Appetite is at baseline, eating and drinking without issues. No bowel incontinence. He denies any chest pain, sob, dyspnea, cough, leg swelling, or calf pain. He just finished ambulating in the hallway with physical therapy and did well with it. -- Ongoing pain management as per Orthopedic Surgery. -- PT as ordered. -- CBC with diff daily. -- BMP daily. (2) Controlled diabetes mellitus with chronic kidney disease: -- Stage III CKD. -- Patient is maintained on Pioglitazone-Metformin 15-850 mg b.i.d. and Glimepiride 1 mg b.i.d.. -- Hold the Metformin containing medication for the time being. -- BSG checks, continue Sliding Scale Insulin while hospitalized. -- Most recent HgbA1c was 6.4% on 01/12/21. -- BMP ordered. (3) Hypertension: Patient has been borderline Hypotensive over the past 18 to 20 hours -- Continue Labetalol 200 mg b.i.d.. -- Hold Amlodipine. -- Hold Losartan. -- Hold Chlorthalidone. -- IV NSS x 1000 mL at 250 ml/hr. -- Recheck orthostatic VS after this fluid bolus. (4) Urinary retention: Patient has a history of chronic urinary retention for which he straight catheterizes twice a day. He states that he has had 2 UTI's since his surgery 01/28/21 which manifested as urinary pressure, discolored and malodorous urine. He took a course of Cipro from Dr. Santos. More recently, his primary care physician Dr. Trinidad ordered Levaquin. He is remains on Levaquin. Received Urine Cx dated 02/19/21 which grew out Nivia albicans and Strep (not group D). Patient not having any signs or symptoms of UTI. This is not uncommon in patients who chronically straight cath -- only treat if symptomatic or if fever develops. (5) Obstructive sleep apnea: -- He uses CPAP set at 12.0 cmH2O. -- Continue CPAP. Admission and Anticipated Discharge Date Admission Date: February 22, 2021 Subjective Mr. Edward is a 75 year old male with a history of Type 2 DM, Hypertension, ESTELLA, GERD, Chronic Urinary Retention(straight caths himself), Lumbar Spinal Stenosis s/p L3 through S1 Decompression and Fusion 01/28/21, complicated by a Post-Op Seroma who is now POD#2 from Surgical Re-exploration, I&D, and Revision of L- spine Fusion. Overall his back pain is marginally controlled but his legs/radicular symptoms remain improved. Unfortunately, the patient hypotensive and lightheaded beginning yesterday afternoon into the evening - which has limited the amount of opiates he has received. He remains hypotensive today, but denies any lightheadedness, dizziness, or weakness. Currently, his amlodipine, chlorthalidone, and losartan are on hold. Appetite is at baseline, eating and drinking without issues. No bowel incontinence. He denies any chest pain, sob, dyspnea, cough, leg swelling, or calf pain. He just finished ambulating in the hallway with physical therapy and did well with it. Review of Systems Review of Systems: All systems reviewed & are unremarkable except as noted in Subjective Physical Exam Physical Exam: Orthostatic SBP readings are 108 mmHg lying, 89 mmHg seated, and 97 mmHg standing. GENERAL: Patient in no acute distress. HEENT: Head is atraumatic, normocephalic. EOM's intact. Facies symmetric. No perioral cyanosis. NECK: No JVD. JVP is not elevated. Carotid upstrokes are + 2 bilaterally. No bruits are noted. CHEST/LUNGS: Clear to auscultation throughout all lung rivera. No wheezes, rales, or crackles. CVS: S1 and S2 are regular without obvious murmurs, gallops, or rubs. PMI is nondisplaced. No lifts, heaves, or thrills. No abdominal aortic or renal bruits. ABDOMINAL EXAM: Bowel sounds are present. No masses, organomegaly, or tenderness. EXTREMITIES: No clubbing or cyanosis. No edema. Intact posterior tibial and radial pulses bilaterally. NEUROLOGIC EXAM: Patient is awake, alert, and oriented. Pleasant and cooperative. Answers questions appropriately. Speech is clear. Normal movement in all 4 extremities. Normal strength in major muscle groups of bilateral lower extremities. Gait pattern was not assessed. MUSCULOSKELETAL EXAM: L-spine surgical wound is dressed. RUDY drain in place. 210 mL output from RUDY drain in the past 24 hours. Results & Data Results & Data ([facility]) Vital Signs (Past 12 Hours) Vital Signs Temp Pulse Resp BP Pulse Ox 02/25/21 07:43 36.5 C 63 16 97/57 L 92 02/24/21 22:29 36.5 C 71 19 108/63 90 Laboratory Results Laboratory Results - last 24 hr 02/24/21 02/24/21 02/24/21 12:03 17:23 20:29 POC Glucose 112 H 113 H 101 H 02/25/21 08:16 POC Glucose 146 H Medications Administered Medications aspirin 81 mg tablet,delayed release 81 mg PO DAILY #90 tab 06/12/19 [Rx Confirmed 02/22/21] blood sugar diagnostic #200 ea 06/12/19 [Rx Confirmed 02/22/21] hydrocodone 5 mg-acetaminophen 325 mg tablet 1 tab PO QID PRN #120 tab 06/12/19 [Rx Confirmed 02/22/21] travoprost 0.004 % eye drops 1 drops OP QPM #5 ml 06/12/19 [Rx Confirmed 02/22/21] CPAP Machine #1 ea 08/22/19 [Rx Confirmed 02/22/21] albuterol sulfate 90 mcg/actuation breath activated powder inhaler 2 puffs INHALATION Q4H PRN #1 ea 09/30/19 [Rx Confirmed 02/22/21] glimepiride 1 mg tablet 1 mg PO BID #60 tab 07/30/20 [Rx Confirmed 02/22/21] mupirocin 2 % topical ointment 1 applic TOPICAL BID #15 g 08/13/20 [Rx Confirmed 02/22/21] valacyclovir 1 gram tablet 2,000 mg PO Q12H 1 Days #20 tab MDD cold sores 08/13/20 [Rx Confirmed 02/22/21] lansoprazole 30 mg capsule,delayed release 30 mg PO DAILY #30 cap 10/02/20 [Rx Confirmed 02/22/21] pioglitazone 15 mg-metformin 850 mg tablet 1 tab PO BID #180 tab 11/19/20 [Rx Confirmed 02/22/21] amlodipine 10 mg tablet 10 mg PO DAILY #30 tab 12/01/20 [Rx Confirmed 02/22/21] chlorthalidone 25 mg tablet 12.5 mg PO DAILY #45 tab 12/01/20 [Rx Confirmed 02/22/21] bupropion HCl 150 mg 24 hr tablet, extended release 450 mg PO QAM #90 tab 01/25/21 [Rx Confirmed 02/22/21] losartan 100 mg tablet 100 mg PO DAILY #30 tab 01/25/21 [Rx Confirmed 02/22/21] venlafaxine 150 mg capsule,extended release 24 hr 300 mg PO DAILY #60 cap 01/25/21 [Rx Confirmed 02/22/21] oxycodone 5 mg PO Q6H PRN #30 tab 01/29/21 [Rx Confirmed 02/22/21] tramadol 50 mg PO Q6H PRN #30 tab 01/29/21 [Rx Confirmed 02/22/21] labetalol 200 mg tablet 200 mg PO BID #180 tab 02/15/21 [Rx Confirmed 02/22/21] levofloxacin 500 mg tablet 500 mg PO DAILY 7 Days #7 tab 02/19/21 [Rx Confirmed 02/22/21] oxycodone 5 mg PO Q6H PRN #30 tab 02/24/21 [Rx] tramadol 50 mg PO Q6H PRN #30 tab 02/24/21 [Rx] Home Medications Acetaminophen (Acetaminophen 500 Mg Tab) 1,000 mg PO Q8H [facility] Stop: 03/26/21 13:59 Last Admin: 02/25/21 05:34 Dose: 1,000 mg Documented by: Al Hydrox/Mg Hydrox/Simethicone (Aluminum/Magnesium Susp 30 Ml Udc) 30 ml PO Q6H PRN PRN Reason: Dyspepsia Stop: 03/25/21 12:40 Amlodipine Besylate (Amlodipine Besylate 5 Mg Tab) 10 mg PO DAILY RICCI Stop: 03/25/21 08:59 Last Admin: 02/24/21 09:39 Dose: 10 mg Documented by: Benzocaine (Benzocaine 20% (Orajel) 11.9 Gm Tube) 1 appln MT QID PRN PRN Reason: canker sore lower lip as needed Stop: 03/26/21 11:55 Last Admin: 02/24/21 13:16 Dose: 1 appln Documented by: Bisacodyl (Bisacodyl 10 Mg Supp) 10 mg NH DAILY PRN PRN Reason: Constipation Stop: 03/25/21 12:40 Bupropion HCl (Bupropion Xl 150 Mg Tabcr) 450 mg PO QAM [facility] Stop: 03/25/21 08:59 Last Admin: 02/25/21 08:44 Dose: 450 mg Documented by: Dextrose (Dextrose 50% 50 Ml Syringe) 25 - 50 ml IV UD PRN; Protocol PRN Reason: Hypoglycemia Protocol Stop: 03/24/21 17:44 Diphenhydramine HCl (Diphenhydramine Capsule 25 Mg Cap) 25 mg PO Q6H PRN PRN Reason: Allergic Rhinitis/Insomnia Stop: 03/25/21 12:40 Famotidine (Famotidine 20 Mg Tab) 20 mg PO Q12H PRN PRN Reason: Dyspepsia Stop: 03/25/21 12:40 Glucagon (Glucagon For Inj 1 Mg Vial) 1 mg IM UD PRN; Protocol PRN Reason: Hypoglycemia Protocol Stop: 03/24/21 17:44 Glucose (Glucose 40% Gel 15 Gm Tube) 15 - 30 gm PO UD PRN; Protocol PRN Reason: Hypoglycemia Protocol Stop: 03/24/21 17:44 Glucose (Glucose 10 Tabs/Tube) 4 - 8 tabs PO UD PRN; Protocol PRN Reason: Hypoglycemia Protocol Stop: 03/24/21 17:44 Hydromorphone HCl (Hydromorphone Inj 0.5 Mg/0.5 Ml Syr) 0.5 - 1 mg IV Q3H PRN PRN Reason: MOD pain (scale 4-6) & Pre PT Stop: 03/08/21 12:05 Last Admin: 02/25/21 07:30 Dose: 1 mg Documented by: Hydroxyzine HCl (Hydroxyzine Hcl 25 Mg Tab) 25 mg PO Q8H PRN PRN Reason: Anxiety Stop: 03/25/21 12:40 Lorazepam (Ativan) 0.5 mg in 1 mls @ 0.5 mls/min IV Q8H PRN PRN Reason: Sedation/Anxiety Stop: 03/25/21 12:40 Last Admin: 02/23/21 19:44 Dose: 0.5 mls/min Documented by: Promethazine HCl 12.5 mg/ (Sodium Chloride) 50.5 mls @ 204 mls/hr IV Q6H PRN PRN Reason: Nausea &/or Vomiting Stop: 03/25/21 12:40 Dexamethasone 8 mg/ Syringe 2 mls @ 1 mls/min IV DAILY@0900 [facility] Stop: 03/27/21 08:59 Last Admin: 02/25/21 09:06 Dose: 1 mls/min Documented by: Sodium Chloride (Nss 1000ml) 1,000 mls @ 250 mls/hr IV .Q4H [facility] Stop: 02/25/21 13:44 Influenza Virus Vaccine Quadrival (Do Not Administer Flu Vaccine) 1 ea N/A PRN PRN PRN Reason: Notification Stop: 03/25/21 12:40 Insulin Aspart (Insulin Aspart 100 Units/Ml 3 Ml Pen) 0 units SC ACHS [facility] Stop: 03/25/21 00:00 Last Admin: 02/25/21 08:45 Dose: 2 units Documented by: Labetalol HCl (Labetalol Hcl 200 Mg Tab) 200 mg PO BID [facility] Stop: 03/24/21 20:59 Last Admin: 02/25/21 08:44 Dose: 200 mg Documented by: Levofloxacin (Levofloxacin 500 Mg Tab) 500 mg PO DAILY@1100 [facility] Stop: 02/27/21 11:01 Last Admin: 02/24/21 10:29 Dose: 500 mg Documented by: Lorazepam (Lorazepam 0.5 Mg Tab) 0.5 mg PO Q8H PRN PRN Reason: Sedation/Anxiety Stop: 03/25/21 12:40 Last Admin: 02/24/21 17:11 Dose: 0.5 mg Documented by: Magnesium Hydroxide (Magnesium Hydroxide Susp 30 Ml Udc) 30 ml PO DAILY PRN PRN Reason: Constipation Stop: 03/25/21 12:40 Last Admin: 02/24/21 10:29 Dose: 30 ml Documented by: Metoclopramide HCl (Metoclopramide Hcl Inj 5 Mg/Ml 2 Ml Vial) 10 mg IV Q6H PRN PRN Reason: Nausea &/or Vomiting Stop: 03/25/21 12:40 Miscellaneous (Carbohydrates For Hypoglycemia ) 15 - 30 gm PO UD PRN PRN Reason: Hypoglycemia Treatment Stop: 03/24/21 17:44 Miscellaneous Information (Pharmacy Glycemic Mgmt Consult) 1 ea N/A UD PRN PRN Reason: Consult Stop: 03/24/21 17:15 Naloxone HCl (Naloxone Hcl 0.4 Mg/1 Ml Vial/Carp) 0.1 mg IV Q5M PRN; Protocol PRN Reason: Oversedation/Resp Depression Stop: 03/25/21 12:40 Ondansetron HCl (Ondansetron Inj 2 Mg/Ml 2 Ml Vial) 4 mg IV Q6H PRN PRN Reason: Nausea &/or Vomiting Stop: 03/25/21 12:40 Ondansetron HCl (Ondansetron 4 Mg Od Tab) 4 mg PO Q6H PRN PRN Reason: Nausea Stop: 03/25/21 12:40 Oxycodone HCl (Oxycodone Hcl Ir 5 Mg Tab (Immediate Release)) 5 - 10 mg PO Q4H PRN PRN Reason: mod to severe pain Stop: 03/08/21 12:05 Last Admin: 02/25/21 06:00 Dose: 10 mg Documented by: Pantoprazole Sodium (Pantoprazole 40 Mg Tab) 40 mg PO DAILY [facility] Stop: 03/25/21 08:59 Last Admin: 02/25/21 08:44 Dose: 40 mg Documented by: Pneumococcal Polyvalent Vaccine (Do Not Administer Pneumococcal Vaccine) 1 ea N/A PRN PRN PRN Reason: Notification Stop: 03/25/21 12:40 Polyethylene Glycol (Polyethylene (Miralax) 17 Gm Pack) 17 gm PO Q6 [facility] Stop: 03/26/21 05:59 Last Admin: 02/25/21 05:34 Dose: 17 gm Documented by: Senna/Docusate Sodium (Docusate Sodium/Senna 50/8.6mg Tab) 2 tab PO HS [facility] Stop: 03/25/21 20:59 Last Admin: 02/24/21 21:12 Dose: 2 tab Documented by: Sodium Biphosphate/Sodium Phosphate (Sod Phosphate/Sod Biphosphate Enema 132 Ml Btl) 132 ml NH ONE PRN PRN Reason: Constipation Stop: 03/25/21 12:40 Tramadol HCl (Tramadol Hcl 50 Mg Tablet) 50 - 100 mg PO Q4H PRN PRN Reason: Moderate-Severe Pain & Pre PT Stop: 03/25/21 12:40 Last Admin: 02/24/21 15:56 Dose: 100 mg Documented by: Travoprost (Travoprost Z 0.004% Oph Soln 2.5 Ml Btl) 1 drops OP QPM [facility] Stop: 03/24/21 20:59 Last Admin: 02/24/21 21:13 Dose: 1 drops Documented by: Venlafaxine HCl (Venlafaxine Hcl Xr 150 Mg Capxr) 300 mg PO DAILY [facility] Stop: 03/25/21 08:59 Last Admin: 02/25/21 08:44 Dose: 300 mg Documented by: PG Care Time/CCT Total # of Minutes Spent Total Time Spent with Patient: Total time spent is greater than 50% in coordination of care (as documented) at patient's floor/unit and/or counseling patient:45 Coding Level of Care Code 87054 Subseq Hosp Care Lvl 3 Diagnoses Abnormal magnetic resonance imaging of lumbar spine R93.7 Controlled diabetes mellitus with chronic kidney disease E11.22 Hypertension I10 Hypertension type: essential hypertension Urinary retention R33.9 Obstructive sleep apnea G47.33 (1) Hypertension Hypertension type: essential hypertension Qualified Code(s): I10 - Essential (primary) hypertension
[2021-02-25] MEDS ORDERED: SODIUM CHLORIDE 0.9% 1000ML 1,000 ML IV SCH (09:45)
[2021-02-25] MEDS ORDERED: NovoLIN-N (NPH) PER UNIT CHARGE SQ ONE (09:45)
--- NOTE | 2021-02-25 10:54 | Pharmacy Report ---
Pharmacy Glycemic Short Note 2 - Date of Service February 25, 2021 - Glycemic Short BSG Results (Last 24 hours): 02/24/21 02/24/21 02/24/21 12:03 17:23 20:29 POC Glucose 112 H 113 H 101 H 02/25/21 08:16 POC Glucose 146 H OUTPATIENT ANTIDIABETIC REGIMEN: * metformin/pioglitazone; glimepiride BID * A1c 6.4% 01/12/21 ASSESSMENT: 02/25/21 * POD 2 * Blood sugars well controlled, 101-146mg/dl, only had 7 units of insulin in last 24 hours, all bolus * Patient receiving Dexamethasone 8mg IV today - will add NPH to cover * Tighten CF/CR for steroid effects 02/23/21 * POD #0 I&D of lumbar spine; patient was NPO transitioned to type 2 DM diet after OR today * BSGs have been stable with sliding scale; will continue current novolog parameters (weight based stress of 2) * Will add basal scale for PM PLAN FOR INPATIENT GLYCEMIC CONTROL: * Hold outpatient oral diabetes medications * Basal insulin * NPH 20 units today with IV Dexamethasone * Bolus insulin * NovoLog per scale ACHS or Q6hrs while NPO * Goal Range: Low 110 mg/dL - High 140 mg/dL * TIGHTEN: Correction Factor: 25 mg/dL/unit * TIGHTEN: Nutritional / Prandial insulin per carb ratio of 1 unit per 7 gr ams CHO consumed PLAN FOR DISCHARGE: * A1c meets goal of <7%, can likely resume outpatient regimen if no new contraindications exist.
[2021-02-25] MEDS: levoFLOXacin 500 MG TAB PO SCH (11:20)
[2021-02-25] MEDS: DOCUSATE SODIUM/SENNA 50/8.6MG TAB PO SCH (21:25)
[2021-02-25] MEDS: TRAVOPROST Z 0.004% OPH SOLN 2.5 ML BTL OP SCH (21:26)
[2021-02-26] MEDS: ACETAMINOPHEN 500 MG TAB PO SCH (05:43)
[2021-02-26] MEDS: POLYETHYLENE (MIRALAX) 17 GM PACK PO SCH ×2 (05:43→11:21)
[2021-02-26 05:47] LABS: Hemoglobin 8.9 g/dL (14.0-18.0); Immature Granulocytes # (auto) 0.03 K/uL (0.00-0.02); Immature Granulocytes % (auto) 0.4 %; Lymphocytes # (auto) 0.63 K/uL (1.2-3.4); Lymphocytes % (auto) 7.9 %; Mean Corpuscular Hemoglobin 29.4 pg (25-34); Mean Corpuscular Volume 89.1 fL (80-100); Mean Platelet Volume 10.6 fL (7.4-10.4); Monocytes # (auto) 0.74 K/uL (0.11-0.59); Monocytes % (auto) 9.3 %; Neutrophils % (auto) 82.4 %; Platelet Count 164 K/uL (130-400); RDW Coefficient of Variation 16.2 % (11.5-14.5); RDW Standard Deviation 52.4 fL (36.4-46.3); Red Blood Count 3.03 M/uL (4.7-6.1)
[2021-02-26] MEDS: oxyCODONE HCL IR 5 MG TAB (IMMEDIATE RELEASE) PO PRN ×2 (05:48→11:20)
[2021-02-26 06:23] LABS: BUN Creatinine Ratio 25.1 (10-20); Calcium 8.9 mg/dl (8.5-10.1); Creatinine Clr Calc Pharmacy 71.8 ml/min; Est GFR (African American) 78.8; Potassium 4.4 mmol/L (3.5-5.1)
[2021-02-26] MEDS: MAGNESIUM HYDROXIDE SUSP 30 ML UDC PO PRN (07:29)
[2021-02-26] MEDS: LABETALOL HCL 200 MG TAB PO SCH (08:46)
[2021-02-26] MEDS: buPROPion XL 150 MG TABCR PO SCH (08:46)
[2021-02-26] MEDS: dexAMETHasone 8 MG in SYRINGE 0 ML IV SCH (08:46)
[2021-02-26] MEDS: VENLAFAXINE HCL XR 150 MG CAPXR PO SCH (08:47)
[2021-02-26] MEDS: PANTOprazole 40 MG TAB PO SCH (08:47)
[2021-02-26] MEDS: INSULIN ASPART 100 UNITS/ML 3 ML PEN SC SCH (08:58)
[2021-02-26] MEDS ORDERED: NovoLIN-N (NPH) PER UNIT CHARGE SQ ONE (09:00)
--- NOTE | 2021-02-26 09:57 | Hospitalist Progress Note ---
Date of Service February 26, 2021 Assessment & Plan (1) Abnormal magnetic resonance imaging of lumbar spine: Mr. Edward is a 75 year old male with a history of Type 2 DM, Hypertension, ESTELLA, GERD, Chronic Urinary Retention(straight caths himself), Lumbar Spinal Stenosis s/p L3 through S1 Decompression and Fusion 01/28/21, complicated by a Post-Op Seroma who is now POD#3 from Surgical Re-exploration, I&D, and Revision of L- spine Fusion. His back pain is much better controlled and his legs/radicular symptoms remain improved. Unfortunately, the patient hypotensive over the past 2 days, and yesterday had orthostatic hypotension --- so he received IVF's. His amlodipine, chlorthalidone, and losartan remain on hold. His BP's have subsequently improved. Patient offers no complaints and is pleased with his improvement over the past 24 hours. -- Ongoing pain management as per Orthopedic Surgery. -- Continue PT. -- Monitor daily CBC with diff - patient is anemic with a Hgb of 8.9 gm/dl this a.m. -- Monitor daily BMP. -- DVT prophylaxis with Lovenox. (2) Controlled diabetes mellitus with chronic kidney disease: -- Stage III CKD -- his Creatinine is up to 1.07 mg/dl from 0.8 mg/dl yesterday. -- Patient is maintained on Pioglitazone-Metformin 15-850 mg b.i.d. and Glimepiride 1 mg b.i.d.. -- Hold the Metformin containing medication for the time being. -- BSG checks, continue Sliding Scale Insulin while hospitalized. -- Most recent HgbA1c was 6.4% on 01/12/21. -- BMP ordered. (3) Hypertension: Patient has been borderline Hypotensive over the previous 2 days -- but BP's have improved following IVF's and holding anti-hypertensives. -- Continue Labetalol 200 mg b.i.d.. -- Continue holding Amlodipine may resume when SBP is consistently = or > 130 mmHg. -- Continue holding Losartan. -- Continue holding Chlorthalidone. -- IV NSS x 1000 mL at 250 ml/hr given yesterday. -- BP's have improved. (4) Urinary retention: Patient has a history of chronic urinary retention for which he straight catheterizes twice a day. He states that he has had 2 UTI's since his surgery 01/28/21 which manifested as urinary pressure, discolored and malodorous urine. He took a course of Cipro from Dr. Santos. More recently, his primary care physician Dr. Trinidad ordered Levaquin. He is remains on Levaquin. Received Urine Cx dated 02/19/21 which grew out Nivia albicans and Strep (not group D). Patient not having any signs or symptoms of UTI. This is not uncommon in patients who chronically straight cath -- only treat if symptomatic or if fever develops. (5) Obstructive sleep apnea: -- He uses CPAP set at 12.0 cmH2O. -- Continue CPAP. Admission and Anticipated Discharge Date Admission Date: February 22, 2021 Subjective Mr. Edward is a 75 year old male with a history of Type 2 DM, Hypertension, ESTELLA, GERD, Chronic Urinary Retention(straight caths himself), Lumbar Spinal Stenosis s/p L3 through S1 Decompression and Fusion 01/28/21, complicated by a Post-Op Seroma who is now POD#3 from Surgical Re-exploration, I&D, and Revision of L- spine Fusion. His back pain is much better controlled and his legs/radicular symptoms remain improved. Unfortunately, the patient hypotensive over the past 2 days, and yesterday had orthostatic hypotension --- so he received IVF's. His amlodipine, chlorthalidone, and losartan remain on hold. His BP's have subsequently improved. Appetite is at baseline, eating and drinking without issues. No bowel movement yet, but he is passing flatus. No abdominal pain or cramping. No bloating. Patient offers no complaints and is pleased with his improvement over the past 24 hours. He denies any chest pain, sob, dyspnea, cough, leg swelling, or calf pain. He is ambulating in the hallway -- using a wheeled walker, but getting around very well. Review of Systems Review of Systems: All systems reviewed & are unremarkable except as noted in Subjective Physical Exam Physical Exam: BP since yesterday early afternoon ranging between 113/55 to 146/62. GENERAL: Patient in no acute distress. HEENT: Head is atraumatic, normocephalic. EOM's intact. Facies symmetric. No perioral cyanosis. NECK: No JVD. JVP is not elevated. Carotid upstrokes are + 2 bilaterally. No bruits are noted. CHEST/LUNGS: Clear to auscultation throughout all lung rivera. No wheezes, rales, or crackles. CVS: S1 and S2 are regular without obvious murmurs, gallops, or rubs. PMI is nondisplaced. No lifts, heaves, or thrills. No abdominal aortic or renal bruits. ABDOMINAL EXAM: Bowel sounds are present. No masses, organomegaly, or tenderness. EXTREMITIES: No clubbing or cyanosis. No edema. Intact posterior tibial and radial pulses bilaterally. NEUROLOGIC EXAM: Patient is awake, alert, and oriented. Pleasant and cooperative. Answers questions appropriately. Speech is clear. Normal movement in all 4 extremities. Gait pattern - patient ambulated in the hallway with a wheeled walker, appears to be stable as he walks.. MUSCULOSKELETAL EXAM: L-spine surgical wound is dressed. RUDY drain in place. 40 mL output from RUDY drain in the past 24 hours. Results & Data Results & Data ([facility]) Vital Signs (Past 12 Hours) Vital Signs Temp Pulse Resp BP Pulse Ox 02/26/21 07:52 36.5 C 62 18 113/55 L 97 02/25/21 22:27 36.6 C 72 18 113/64 90 Laboratory Results Laboratory Results - last 24 hr 02/25/21 02/25/21 02/25/21 12:23 17:20 20:33 WBC RBC Hgb Hct MCV MCH MCHC RDW Std Deviation RDW Coeff of Hector Plt Count MPV Immature Gran % (Auto) Neut % (Auto) Lymph % (Auto) [place] % (Auto) Eos % (Auto) Baso % (Auto) Neut # (Auto) Lymph # (Auto) [place] # (Auto) Eos # (Auto) Baso # (Auto) Immature Gran # (Auto) Sodium Potassium Chloride Carbon Dioxide Anion Gap BUN Creatinine Est Cr Clr Drug Dosing Est GFR ( Amer) Est GFR (Non-Af Amer) BUN/Creatinine Ratio Glucose POC Glucose 152 H 116 H 138 H Calcium 02/26/21 02/26/21 02/26/21 05:23 05:23 08:11 WBC 8.00 RBC 3.03 L Hgb 8.9 L Hct 27.0 L MCV 89.1 MCH 29.4 MCHC 33.0 RDW Std Deviation 52.4 H RDW Coeff of Hector 16.2 H Plt Count 164 MPV 10.6 H Immature Gran % (Auto) 0.4 Neut % (Auto) 82.4 Lymph % (Auto) 7.9 [place] % (Auto) 9.3 Eos % (Auto) 0.0 Baso % (Auto) 0.0 Neut # (Auto) 6.60 H Lymph # (Auto) 0.63 L [place] # (Auto) 0.74 H Eos # (Auto) 0.00 Baso # (Auto) 0.00 Immature Gran # (Auto) 0.03 H Sodium 134 L Potassium 4.4 Chloride 103 Carbon Dioxide 25 Anion Gap 6.0 BUN 27 H Creatinine 1.07 Est Cr Clr Drug Dosing 71.8 Est GFR ( Amer) 78.8 Est GFR (Non-Af Amer) 68.0 BUN/Creatinine Ratio 25.1 H Glucose 140 H POC Glucose 149 H Calcium 8.9 Medications Administered Medications aspirin 81 mg tablet,delayed release 81 mg PO DAILY #90 tab 06/12/19 [Rx Confirmed 02/22/21] blood sugar diagnostic #200 ea 06/12/19 [Rx Confirmed 02/22/21] hydrocodone 5 mg-acetaminophen 325 mg tablet 1 tab PO QID PRN #120 tab 06/12/19 [Rx Confirmed 02/22/21] travoprost 0.004 % eye drops 1 drops OP QPM #5 ml 06/12/19 [Rx Confirmed 02/22/21] CPAP Machine #1 ea 08/22/19 [Rx Confirmed 02/22/21] albuterol sulfate 90 mcg/actuation breath activated powder inhaler 2 puffs INHALATION Q4H PRN #1 ea 09/30/19 [Rx Confirmed 02/22/21] glimepiride 1 mg tablet 1 mg PO BID #60 tab 07/30/20 [Rx Confirmed 02/22/21] mupirocin 2 % topical ointment 1 applic TOPICAL BID #15 g 08/13/20 [Rx Confirmed 02/22/21] valacyclovir 1 gram tablet 2,000 mg PO Q12H 1 Days #20 tab MDD cold sores 1 [Rx Confirmed 02/22/21] lansoprazole 30 mg capsule,delayed release 30 mg PO DAILY #30 cap 10/02/20 [Rx Confirmed 02/22/21] pioglitazone 15 mg-metformin 850 mg tablet 1 tab PO BID #180 tab 11/19/20 [Rx Confirmed 02/22/21] amlodipine 10 mg tablet 10 mg PO DAILY #30 tab 12/01/20 [Rx Confirmed 02/22/21] chlorthalidone 25 mg tablet 12.5 mg PO DAILY #45 tab 12/01/20 [Rx Confirmed 02/22/21] bupropion HCl 150 mg 24 hr tablet, extended release 450 mg PO QAM #90 tab 01/25/21 [Rx Confirmed 02/22/21] losartan 100 mg tablet 100 mg PO DAILY #30 tab 01/25/21 [Rx Confirmed 02/22/21] venlafaxine 150 mg capsule,extended release 24 hr 300 mg PO DAILY #60 cap 01/25/21 [Rx Confirmed 02/22/21] oxycodone 5 mg PO Q6H PRN #30 tab 01/29/21 [Rx Confirmed 02/22/21] tramadol 50 mg PO Q6H PRN #30 tab 01/29/21 [Rx Confirmed 02/22/21] labetalol 200 mg tablet 200 mg PO BID #180 tab 02/15/21 [Rx Confirmed 02/22/21] levofloxacin 500 mg tablet 500 mg PO DAILY 7 Days #7 tab 02/19/21 [Rx Confirmed 02/22/21] oxycodone 5 mg PO Q6H PRN #30 tab 02/24/21 [Rx] tramadol 50 mg PO Q6H PRN #30 tab 02/24/21 [Rx] Home Medications Acetaminophen (Acetaminophen 500 Mg Tab) 1,000 mg PO Q8H RICCI Stop: 03/26/21 13:59 Last Admin: 02/26/21 05:43 Dose: 1,000 mg Documented by: Al Hydrox/Mg Hydrox/Simethicone (Aluminum/Magnesium Susp 30 Ml Udc) 30 ml PO Q6H PRN PRN Reason: Dyspepsia Stop: 03/25/21 12:40 Last Admin: 02/26/21 07:29 Dose: 30 ml Documented by: Amlodipine Besylate (Amlodipine Besylate 5 Mg Tab) 10 mg PO DAILY RICCI Stop: 03/25/21 08:59 Last Admin: 02/24/21 09:39 Dose: 10 mg Documented by: Benzocaine (Benzocaine 20% (Orajel) 11.9 Gm Tube) 1 appln MT QID PRN PRN Reason: canker sore lower lip as needed Stop: 03/26/21 11:55 Last Admin: 02/24/21 13:16 Dose: 1 appln Documented by: Bisacodyl (Bisacodyl 10 Mg Supp) 10 mg TX DAILY PRN PRN Reason: Constipation Stop: 03/25/21 12:40 Bupropion HCl (Bupropion Xl 150 Mg Tabcr) 450 mg PO QAM RICCI Stop: 03/25/21 08:59 Last Admin: 02/26/21 08:46 Dose: 450 mg Documented by: Dextrose (Dextrose 50% 50 Ml Syringe) 25 - 50 ml IV UD PRN; Protocol PRN Reason: Hypoglycemia Protocol Stop: 03/24/21 17:44 Diphenhydramine HCl (Diphenhydramine Capsule 25 Mg Cap) 25 mg PO Q6H PRN PRN Reason: Allergic Rhinitis/Insomnia Stop: 03/25/21 12:40 Famotidine (Famotidine 20 Mg Tab) 20 mg PO Q12H PRN PRN Reason: Dyspepsia Stop: 03/25/21 12:40 Glucagon (Glucagon For Inj 1 Mg Vial) 1 mg IM UD PRN; Protocol PRN Reason: Hypoglycemia Protocol Stop: 03/24/21 17:44 Glucose (Glucose 40% Gel 15 Gm Tube) 15 - 30 gm PO UD PRN; Protocol PRN Reason: Hypoglycemia Protocol Stop: 03/24/21 17:44 Glucose (Glucose 10 Tabs/Tube) 4 - 8 tabs PO UD PRN; Protocol PRN Reason: Hypoglycemia Protocol Stop: 03/24/21 17:44 Hydromorphone HCl (Hydromorphone Inj 0.5 Mg/0.5 Ml Syr) 0.5 - 1 mg IV Q3H PRN PRN Reason: MOD pain (scale 4-6) & Pre PT Stop: 03/08/21 12:05 Last Admin: 02/25/21 07:30 Dose: 1 mg Documented by: Hydroxyzine HCl (Hydroxyzine Hcl 25 Mg Tab) 25 mg PO Q8H PRN PRN Reason: Anxiety Stop: 03/25/21 12:40 Lorazepam (Ativan) 0.5 mg in 1 mls @ 0.5 mls/min IV Q8H PRN PRN Reason: Sedation/Anxiety Stop: 03/25/21 12:40 Last Admin: 02/23/21 19:44 Dose: 0.5 mls/min Documented by: Promethazine HCl 12.5 mg/ (Sodium Chloride) 50.5 mls @ 204 mls/hr IV Q6H PRN PRN Reason: Nausea &/or Vomiting Stop: 03/25/21 12:40 Dexamethasone 8 mg/ Syringe 2 mls @ 1 mls/min IV DAILY@0900 [facility] Stop: 03/27/21 08:59 Last Admin: 02/26/21 08:46 Dose: 1 mls/min Documented by: Influenza Virus Vaccine Quadrival (Do Not Administer Flu Vaccine) 1 ea N/A PRN PRN PRN Reason: Notification Stop: 03/25/21 12:40 Insulin Aspart (Insulin Aspart 100 Units/Ml 3 Ml Pen) 0 units SC ACHS [facility] Stop: 03/25/21 00:00 Last Admin: 02/26/21 08:58 Dose: 6 units Documented by: Labetalol HCl (Labetalol Hcl 200 Mg Tab) 200 mg PO BID [facility] Stop: 03/24/21 20:59 Last Admin: 02/26/21 08:46 Dose: 200 mg Documented by: Levofloxacin (Levofloxacin 500 Mg Tab) 500 mg PO DAILY@1100 [facility] Stop: 02/27/21 11:01 Last Admin: 02/25/21 11:20 Dose: 500 mg Documented by: Lorazepam (Lorazepam 0.5 Mg Tab) 0.5 mg PO Q8H PRN PRN Reason: Sedation/Anxiety Stop: 03/25/21 12:40 Last Admin: 02/24/21 17:11 Dose: 0.5 mg Documented by: Magnesium Hydroxide (Magnesium Hydroxide Susp 30 Ml Udc) 30 ml PO DAILY PRN PRN Reason: Constipation Stop: 03/25/21 12:40 Last Admin: 02/26/21 07:29 Dose: 30 ml Documented by: Metoclopramide HCl (Metoclopramide Hcl Inj 5 Mg/Ml 2 Ml Vial) 10 mg IV Q6H PRN PRN Reason: Nausea &/or Vomiting Stop: 03/25/21 12:40 Miscellaneous (Carbohydrates For Hypoglycemia ) 15 - 30 gm PO UD PRN PRN Reason: Hypoglycemia Treatment Stop: 03/24/21 17:44 Miscellaneous Information (Pharmacy Glycemic Mgmt Consult) 1 ea N/A UD PRN PRN Reason: Consult Stop: 03/24/21 17:15 Naloxone HCl (Naloxone Hcl 0.4 Mg/1 Ml Vial/Carp) 0.1 mg IV Q5M PRN; Protocol PRN Reason: Oversedation/Resp Depression Stop: 03/25/21 12:40 Ondansetron HCl (Ondansetron Inj 2 Mg/Ml 2 Ml Vial) 4 mg IV Q6H PRN PRN Reason: Nausea &/or Vomiting Stop: 03/25/21 12:40 Ondansetron HCl (Ondansetron 4 Mg Od Tab) 4 mg PO Q6H PRN PRN Reason: Nausea Stop: 03/25/21 12:40 Oxycodone HCl (Oxycodone Hcl Ir 5 Mg Tab (Immediate Release)) 5 - 10 mg PO Q4H PRN PRN Reason: mod to severe pain Stop: 03/08/21 12:05 Last Admin: 02/26/21 05:48 Dose: 5 mg Documented by: Pantoprazole Sodium (Pantoprazole 40 Mg Tab) 40 mg PO DAILY [facility]CI Stop: 03/25/21 08:59 Last Admin: 02/26/21 08:47 Dose: 40 mg Documented by: Pneumococcal Polyvalent Vaccine (Do Not Administer Pneumococcal Vaccine) 1 ea N/A PRN PRN PRN Reason: Notification Stop: 03/25/21 12:40 Polyethylene Glycol (Polyethylene (Miralax) 17 Gm Pack) 17 gm PO Q6 [facility] Stop: 03/26/21 05:59 Last Admin: 02/26/21 05:43 Dose: 17 gm Documented by: Senna/Docusate Sodium (Docusate Sodium/Senna 50/8.6mg Tab) 2 tab PO HS [facility] Stop: 03/25/21 20:59 Last Admin: 02/25/21 21:25 Dose: 2 tab Documented by: Sodium Biphosphate/Sodium Phosphate (Sod Phosphate/Sod Biphosphate Enema 132 Ml Btl) 132 ml TX ONE PRN PRN Reason: Constipation Stop: 03/25/21 12:40 Tramadol HCl (Tramadol Hcl 50 Mg Tablet) 50 - 100 mg PO Q4H PRN PRN Reason: Moderate-Severe Pain & Pre PT Stop: 03/25/21 12:40 Last Admin: 02/24/21 15:56 Dose: 100 mg Documented by: Travoprost (Travoprost Z 0.004% Oph Soln 2.5 Ml Btl) 1 drops OP QPM [facility] Stop: 03/24/21 20:59 Last Admin: 02/25/21 21:26 Dose: 1 drops Documented by: Venlafaxine HCl (Venlafaxine Hcl Xr 150 Mg Capxr) 300 mg PO DAILY [facility]CI Stop: 03/25/21 08:59 Last Admin: 02/26/21 08:47 Dose: 300 mg Documented by: PG Care Time/CCT Total # of Minutes Spent Total Time Spent with Patient: Total time spent is greater than 50% in coordination of care (as documented) at patient's floor/unit and/or counseling patient:40 Coding Level of Care Code 91715 Subseq Hosp Care Lvl 3 Diagnoses Abnormal magnetic resonance imaging of lumbar spine R93.7 Controlled diabetes mellitus with chronic kidney disease E11.22 Hypertension I10 Hypertension type: essential hypertension Urinary retention R33.9 Obstructive sleep apnea G47.33 (1) Hypertension Hypertension type: essential hypertension Qualified Code(s): I10 - Essential (primary) hypertension
--- NOTE | 2021-02-26 10:13 | Discharge Summary ---
Date of Service February 26, 2021 Principal Diagnosis Lumbar hematoma Discharge Data Allergies Allergy/AdvReac Type Severity Reaction Status Date / Time simvastatin Allergy Intermediate ? abnormal Verified 02/22/21 10:57 labs, pt unsure exactly cephalexin Allergy Mild upset Verified 02/23/21 09:06 stomach hydrochlorothiazide Allergy Mild UPSET Verified 02/22/21 10:57 STOMACH sulfamethoxazole Allergy Mild UPSET Verified 02/22/21 10:57 STOMACH trimethoprim Allergy Mild UPSET Verified 02/22/21 10:57 STOMACH Bactrim Allergy Unknown UPSET Verified 08/26/15 09:51 STOMACH dicloxacillin AdvReac Mild NAUSEA/VOMI Verified 02/22/21 10:57 TING Penicillins AdvReac Mild NAUSEA/VOMI Verified 02/23/21 09:06 TING Consultations 02/22/21 12:06 Consult Anesthesiology Routine Consult Internal Medicine Routine Procedures Performed Operation Date: 02/23/21 09:05 Actual Procedures s Removal of L3 pedicle screws, (Not Applicable) - Gilbert Bedoya DO s Evacuation of lumbar hematoma, (Not Applicable) - Gilbert Bedoya DO p Revision decompression with bilateral medial facetectomies and foraminotomies L2-3 and L3-4, Posterior spinal fusion L2-3 L3-4, Placement posterior segmental instrumentation L2 and L3 with connection to the pre-existing L4-L5 and S1 screws, Interbody fusion L2-3 and L3-4, Placement peek cage 14 x 26 mm at L2-3 and 13 x 26 mm at L3-4, Placement locally harvested morselized autograft in the posterior gutters, Placement of infuse collagen sponge, master graft in the posterior gutters and I factor in the interbody spaces of L2-3 and L3-4(Not Applicable) - Gilbert Bedoya DO Ordered Studies 02/23/21 [place] lumbar spine 2-3V Routine Hospital Course (1) Lumbar spinal stenosis: Patient underwent evacuation of hematoma extension of the fusion of the lumbar spine. He tolerates well second orthopedic for postoperative. He progressed slowly over the course the next few days but eventually became much more dependent RUDY drain decreasing probably. Pain well controlled. Excellent strength testing. Subsequent discharge home. Discharge orders instructions from the chart for further review. Total Time Total Time Spent Total Time Spent (In Minutes): 20 minutes Discharge Plan Discharge Items Patient Disposition: Home - Self-Care Reason For Visit: POST OP LUMBAR SEROMA Discharge Diagnosis: Lumbar hematoma with loosening of hardware. Activity: As commented below Non-emergency contact: Primary Care Provider Call non-emergency contact if: you have any medication questions Follow-up/Referrals: Pradip Trinidad MD [Primary Care Provider] - Diet: Regular Addtl Attending Provider Instructions: ACTIVITY RECOMMENDATIONS: SELF CARE INSTRUCTIONS AFTER THORACIC/LUMBAR FUSIONS 1. You may walk to your tolerance. It is good exercise for your legs and back. Expect some back and intermittent leg aches and pains. 2. You may perform "counter-top" level activities (make a sandwich, adama with a project, etc.). 3. No bending or lifting of more than 10 pounds or back twisting of any nature (roll like a log when turning in bed). 4. You may ride in a car for 20-30 minutes at a time. No driving until after your first visit with your doctor. 5. Frequent changes of position and restricting sitting to 30 minutes at a time will help limit the amount of back spasms and stiffness you may experience. 6. You may discontinue the use of ambulatory aids (cane, crutches, etc.) once your strength and confidence allow. 7. You may sustainability manager the shower and let water strike your incision when you arrive home at least once daily. Do not take a tub bath, sit in a hot tub or go into a swimming pool until after your first recheck in the office. SPECIAL CARE INSTRUCTIONS: VERY IMPORTANT TO READ AND REVIEW A. Your surgical incision has been closed with a cosmetic suture under the skin that will dissolve in about 6 weeks. In 14 days, you can use a pair of clean scissors and cut the suture that is left outside of the skin at the ends of your incision. 1. The small skin tapes can be removed 7 days after surgery if they have not fallen off by that point. 2. You may keep the wound open to air as much as possible to promote healing after post-op day number 5 unless told otherwise by your doctor. 3. If you think the wound looks like it is becoming infected (redness or worsening drainage) and/or you are experiencing fever, chill or worsening back pain and muscle spasms, contact the office so that we may evaluate you as soon as possible. B. Complications are uncommon, but please contact us if you have any signs or symptoms of: 1. wound infection (fever higher than 102.5 degrees F, redness, separation of wound, drainage, or increasing pain from the incision) 2. blood clots in legs (pain, swelling, redness and warmth in legs) 3. urinary tract infection (fever higher than 102.5 degrees F, burning upon urination or increased frequency of urination) 4. nerve problems (inability to walk on your toes or heels, numbness, loss of bowel or bladder control) 5. any other symptoms that concern you C. Please call the office at if you have any concerns or questions about your operation or recovery. D. No smoking! Smoking drastically decreases the chance of a solid fusion. E. Do not take any anti-inflammatory medications (Indocin, Advil, Motrin, Aspirin, Naprosyn, etc.) as these may inhibit the chance of a solid fusion. Tylenol is okay to take for pain. MANAGING PAIN AFTER SPINAL SURGERY 1. Narcotic medication is intended for short-term use and will be provided for surgical pain. Surgical pain usually lasts for a period of 4-6 weeks. Narcotic medication includes Percocet, Vicodin, Darvocet, Tylenol #3 or Lortab. 2. Longer-term pain is more appropriately treated with non-narcotic medication such as Tylenol ES. 3. Muscle spasm is not appropriately treated with narcotics. Muscle relaxers such as Soma, Flexeril or Skelaxin can be used along with Tylenol ES. 4. Remember that we all live with some "aches and pains". This is not unusual or uncommon after an injury or as we get older. a. Back pain is expected and may include muscle spasms for 4 to 6 weeks after surgery. The pain should gradually improve. If the pain worsens for no apparent reason, please contact the office. b. Intermittent leg pain may also be experienced and should not be concerned about unless it worsens for no apparent reason. If so, please contact the office. 5. We will provide appropriate medication within the normal guidelines of their prescribed use. We will also be very cautious and aware of potential abuse and extended duration of patients' medication needs. a. Pain medications are for your comfort and to assist with sleep and rest s o that the tissue can heal. They are not provided in order to return to normal activity and should not be used through the day. To do so or worsening pain at night can result from ongoing tissue damage and development of tolerance to the prescribed medicine. 6. Please allow 2-3 days to process refills. Prescriptions will not be mailed but must be picked up at the office. FOLLOW UP VISIT: Keep your scheduled follow-up appointment. Any questions, please call the office at . Pending Studies at Discharge: No Stand-Alone Forms: My [facility], Smoking Cessation Medications and DC Order Prescriptions: New oxycodone 5 mg tablet 5 mg PO Q6H PRN (Reason: pain, severe) Qty: 30 RF: 0 tramadol 50 mg tablet 50 mg PO Q6H PRN (Reason: pain, moderate) Qty: 30 RF: 0 Continued albuterol sulfate 90 mcg/actuation aerosol powdr breath activated 2 puffs inhalation Q4H PRN (Reason: shortness of breath or wheezing) Qty: 1 RF: 6 glimepiride 1 mg tablet 1 mg PO BID Qty: 60 RF: 11 lansoprazole 30 mg capsule,delayed release(DR/EC) 30 mg PO DAILY Qty: 30 RF: 5 pioglitazone-metformin [Actoplus MET] 15-850 mg tablet 1 tab PO BID Qty: 180 RF: 3 amlodipine [Norvasc] 10 mg tablet 10 mg PO DAILY Qty: 30 RF: 5 chlorthalidone 25 mg tablet 12.5 mg PO DAILY Qty: 45 RF: 3 bupropion HCl 150 mg tablet extended release 24 hr 450 mg PO QAM Qty: 90 RF: 11 losartan 100 mg tablet 100 mg PO DAILY Qty: 30 RF: 5 venlafaxine 150 mg capsule,extended release 24hr 300 mg PO DAILY Qty: 60 RF: 5 labetalol 200 mg tablet 200 mg PO BID Qty: 180 RF: 3 aspirin 81 mg tablet,delayed release (DR/EC) 81 mg PO DAILY Qty: 90 RF: 3 (DME) Contour Test Strips strip See Dose Instructions .ROUTE .MEDSUPPLY Qty: 200 RF: 3 hydrocodone-acetaminophen 5-325 mg tablet 1 tab PO QID PRN (Reason: pain) Qty: 120 RF: 0 Travatan Z 0.004 % drops 1 drops OP QPM Qty: 5 RF: 6 (DME) CPAP Machine Misc See Dose Instructions .ROUTE .MEDSUPPLY Qty: 1 RF: 0 mupirocin 2 % ointment 1 applic topical BID Qty: 15 RF: 0 valacyclovir 1 gram tablet 2,000 mg PO Q12H MDD cold sores 1 Days Qty: 20 RF: 2 levofloxacin 500 mg tablet 500 mg PO DAILY 7 Days Qty: 7 RF: 0 oxycodone 5 mg tablet 5 mg PO Q6H PRN (Reason: pain, severe) Qty: 30 RF: 0 tramadol 50 mg tablet 50 mg PO Q6H PRN (Reason: pain, moderate) Qty: 30 RF: 0 Discharge Orders: Discharge Order (Routine); Ordered 02/26/21 Ordered By: Gilbert Bedoya Admission Data Admit Date/Time: 02/22/21 12:06 Attending Provider: Gilbert Bedoya Admit Provider: Gilbert Bedoya Primary Care Provider: Pradip Trinidad Other Providers: Debra Mcgee ; America Shell ; Negra Padilla ; Leann Clark ; Geeta Kraus ; Muriel Gallegos ; Milton Metz ; Reddy Dunn ; Renny Gale ; Yobany Sawyer ; Kayley Sawyer ; Alphonse Hubbard ; Elena Quesada ; Weston Rodriguez ; Stef Ashford ; Augustin Cary ; Jeremi Wynne ; Maki Gan ; Wilmer Dhaliwal ; Sandra Oseguera ; Alayna Dhaliwal ; Rubin Baer ; Rosana Lanza ; Enoch Reed ; Ellen Burns ; Opal Camacho ; Rosana Perkins ; Marcie Gibbs ; Jose Muse ; Alaina Valente ; Jessica Warren ; Helen Lorenz ; Hilaria Nevarez ; Syed Nevarez V ; Jagdish Wilson ; Negra [place] ; Davin Mason ; Samson Amado ; Lyla Frausto ; Daphne Murphy ; Syed Figueredo ; Harshad Gan ; Bryant Morrow ; Ngoc Valiente ; Helen Florez ; Ramesh Duvall ; Vitaly Wynne ; Delphine Zelaya ; Rajeev Mina ; Sara Lott ; Ok [place] ; Bryn Paula ; Dex Salazar ; Alayna Sheldon ; Harris Means ; Dom Beck ; Sai Downing ; Roberto Davis ; Bryant Gibbs ; Rachel Hunter ; Rosana Norwood ; Ike Tarango ; Elena Mcintosh ; Alaina Paz ; Ino Magallon. ; Juan José Aleman. ; Maggy Blevins ; Jeffrey Olivares ; Sharan Florez ; Damion Cervantes. ; Rajeev Florian ; Alphonse Velez ; Rosetta Mathias ; Turner Henao ; Daniel Bennett
[2021-02-26] MEDS ORDERED: ENOXAPARIN INJ 30 MG/0.3 ML SYR SQ SCH (10:15)
[2021-02-26] MEDS: levoFLOXacin 500 MG TAB PO SCH (11:20)
== END 2021-02-26 12:30 | disposition home or self-care (01) | DRG 454 ==
LOC: ED 10:20 → EDINP 12:06 → 3E 16:36